=== PATIENT | female | born 1950 | race Caucasian/White ===

== ENCOUNTER 2018-09-18 16:00 | Inpatient (IN) | payer MEDICARE, OTHER ==
[2018-09-18] MEDS ORDERED: SODIUM CHLORIDE 0.9% 1,000 ML IV STA ×2 (16:38→18:48)
--- NOTE | 2018-09-18 16:46 | ED ---
General Adult HPI - General Chief complaint: Weakness Stated complaint: weakness, confusion Time Seen by Provider: 09/18/18 16:17 Source: patient, family Mode of arrival: ambulatory Limitations: no limitations - History of Present Illness Initial comments: Patient is a pleasant 68-year-old female presenting to the emergency Department with generalized weakness. Symptoms have progressed over the past 3 months or so. Patient does frequently trip and fall. Patient did have a trip and fall today and was able to get up on her own. Patient states she laid on the ground for maybe 3 or 4 hours. Family did have to help her up. Patient has been more forgetful lately and problem with simple activities such as using a remote control. Symptoms have been gradually progressive. Patient has been more depressed recently. Patient does have chronic depression. Patient questions if she needs changes with her medications. Patient denies any isolated area of weakness. Patient believes she has chronic daily fevers that is unchanged. No change within the past several days weeks or months regarding her chronic fevers. Patient denies any injury. No headache. - Related Data Home Medications Medication Instructions Recorded Confirmed Atenolol [Tenormin] 50 mg PO DAILY 08/07/17 09/18/18 Enalapril [Vasotec] 10 mg PO DAILY 08/07/17 09/18/18 Insulin NPH Human Isophane See Protocol SQ HS 08/07/17 09/18/18 [NovoLIN N] Levothyroxine Sodium [Synthroid] 112 mcg PO DAILY 08/07/17 09/18/18 QUEtiapine FUMARATE [SEROquel] 300 mg PO HS 08/07/17 09/18/18 Simvastatin [Zocor] 10 mg PO HS 08/07/17 09/18/18 metFORMIN HCL 1,000 mg PO BID 08/07/17 09/18/18 DULoxetine HCL [Cymbalta] 60 mg PO DAILY 09/18/18 09/18/18 Gabapentin [Neurontin] 100 mg PO BID 09/18/18 09/18/18 Insulin Glargine,Hum.rec.anlog 60 unit SQ HS 09/18/18 09/18/18 [Basaglar Kwikpen U-100] Allergies Allergy/AdvReac Type Severity Reaction Status Date / Time No Known Allergies Allergy Verified 09/18/18 17:00 Review of Systems ROS Statement: Those systems with pertinent positive or pertinent negative responses have been documented in the HPI. ROS Other: All systems not noted in ROS Statement are negative. Constitutional: Reports: as per HPI Eyes: Denies: eye pain ENT: Denies: ear pain Respiratory: Denies: cough, dyspnea Cardiovascular: Denies: chest pain Endocrine: Reports: fatigue (Patient states she sleeps up to 16 hours a day) Gastrointestinal: Denies: abdominal pain Genitourinary: Denies: dysuria Musculoskeletal: Denies: back pain Skin: Denies: rash Neurological: Reports: as per HPI Past Medical History Past Medical History: Diabetes Mellitus, Hyperlipidemia, Hypertension History of Any Multi-Drug Resistant Organisms: MRSA Date of last positivie culture/infection: 1999 MDRO Source:: lt foot Past Surgical History: Section, Hysterectomy, Tonsillectomy Past Psychological History: Anxiety, Depression Smoking Status: Former smoker Past Alcohol Use History: None Reported Past Drug Use History: None Reported General Exam Limitations: no limitations General appearance: alert, in no apparent distress Head exam: Present: atraumatic Eye exam: Present: normal appearance, PERRL, EOMI ENT exam: Present: normal oropharynx Neck exam: Present: normal inspection. Absent: tenderness Respiratory exam: Present: normal lung sounds bilaterally Cardiovascular Exam: Present: regular rate, normal rhythm GI/Abdominal exam: Present: soft. Absent: tenderness Extremities exam: Present: normal inspection, full ROM. Absent: tenderness Back exam: Present: normal inspection Neurological exam: Present: alert, oriented X3, CN II-XII intact. Absent: motor sensory deficit Expanded Neurological exam: Present: protecting the airway Patient oriented to: Present: person, place, time Speech: Present: fluid speech Cranial nerves: EOM's Intact: Normal, Facial Sensation: Normal Sensory exam: Upper Extremity Light Touch: Normal, Lower Extremity Light Touch: Normal Motor strength exam: RUE: 5, LUE: 5, RLE: 5, LLE: 5 Eye Response: (4) open spontaneously Motor Response: (6) obeys commands Verbal Response: (5) oriented Psychiatric exam: Present: normal affect, normal mood Skin exam: Present: normal color Course Vital Signs 09/18/18 16:04 Temperature 97.9 F Pulse Rate 71 Respiratory 20 Rate Blood Pressure 140/60 O2 Sat by Pulse 98 Oximetry EKG Findings - EKG Comments: EKG Findings:: Normal sinus rhythm 69. MN 160. QRS 94. QT 436. QTc 467. Normal axis. Normal QRS. No acute ST change. Medical Decision Making - Medical Decision Making patient reevaluated. Patient and family updated on results and plan. Patient given fluids for dehydration and insulin for hyperglycemia. Case was discussed in detail with practitioner Abigail, covering for Dr. Sanchez, who will admit for hospital call. - Lab Data Result diagrams: 09/18/18 16:42 09/18/18 16:25 Lab Results 09/18/18 09/18/18 09/18/18 Range/Units 16:25 16:25 16:25 WBC (3.8-10.6) k/uL RBC (3.80-5.40) m/uL Hgb (11.4-16.0) gm/dL Hct (34.0-46.0) % MCV (80.0-100.0) fL MCH (25.0-35.0) pg MCHC (31.0-37.0) g/dL RDW (11.5-15.5) % Plt Count (150-450) k/uL Neutrophils % % Lymphocytes % % Monocytes % % Eosinophils % % Basophils % % Neutrophils # (1.3-7.7) k/uL Lymphocytes # (1.0-4.8) k/uL Monocytes # (0-1.0) k/uL Eosinophils # (0-0.7) k/uL Basophils # (0-0.2) k/uL PT (9.0-12.0) sec INR (<1.2) APTT (22.0-30.0) sec Sodium 129 L (137-145) mmol/L Potassium 5.4 H (3.5-5.1) mmol/L Chloride 93 L (98-107) mmol/L Carbon Dioxide 22 (22-30) mmol/L Anion Gap 14 mmol/L BUN 41 H (7-17) mg/dL Creatinine 1.41 H (0.52-1.04) mg/dL Est GFR (CKD-EPI)AfAm 45 (>60 ml/min/1.73 sqM) Est GFR (CKD-EPI)NonAf 39 (>60 ml/min/1.73 sqM) Glucose 679 H* (74-99) mg/dL Plasma Lactic Acid Norris 2.1 H* (0.7-2.0) mmol/L Calcium 10.3 H (8.4-10.2) mg/dL Phosphorus 5.3 H (2.5-4.5) mg/dL Magnesium 1.6 (1.6-2.3) mg/dL Total Bilirubin 0.6 (0.2-1.3) mg/dL AST 17 (14-36) U/L ALT 19 (9-52) U/L Alkaline Phosphatase 90 (38-126) U/L Total Creatine Kinase 45 (30-135) U/L CK-MB (CK-2) 1.2 (0.0-2.4) ng/mL CK-MB (CK-2) Rel Index 2.7 Troponin I <0.012 (0.000-0.034) ng/mL NT-Pro-B Natriuret Pep pg/mL Total Protein 6.8 (6.3-8.2) g/dL Albumin 4.1 (3.5-5.0) g/dL TSH 3.550 (0.465-4.680) mIU/L Free T4 1.07 (0.78-2.19) ng/dL Free T3 pg/mL 2.1 L (2.8-5.3) pg/ml Acetone, Qual (Negative) 09/18/18 09/18/18 09/18/18 Range/Units 16:25 16:25 16:42 WBC 10.2 (3.8-10.6) k/uL RBC 4.53 (3.80-5.40) m/uL Hgb 13.3 (11.4-16.0) gm/dL Hct 41.2 (34.0-46.0) % MCV 91.0 (80.0-100.0) fL MCH 29.4 (25.0-35.0) pg MCHC 32.3 (31.0-37.0) g/dL RDW 13.2 (11.5-15.5) % Plt Count 281 (150-450) k/uL Neutrophils % 76 % Lymphocytes % 14 % Monocytes % 4 % Eosinophils % 4 % Basophils % 1 % Neutrophils # 7.8 H (1.3-7.7) k/uL Lymphocytes # 1.5 (1.0-4.8) k/uL Monocytes # 0.4 (0-1.0) k/uL Eosinophils # 0.4 (0-0.7) k/uL Basophils # 0.1 (0-0.2) k/uL PT 10.3 (9.0-12.0) sec INR 1.0 (<1.2) APTT 23.6 (22.0-30.0) sec Sodium (137-145) mmol/L Potassium (3.5-5.1) mmol/L Chloride (98-107) mmol/L Carbon Dioxide (22-30) mmol/L Anion Gap mmol/L BUN (7-17) mg/dL Creatinine (0.52-1.04) mg/dL Est GFR (CKD-EPI)AfAm (>60 ml/min/1.73 sqM) Est GFR (CKD-EPI)NonAf (>60 ml/min/1.73 sqM) Glucose (74-99) mg/dL Plasma Lactic Acid Norris (0.7-2.0) mmol/L Calcium (8.4-10.2) mg/dL Phosphorus (2.5-4.5) mg/dL Magnesium (1.6-2.3) mg/dL Total Bilirubin (0.2-1.3) mg/dL AST (14-36) U/L ALT (9-52) U/L Alkaline Phosphatase (38-126) U/L Total Creatine Kinase (30-135) U/L CK-MB (CK-2) (0.0-2.4) ng/mL CK-MB (CK-2) Rel Index Troponin I (0.000-0.034) ng/mL NT-Pro-B Natriuret Pep 85 pg/mL Total Protein (6.3-8.2) g/dL Albumin (3.5-5.0) g/dL TSH (0.465-4.680) mIU/L Free T4 (0.78-2.19) ng/dL Free T3 pg/mL (2.8-5.3) pg/ml Acetone, Qual (Negative) 09/18/18 Range/Units 17:50 WBC (3.8-10.6) k/uL RBC (3.80-5.40) m/uL Hgb (11.4-16.0) gm/dL Hct (34.0-46.0) % MCV (80.0-100.0) fL MCH (25.0-35.0) pg MCHC (31.0-37.0) g/dL RDW (11.5-15.5) % Plt Count (150-450) k/uL Neutrophils % % Lymphocytes % % Monocytes % % Eosinophils % % Basophils % % Neutrophils # (1.3-7.7) k/uL Lymphocytes # (1.0-4.8) k/uL Monocytes # (0-1.0) k/uL Eosinophils # (0-0.7) k/uL Basophils # (0-0.2) k/uL PT (9.0-12.0) sec INR (<1.2) APTT (22.0-30.0) sec Sodium (137-145) mmol/L Potassium (3.5-5.1) mmol/L Chloride (98-107) mmol/L Carbon Dioxide (22-30) mmol/L Anion Gap mmol/L BUN (7-17) mg/dL Creatinine (0.52-1.04) mg/dL Est GFR (CKD-EPI)AfAm (>60 ml/min/1.73 sqM) Est GFR (CKD-EPI)NonAf (>60 ml/min/1.73 sqM) Glucose (74-99) mg/dL Plasma Lactic Acid Norris (0.7-2.0) mmol/L Calcium (8.4-10.2) mg/dL Phosphorus (2.5-4.5) mg/dL Magnesium (1.6-2.3) mg/dL Total Bilirubin (0.2-1.3) mg/dL AST (14-36) U/L ALT (9-52) U/L Alkaline Phosphatase (38-126) U/L Total Creatine Kinase (30-135) U/L CK-MB (CK-2) (0.0-2.4) ng/mL CK-MB (CK-2) Rel Index Troponin I (0.000-0.034) ng/mL NT-Pro-B Natriuret Pep pg/mL Total Protein (6.3-8.2) g/dL Albumin (3.5-5.0) g/dL TSH (0.465-4.680) mIU/L Free T4 (0.78-2.19) ng/dL Free T3 pg/mL (2.8-5.3) pg/ml Acetone, Qual Negative (Negative) - Radiology Data Radiology results: report reviewed (computed tomography scan of the brain reveals no acute process), image reviewed (Chest x-ray shows no acute process) Disposition Clinical Impression: Hyperglycemia, Dehydration Disposition: ADMITTED IP TO THIS [facility] Condition: Serious Is patient prescribed a controlled substance at d/c from ED?: No Referrals: Nasir Perea DO [Primary Care Provider] - 1-2 days Decision Time: 18:50
[2018-09-18 17:18] LABS: Basophils # (A) 0.1 k/uL (0-0.2); Basophils % (A) 1 %; Eosinophils # (A) 0.4 k/uL (0-0.7); Eosinophils % (A) 4 %; HCT 41.2 % (34.0-46.0); HGB 13.3 gm/dL (11.4-16.0); Lymphocytes # (A) 1.5 k/uL (1.0-4.8); Lymphocytes % (A) 14 %; MCH 29.4 pg (25.0-35.0); MCHC 32.3 g/dL (31.0-37.0); Mean Platelet Volume 7.3; Monocytes # (A) 0.4 k/uL (0-1.0); Monocytes % (A) 4 %; Neutrophils # (A) 7.8 k/uL (1.3-7.7); Neutrophils % (A) 76 %; Platelet Count 281 k/uL (150-450); RBC 4.53 m/uL (3.80-5.40); RDW 13.2 % (11.5-15.5); WBC 10.2 k/uL (3.8-10.6)
[2018-09-18 17:37] LABS: Albumin 4.1 g/dL (3.5-5.0); Calcium 10.3 mg/dL (8.4-10.2); Magnesium 1.6 mg/dL (1.6-2.3); Phosphorus 5.3 mg/dL (2.5-4.5); Potassium 5.4 mmol/L (3.5-5.1); Total Bilirubin 0.6 mg/dL (0.2-1.3); Total Protein 6.8 g/dL (6.3-8.2)
--- NOTE | 2018-09-18 17:38 | CT ---
EXAMINATION: CT brain wo con DATE AND TIME: 09/18/2018 5:23 PM CLINICAL INDICATION: PHH; weakness TECHNIQUE: Standard departmental protocol. COMPARISON: None. FINDINGS: The calvarium is intact. There is no intracranial hemorrhage. There is no intracranial mass or mass effect. No definite new intra-axial or extra-axial attenuation defect. The paranasal sinuses, middle ear cavities, and mastoid sinus air cells are clear. The orbits are unremarkable. IMPRESSION: NO ACUTE PROCESS. Note: The ventricular system is more prominent than the sulcal pattern are cisterns, a pattern which can correlate with a clinical diagnosis of normal pressure hydrocephalus.
[2018-09-18 17:39] LABS: Creatine Kinase 45 U/L (30-135)
[2018-09-18 17:48] LABS: Partial Thromboplastin Time 23.6 sec (22.0-30.0); Prothrombin Time 10.3 sec (9.0-12.0)
[2018-09-18 17:52] LABS: Creatine Kinase MB 1.2 ng/mL (0.0-2.4); Troponin I <0.012 ng/mL (0.000-0.034)
[2018-09-18 17:53] LABS: T4, Free (Free Thyroxine) 1.07 ng/dL (0.78-2.19)
--- NOTE | 2018-09-18 17:58 | XR ---
EXAMINATION: XR chest 2V DATE AND TIME: 09/18/2018 5:26 PM CLINICAL INDICATION: PHH; Weakness TECHNIQUE: Departmental protocol COMPARISON: None FINDINGS: The lungs are clear. The pleural spaces are negative. The cardiac silhouette is not enlarged. The remainder of the mediastinal silhouette is unremarkable. The skeletal structures and soft tissues are negative for acute findings. IMPRESSION: NO ACUTE PROCESS.
[2018-09-18] MEDS ORDERED: INSULIN REGULAR 100 UNIT/ML VIAL IV ONE (18:48)
[2018-09-18] MEDS ORDERED: NALOXONE 0.4 MG/ML 1 ML VIAL IV PRN (18:51)
[2018-09-18 19:34] LABS: Amorphous Sediment,Urine Rare /hpf; Appearance,Urine Clear (Clear); Bacteria,Urine Occasional /hpf; Bilirubin,Urine Negative (Negative); Blood,Urine Small (Negative); Color,Urine Light Yellow; Glucose,Urine (UA) 4+ (Negative); Hyaline Casts,Urine 8 /lpf (0-2); Ketones,Urine 1+ (Negative); Leukocyte Esterase,Urine Trace (Negative); Mucus,Urine Rare /hpf; Nitrite,Urine Negative (Negative); Protein,Urine Negative (Negative); RBC,Urine 1 /hpf (0-5); Specific Gravity,Urine 1.019 (1.001-1.035); Squamous Epithelial Cell,Urine 6 /hpf (0-4); Urobilinogen,Urine <2.0 mg/dL (<2.0)
[2018-09-18 19:45] LABS: Amphetamine Screen,Urine Not Detected (NotDetected); Barbiturate Screen,Urine Not Detected (NotDetected); Benzodiazepines Screen,Urine Not Detected (NotDetected); Cocaine Screen,Urine Not Detected (NotDetected); Methadone Screen, Urine Not Detected (NotDetected); Opiate Screen,Urine Not Detected (NotDetected); Oxycodone Screen, Urine Not Detected (NotDetected); Phencyclidine Screen,Urine Not Detected (NotDetected); Tricyclic Antidepressant,Urine Detected (NotDetected); Urn Cannabinoid Scrn Not Detected (NotDetected)
[2018-09-18 20:23] LABS: Glucose,Whole Blood 450 mg/dL (75-99)
[2018-09-18 21:01] LABS: Glucose,Whole Blood 418 mg/dL (75-99)
[2018-09-18] MEDS: INSULIN ASPART 100 UNIT/ML 1 ML 10 ML VIAL SQ SCH (21:09)
[2018-09-18] MEDS: SODIUM CHLORIDE 0.9% 1,000 ML IV SCH (21:10)
[2018-09-19 02:32] VITALS: BMI 40.2
[2018-09-19 02:35] LABS: Glucose,Whole Blood 357 mg/dL (75-99)
[2018-09-19] MEDS ORDERED: INSULIN ASPART 100 UNIT/ML 1 ML 10 ML VIAL SQ ONE (02:35)
[2018-09-19] MEDS: SODIUM CHLORIDE 0.9% 1,000 ML IV SCH ×3 (05:14→22:00)
[2018-09-19 07:03] LABS: Glucose,Whole Blood 332 mg/dL (75-99)
[2018-09-19] MEDS: INSULIN ASPART 100 UNIT/ML 1 ML 10 ML VIAL SQ SCH ×6 (08:20→20:40)
[2018-09-19 08:28] LABS: Calcium 9.4 mg/dL (8.4-10.2); Potassium 4.5 mmol/L (3.5-5.1)
[2018-09-19 11:48] LABS: Glucose,Whole Blood 423 mg/dL (75-99)
--- NOTE | 2018-09-19 12:24 | P.CN ---
Psychiatric Consult - . Consult date: 09/19/18 Consult:: 09/19/18 09:26 Depression and medication review Assessment and Plan Assessment: Patient is a pleasant 68-year-old female presenting to the emergency Department with generalized weakness. Symptoms have progressed over the past 3 months or so. Patient does frequently trip and fall. Patient did have a trip and fall today and was able to get up on her own. Patient states she laid on the ground for maybe 3 or 4 hours. Family did have to help her up. Patient has been more forgetful lately and problem with simple activities such as using a remote control. Symptoms have been gradually progressive. Patient has been more depressed recently. Patient does have chronic depression. Patient questions if she needs changes with her medications. Patient denies any isolated area of weakness. Patient believes she has chronic daily fevers that is unchanged. No change within the past several days weeks or months regarding her chronic fevers. Patient denies any injury. No headache. - Related Data Home Medications Medication Instructions Recorded Confirmed Atenolol [Tenormin] 50 mg PO DAILY 08/07/17 09/18/18 Enalapril [Vasotec] 10 mg PO DAILY 08/07/17 09/18/18 Insulin NPH Human Isophane See Protocol SQ HS 08/07/17 09/18/18 [NovoLIN N] Levothyroxine Sodium [Synthroid] 112 mcg PO DAILY 08/07/17 09/18/18 QUEtiapine FUMARATE [SEROquel] 300 mg PO HS 08/07/17 09/18/18 Simvastatin [Zocor] 10 mg PO HS 08/07/17 09/18/18 metFORMIN HCL 1,000 mg PO BID 08/07/17 09/18/18 DULoxetine HCL [Cymbalta] 60 mg PO DAILY 09/18/18 09/18/18 Gabapentin [Neurontin] 100 mg PO BID 09/18/18 09/18/18 Insulin Glargine,Hum.rec.anlog 60 unit SQ HS 09/18/18 09/18/18 [Basaglyuan nApen U-100] Allergies Allergy/AdvReac Type Severity Reaction Status Date / Time No Known Allergies Allergy Verified 09/18/18 17:00 Past Medical History Past Medical History: Diabetes Mellitus, Hyperlipidemia, Hypertension History of Any Multi-Drug Resistant Organisms: MRSA Date of last positivie culture/infection: 1999 MDRO Source:: lt foot Past Surgical History: Section, Hysterectomy, Tonsillectomy Past Psychological History: Anxiety, Depression Smoking Status: Former smoker Past Alcohol Use History: None Reported Past Drug Use History: None Reported Mental Status Examination - this is a 68-year-old female who stated she's had depression for a number years and has attempted to go to [facility] partial hospitalization was told she couldn't go there because her insurance didn't cover. She came in through the ED last night with confusion and feeling depressed. General Appearance: [disheveled, appears older than stated age Speech/Language: [ slow, slurred, rambled, hesitant, halting, monotone, soft] Attitude/Behavior: [ withdrawn, indifferent] Mood: [depressed 5 out of 10, , anxious 5 out of 10, fearful, hopelessness Affect: [ flat, incongruent, blunted constricted,] Orientation: [Not time, person, place situation] Thought Content: [wnl, denies delusions, obsessions, phobias, other] Risk Factors: [Has suicidal (ideations, plan), not Homicidal (ideations, plan) Perception: [wnl, admits hallucinations (auditory, Thought Processes: [concrete, circumstantial, tangential, other] Concentration/Attention Span: [ impaired] [Per observation and interview with the patient] Recent Memory: [ impaired] [0 out of 3 in 3 minutes] Remote Memory: [ impaired] [past events, as related history] Intelligence: [below average] [based on history, based on vocabulary, syntax, grammar, and content] Judgement: [ poor] [per patient's behavior/history of present illness] Insight: [ poor] [understanding severity of illness/history of present illness] 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 PhD (1) Depression Current Visit: Yes Status: Acute Code(s): F32.9 - MAJOR DEPRESSIVE DISORDER , SINGLE EPISODE, UNSPECIFIED SNOMED Code(s): 46027346 Time with Patient: Greater than 30
[2018-09-19] MEDS ORDERED: INSULIN ASPART 100 UNIT/ML 1 ML 10 ML VIAL SQ SCH (12:30)
[2018-09-19] MEDS: DULoxetine HCL 60 MG CAPSULE.DR PO SCH (12:57)
--- NOTE | 2018-09-19 13:04 | P.HPIM ---
History of Present Illness 68-year-old pleasant female came to Hospital with complaints of lightheadedness. Patient is found to have dehydration hyperglycemia leading to dehydration from my polyuria. Patient admitted to noncompliance with the insulin. Patient denied any fever chills runny nose cough. Patient to albert creatinine is 1.4 baseline is within normal limits. Patient is doing better now patient will be started back on her regimen will use a long-acting and pre- meal insulin regimen will start her on 40 units of Lantus along with pre-meal insulin 10 units and sliding scale. Patient will be continued on IV fluids possibly can be discharged tomorrow Review of Systems REVIEW OF SYSTEMS: CONSTITUTIONAL: No fever, no malaise, no fatigue. HEENT: No recent visual problems or hearing problems. Denied any sore throat. CARDIOVASCULAR: No chest pain, orthopnea, PND, no palpitations, no syncope. PULMONARY: No shortness of breath, no cough, no hemoptysis. GASTROINTESTINAL: No diarrhea, no nausea, no vomiting, no abdominal pain. NEUROLOGICAL: No headaches, no weakness, no numbness. HEMATOLOGICAL: Denies any bleeding or petechiae. GENITOURINARY: Denies any burning micturition, frequency, or urgency. MUSCULOSKELETAL/RHEUMATOLOGICAL: Denies any joint pain, swelling, or any muscle pain. ENDOCRINE: Denies any polyuria or polydipsia. The rest of the 14-point review of systems is negative. Past Medical History Past Medical History: Diabetes Mellitus, Hyperlipidemia, Hypertension Additional Past Medical History / Comment(s): Neuropathy History of Any Multi-Drug Resistant Organisms: MRSA Date of last positivie culture/infection: 1999 MDRO Source:: lt foot Past Surgical History: Section, Hysterectomy, Tonsillectomy Past Psychological History: Anxiety, Depression Smoking Status: Former smoker Past Alcohol Use History: None Reported Past Drug Use History: None Reported - Past Family History Brother(s) Family Medical History: Dementia Medications and Allergies Home Medications Medication Instructions Recorded Confirmed Type Atenolol [Tenormin] 50 mg PO DAILY 08/07/17 09/18/18 History Enalapril [Vasotec] 10 mg PO DAILY 08/07/17 09/18/18 History Insulin NPH Human Isophane See Protocol SQ HS 08/07/17 09/18/18 History [NovoLIN N] Levothyroxine Sodium [Synthroid] 112 mcg PO DAILY 08/07/17 09/18/18 History QUEtiapine FUMARATE [SEROquel] 300 mg PO HS 08/07/17 09/18/18 History Simvastatin [Zocor] 10 mg PO HS 08/07/17 09/18/18 History metFORMIN HCL 1,000 mg PO BID 08/07/17 09/18/18 History DULoxetine HCL [Cymbalta] 60 mg PO DAILY 09/18/18 09/18/18 History Gabapentin [Neurontin] 100 mg PO BID 09/18/18 09/18/18 History Insulin Glargine,Hum.rec.anlog 60 unit SQ HS 09/18/18 09/18/18 History [Basaglar Kwikpen U-100] Allergies Allergy/AdvReac Type Severity Reaction Status Date / Time No Known Allergies Allergy Verified 09/18/18 17:00 Physical Exam Vitals: Vital Signs Temp Pulse Pulse Resp BP BP Pulse Ox 09/19/18 11:56 98.2 F 70 18 167/70 96 09/19/18 08:59 98 09/19/18 04:53 98.1 F 61 17 172/92 96 09/19/18 00:10 18 09/18/18 21:22 98.5 F 69 18 160/73 96 09/18/18 20:29 97.8 F 71 18 136/78 98 09/18/18 18:00 78 18 138/78 09/18/18 16:04 97.9 F 71 20 140/60 98 Intake and Output 09/18/18 09/19/18 09/19/18 22:59 06:59 14:59 Intake Total 700 1240 Balance 700 1240 Intake: Intake, IV Titration 220 880 Amount Sodium Chloride 0.9% 1, 220 880 000 ml @ 110 mls/hr IV . Q9H6M PENDING SALE TO [facility] Rx#:[id number] Oral 480 360 Other: # Voids 1 4 Weight 99.79 kg PHYSICAL EXAMINATION: GENERAL: The patient is alert and oriented x3, not in any acute distress. Well developed, well nourished. HEENT: Pupils are round and equally reacting to light. EOMI. No scleral icterus. No conjunctival pallor. Normocephalic, atraumatic. No pharyngeal erythema. No thyromegaly. CARDIOVASCULAR: S1 and S2 present. No murmurs, rubs, or gallops. PULMONARY: Chest is clear to auscultation, no wheezing or crackles. ABDOMEN: Soft, nontender, nondistended, normoactive bowel sounds. No palpable organomegaly. MUSCULOSKELETAL: No joint swelling or deformity. EXTREMITIES: No cyanosis, clubbing, or pedal edema. NEUROLOGICAL: Gross neurological examination did not reveal any focal deficits. SKIN: No rashes. Results CBC & Chem 7: 09/18/18 16:42 09/19/18 06:29 Labs: Abnormal Lab Results - Last 24 Hours (Table) 09/18/18 09/18/18 09/18/18 Range/Units 16:25 16:25 16:25 Neutrophils # (1.3-7.7) k/uL Sodium 129 L (137-145) mmol/L Potassium 5.4 H (3.5-5.1) mmol/L Chloride 93 L (98-107) mmol/L Carbon Dioxide (22-30) mmol/L BUN 41 H (7-17) mg/dL Creatinine 1.41 H (0.52-1.04) mg/dL Glucose 679 H* (74-99) mg/dL POC Glucose (mg/dL) (75-99) mg/dL Plasma Lactic Acid Norris 2.1 H* (0.7-2.0) mmol/L Calcium 10.3 H (8.4-10.2) mg/dL Phosphorus 5.3 H (2.5-4.5) mg/dL Free T3 pg/mL 2.1 L (2.8-5.3) pg/ml Urine Glucose (UA) 4+ H (Negative) Urine Ketones 1+ H (Negative) Urine Blood Small H (Negative) Ur Leukocyte Esterase Trace H (Negative) Urine WBC 7 H (0-5) /hpf Ur Squamous Epith Cells 6 H (0-4) /hpf Amorphous Sediment Rare H (None) /hpf Urine Bacteria Occasional H (None) /hpf Hyaline Casts 8 H (0-2) /lpf Urine Mucus Rare H (None) /hpf U Tricyclic Antidepress Detected H (NotDetected) 09/18/18 09/18/18 09/18/18 Range/Units 16:42 20:22 20:57 Neutrophils # 7.8 H (1.3-7.7) k/uL Sodium (137-145) mmol/L Potassium (3.5-5.1) mmol/L Chloride (98-107) mmol/L Carbon Dioxide (22-30) mmol/L BUN (7-17) mg/dL Creatinine (0.52-1.04) mg/dL Glucose (74-99) mg/dL POC Glucose (mg/dL) 450 H 418 H (75-99) mg/dL Plasma Lactic Acid Norris (0.7-2.0) mmol/L Calcium (8.4-10.2) mg/dL Phosphorus (2.5-4.5) mg/dL Free T3 pg/mL (2.8-5.3) pg/ml Urine Glucose (UA) (Negative) Urine Ketones (Negative) Urine Blood (Negative) Ur Leukocyte Esterase (Negative) Urine WBC (0-5) /hpf Ur Squamous Epith Cells (0-4) /hpf Amorphous Sediment (None) /hpf Urine Bacteria (None) /hpf Hyaline Casts (0-2) /lpf Urine Mucus (None) /hpf U Tricyclic Antidepress (NotDetected) 09/19/18 09/19/18 09/19/18 Range/Units 02:32 06:29 07:01 Neutrophils # (1.3-7.7) k/uL Sodium (137-145) mmol/L Potassium (3.5-5.1) mmol/L Chloride (98-107) mmol/L Carbon Dioxide 21 L (22-30) mmol/L BUN 32 H (7-17) mg/dL Creatinine (0.52-1.04) mg/dL Glucose 349 H (74-99) mg/dL POC Glucose (mg/dL) 357 H 332 H (75-99) mg/dL Plasma Lactic Acid Norris (0.7-2.0) mmol/L Calcium (8.4-10.2) mg/dL Phosphorus (2.5-4.5) mg/dL Free T3 pg/mL (2.8-5.3) pg/ml Urine Glucose (UA) (Negative) Urine Ketones (Negative) Urine Blood (Negative) Ur Leukocyte Esterase (Negative) Urine WBC (0-5) /hpf Ur Squamous Epith Cells (0-4) /hpf Amorphous Sediment (None) /hpf Urine Bacteria (None) /hpf Hyaline Casts (0-2) /lpf Urine Mucus (None) /hpf U Tricyclic Antidepress (NotDetected) 09/19/18 Range/Units 11:47 Neutrophils # (1.3-7.7) k/uL Sodium (137-145) mmol/L Potassium (3.5-5.1) mmol/L Chloride (98-107) mmol/L Carbon Dioxide (22-30) mmol/L BUN (7-17) mg/dL Creatinine (0.52-1.04) mg/dL Glucose (74-99) mg/dL POC Glucose (mg/dL) 423 H (75-99) mg/dL Plasma Lactic Acid Norris (0.7-2.0) mmol/L Calcium (8.4-10.2) mg/dL Phosphorus (2.5-4.5) mg/dL Free T3 pg/mL (2.8-5.3) pg/ml Urine Glucose (UA) (Negative) Urine Ketones (Negative) Urine Blood (Negative) Ur Leukocyte Esterase (Negative) Urine WBC (0-5) /hpf Ur Squamous Epith Cells (0-4) /hpf Amorphous Sediment (None) /hpf Urine Bacteria (None) /hpf Hyaline Casts (0-2) /lpf Urine Mucus (None) /hpf U Tricyclic Antidepress (NotDetected) Microbiology - Last 24 Hours (Table) 09/18/18 16:25 Urine Culture - Preliminary Urine,Voided Thrombosis Risk Factor Assmnt - Choose All That Apply Each Factor Represents 1 point: Obesity (BMI >25) Each Risk Factor Represents 2 Points: Age 61-74 years Other congenital or acquired thrombophilia - If yes, enter type in comment: No Thrombosis Risk Factor Assessment Total Risk Factor Score: 3 Thrombosis Risk Factor Assessment Level: Moderate Risk Assessment and Plan Plan: -Acute renal failure will azotemia from intravascular depletion dehydration from hyperglycemia continue with IV fluids -Hyperglycemia due to noncompliance with medications, patient will be started on above-mentioned regimen -Hypercalcemia secondary to intravascular well and the patient -Hypovolemic hyponatremia: Expected improvement to improve with IV fluids -Hyperkalemia secondary to DALJIT inhibitor and acute renal failure improved now commuter hold 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
[2018-09-19 14:01] LABS: Glucose,Whole Blood 446 mg/dL (75-99)
[2018-09-19 17:08] LABS: Glucose,Whole Blood 419 mg/dL (75-99)
[2018-09-19 20:25] LABS: Glucose,Whole Blood 313 mg/dL (75-99)
[2018-09-19] MEDS: GABAPENTIN 100 MG CAP PO SCH (20:39)
[2018-09-19] MEDS: ATORVASTATIN 10 MG TAB PO SCH (20:39)
[2018-09-19] MEDS: QUEtiapine 100 MG TAB PO SCH (20:46)
[2018-09-19] MEDS: INSULIN DETEMIR 100 UNIT/ML 10 ML VIAL SQ SCH ×2 (20:46→21:26)
[2018-09-19] MEDS ORDERED: INSULIN DETEMIR 100 UNIT/ML 10 ML VIAL SQ SCH (21:00)
[2018-09-20 02:30] LABS: Glucose,Whole Blood 279 mg/dL (75-99)
[2018-09-20] MEDS: SODIUM CHLORIDE 0.9% 1,000 ML IV SCH ×2 (02:56→11:19)
[2018-09-20] MEDS: INSULIN ASPART 100 UNIT/ML 1 ML 10 ML VIAL SQ SCH ×4 (02:56→22:33)
[2018-09-20] MEDS: LEVOTHYROXINE 112 MCG TAB PO SCH (05:54)
[2018-09-20 07:06] LABS: Glucose,Whole Blood 238 mg/dL (75-99)
[2018-09-20] MEDS: ATENOLOL 50 MG TAB PO SCH (08:30)
[2018-09-20] MEDS: GABAPENTIN 100 MG CAP PO SCH ×2 (08:30→22:33)
[2018-09-20] MEDS: DULoxetine HCL 60 MG CAPSULE.DR PO SCH (08:30)
[2018-09-20 12:12] LABS: Glucose,Whole Blood 252 mg/dL (75-99)
[2018-09-20 18:47] LABS: Glucose,Whole Blood 275 mg/dL (75-99)
[2018-09-20 21:00] LABS: Glucose,Whole Blood 329 mg/dL (75-99)
[2018-09-20] MEDS: ATORVASTATIN 10 MG TAB PO SCH (22:33)
[2018-09-20] MEDS: QUEtiapine 100 MG TAB PO SCH (22:33)
[2018-09-20] MEDS ORDERED: INSULIN DETEMIR 100 UNIT/ML 10 ML VIAL SQ SCH (22:45)
[2018-09-21 01:57] LABS: Glucose,Whole Blood 238 mg/dL (75-99)
[2018-09-21] MEDS: INSULIN ASPART 100 UNIT/ML 1 ML 10 ML VIAL SQ SCH ×5 (02:40→12:13)
[2018-09-21] MEDS: SODIUM CHLORIDE 0.9% 1,000 ML IV SCH ×2 (04:21→06:19)
[2018-09-21] MEDS: INSULIN DETEMIR 100 UNIT/ML 10 ML VIAL SQ SCH (05:37)
[2018-09-21 05:40] VITALS: BP 117/65; PULSE 54; RESP 20; TEMP 97.9
[2018-09-21] MEDS: LEVOTHYROXINE 112 MCG TAB PO SCH (06:17)
[2018-09-21 06:59] LABS: Glucose,Whole Blood 161 mg/dL (75-99)
[2018-09-21] MEDS ORDERED: INSULIN ASPART 100 UNIT/ML 1 ML 10 ML VIAL SQ SCH (07:30)
[2018-09-21] MEDS: GABAPENTIN 100 MG CAP PO SCH (07:59)
[2018-09-21] MEDS: ATENOLOL 50 MG TAB PO SCH (07:59)
[2018-09-21] MEDS: DULoxetine HCL 60 MG CAPSULE.DR PO SCH (07:59)
--- NOTE | 2018-09-21 10:58 | P.PN ---
Subjective Progress Note Date: 09/20/18 Rations blood sugars improved but still elevated will titrate the insulin today patient can be transferred to psychiatric floor dehydration improved hyponatremia improved. Discussed with her daughter on phone Constitutional: Denied any fatigue denied any fever. Cardio vascular: denied any chest pain, palpitations Gastrointestinal denied any nausea vomiting Pulmonary: Denied any shortness of breath cough Neurologic denied any new focal deficits All inpatient medications were reviewed and appropriate changes in these medications as dictated in the interval history and assessment and plan. Objective - Vital Signs Vital signs: Vital Signs Temp 97.9 F 09/21/18 05:00 Pulse 54 L 09/21/18 05:00 Resp 20 09/21/18 05:00 BP 117/65 09/21/18 05:00 Pulse Ox 96 09/21/18 05:00 Intake & Output 09/20/18 09/21/18 09/21/18 18:59 06:59 18:59 Intake Total 1290 Balance 1290 Intake: Intake, IV Titration 990 Amount Sodium Chloride 0.9% 1, 990 000 ml @ 110 mls/hr IV . Q9H6M PENDING SALE TO [facility] Rx#:[id number] Oral 300 Other: Voiding Method Toilet Toilet Toilet # Voids 1 1 - Exam PHYSICAL EXAMINATION: GENERAL: The patient is alert and oriented x3, not in any acute distress. Well developed, well nourished. HEENT: Pupils are round and equally reacting to light. EOMI. No scleral icterus. No conjunctival pallor. Normocephalic, atraumatic. No pharyngeal erythema. No thyromegaly. CARDIOVASCULAR: S1 and S2 present. No murmurs, rubs, or gallops. PULMONARY: Chest is clear to auscultation, no wheezing or crackles. ABDOMEN: Soft, nontender, nondistended, normoactive bowel sounds. No palpable organomegaly. MUSCULOSKELETAL: No joint swelling or deformity. EXTREMITIES: No cyanosis, clubbing, or pedal edema. NEUROLOGICAL: Gross neurological examination did not reveal any focal deficits. SKIN: No rashes. - Labs CBC & Chem 7: 09/18/18 16:42 09/19/18 06:29 Labs: Abnormal Lab Results - Last 24 Hours (Table) 09/20/18 09/20/18 09/20/18 Range/Units 12:11 17:27 20:58 POC Glucose (mg/dL) 252 H 275 H 329 H (75-99) mg/dL 09/21/18 09/21/18 Range/Units 01:55 06:58 POC Glucose (mg/dL) 238 H 161 H (75-99) mg/dL Assessment and Plan Plan: -Acute renal failure will azotemia from intravascular depletion dehydration from hyperglycemia continue with IV fluids and improved now -Hyperglycemia due to noncompliance with medications, patient will be started on above-mentioned regimen -Hypercalcemia secondary to intravascular well and the patient -Hypovolemic hyponatremia: Expected improvement to improve with IV fluids -Hyperkalemia secondary to DALJIT inhibitor and acute renal failure improved now commuter hold 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
[2018-09-21 11:10] LABS: Glucose,Whole Blood 77 mg/dL (75-99)
--- NOTE | 2018-09-21 13:05 | P.DS ---
Providers Date of admission: 09/18/18 18:51 Attending physician: Rubén Sanchez Consults: 09/18/18 18:51 Consult Physician Urgent Consulting Provider: Nato Cyr Consult Reason/Comments: depression, med review Do you want consulting provider notified?: Yes Primary care physician: Nasir Perea [facility] Course: patient is admitted for intravascularly the patient dehydration from my hyperglycemia hyperglycemia due to noncompliance with medication he did patient does have psychiatric issues is being admitted to psychiatric floor. Because of her psychiatric issues she is not very compliant with the insulin regimen. PHYSICAL EXAMINATION: GENERAL: The patient is alert and oriented x3, not in any acute distress. Well developed, well nourished. HEENT: Pupils are round and equally reacting to light. EOMI. No scleral icterus. No conjunctival pallor. Normocephalic, atraumatic. No pharyngeal erythema. No thyromegaly. CARDIOVASCULAR: S1 and S2 present. No murmurs, rubs, or gallops. PULMONARY: Chest is clear to auscultation, no wheezing or crackles. ABDOMEN: Soft, nontender, nondistended, normoactive bowel sounds. No palpable organomegaly. MUSCULOSKELETAL: No joint swelling or deformity. EXTREMITIES: No cyanosis, clubbing, or pedal edema. NEUROLOGICAL: Gross neurological examination did not reveal any focal deficits. SKIN: No rashes. Assessment and Plan Plan: -Acute renal failure will azotemia from intravascular depletion dehydration from hyperglycemia continue with IV fluids and improved now -Hyperglycemia due to noncompliance with medications -Hypercalcemia secondary to intravascular volume depletion improved now -Hypovolemic hyponatremia: improved with IV fluids -Hyperkalemia patient was started back on DALJIT inhibitor at a lower dose and recheck the potassium in couple days -Major depression: -Hyperlipidemia Patient Condition at Discharge: Serious Plan - Discharge Summary New Discharge Prescriptions: No Action Insulin NPH Human Isophane [NovoLIN N] See Protocol SQ HS metFORMIN HCL 1,000 mg PO BID Simvastatin [Zocor] 10 mg PO HS QUEtiapine FUMARATE [SEROquel] 300 mg PO HS Levothyroxine Sodium [Synthroid] 112 mcg PO DAILY Enalapril [Vasotec] 10 mg PO DAILY Atenolol [Tenormin] 50 mg PO DAILY DULoxetine HCL [Cymbalta] 60 mg PO DAILY Gabapentin [Neurontin] 100 mg PO BID Insulin Glargine,Hum.rec.anlog [Basaglar Kwikpen U-100] 60 unit SQ HS Discharge Medication List Atenolol [Tenormin] 50 mg PO DAILY 08/07/17 [History] Levothyroxine Sodium [Synthroid] 112 mcg PO DAILY 08/07/17 [History] QUEtiapine FUMARATE [SEROquel] 300 mg PO HS 08/07/17 [History] Simvastatin [Zocor] 10 mg PO HS 08/07/17 [History] metFORMIN HCL 1,000 mg PO BID 08/07/17 [History] DULoxetine HCL [Cymbalta] 60 mg PO DAILY 09/18/18 [History] Gabapentin [Neurontin] 100 mg PO BID 09/18/18 [History] Enalapril [Vasotec] 5 mg PO DAILY #0 09/21/18 [Rx] Insulin Aspart [NovoLOG (formulary)] 15 unit SQ AC-TID vial 09/21/18 [Rx] Insulin Detemir [Levemir] 50 unit SQ HS syr 09/21/18 [Rx] Follow up Appointment(s)/Referral(s): Nasir Perea DO [Primary Care Provider] - 1-2 days
--- NOTE | 2018-09-21 17:48 | P.PN ---
Progress Note - Text Progress Note Date: 09/21/18 IDENTIFICATION DATA: 68 year old woman with history of depression and anxiety was transferred to Mental health unit from medicine after being treated there for acute renal failure. INTERVAL HISTORY: Patient currently reports feeling better. Says she is no longer fearful. She reports feeling sad about missing her family. She says all her children are grown and live on their own. She is currently living with her Ex . She reports to have been having problems wither memory and feels very frustrated with the fact that she cannot remember most of the things. She admits to not eating and not taking her medications as prescribed prior to her hospitalization. She currently reports feeling safe being in the hospital. She wants her medications to be adjusted so she will be able to think well. MENTAL STATUS EXAMINATION: Patient appeared in fair grooming and hygiene. She walks with a walker as she has a tendency to fall. Her speech and thought process is linear and goal directed. Her mood is reported as sad and affect appropriate. Denies active suicidal or homicidal ideations. Denies current auditory or visual hallucinations. Denies paranoia. ASSESSMENT AND PLAN: She is currently prescribed Cymbalta and seroquel. She says she takes them through her primary care physician for depression and anxiety. Continue current medications Monitor for safety and symptoms and consider adjusting the medications as needed
[2018-09-21] MEDS ORDERED: INSULIN DETEMIR 100 UNIT/ML 10 ML VIAL SQ SCH (21:00)
== END 2018-09-21 13:55 | DRG 638 ==
LOC: EC 16:00 → 3NMEDONC 18:51
PROVIDERS: ADMIT Internal Medicine; ATTEND Internal Medicine
DX: E11.65 Type 2 diabetes mellitus with hyperglycemia (principal); E87.1 Hypo-osmolality and hyponatremia; N17.9 Acute kidney failure, unspecified; E11.40 Type 2 diabetes mellitus with diabetic neuropathy, unspecified; Z79.4 Long term (current) use of insulin; T38.3X6A Underdosing of insulin and oral hypoglycemic [antidiabetic] drugs, initial encounter; Z91.128 Patient's intentional underdosing of medication regimen for other reason; E78.5 Hyperlipidemia, unspecified; E83.52 Hypercalcemia; E86.0 Dehydration; E87.5 Hyperkalemia; F32.9 Major depressive disorder, single episode, unspecified; F41.9 Anxiety disorder, unspecified; I10 Essential (primary) hypertension; T46.4X5A Adverse effect of angiotensin-converting-enzyme inhibitors, initial encounter; R29.6 Repeated falls; Z91.81 History of falling; Z79.890 Hormone replacement therapy; Z79.899 Other long term (current) drug therapy; Z87.891 Personal history of nicotine dependence; Z90.710 Acquired absence of both cervix and uterus; Z91.19 Patient's noncompliance with other medical treatment and regimen; Z86.14 Personal history of Methicillin resistant Staphylococcus aureus infection
CPT/HCPCS: 36415; 70450; 71046; 80048; 80053; 80306; 81001; 82009; 82550; 82553; 83036; 83605; 83735; 83880; 84100; 84439; 84443; 84481; 84484; 85025; 85610; 85730; 87086; 93005; 96360; 96361; 99285

== ENCOUNTER 2018-09-21 12:15 | Inpatient (IN) | payer MEDICARE, MEDICAID ==
[2018-09-21] MEDS ORDERED: MAGNESIUM HYDROXIDE 2,400 MG/10 ML CUP PO PRN (15:41)
[2018-09-21] MEDS ORDERED: MAG HYDROX/AL HYDROX/SIMETH 30 ML CUP PO PRN (15:41)
[2018-09-21] MEDS ORDERED: INFLUENZA VACCINE (6 MOS+) 60 MCG/0.5 ML SYRINGE IM ONE (15:47)
[2018-09-21] MEDS: INSULIN ASPART (NovoLOG) 100 UNIT/ML VIAL SQ SCH ×3 (18:01→20:12)
[2018-09-21 18:11] LABS: Glucose,Whole Blood 287 mg/dL (75-99)
[2018-09-21 20:06] LABS: Glucose,Whole Blood 308 mg/dL (75-99)
[2018-09-21] MEDS: GABAPENTIN 100 MG CAP PO SCH (20:11)
[2018-09-21] MEDS: ATORVASTATIN 10 MG TAB PO SCH (20:11)
[2018-09-21] MEDS: metFORMIN 500 MG TAB PO SCH (20:11)
[2018-09-21] MEDS: INSULIN DETEMIR (LEVEMIR) 100 UNIT/ML SYR SQ SCH (20:12)
[2018-09-21] MEDS ORDERED: QUEtiapine 100 MG TAB PO SCH (21:00)
[2018-09-21 21:25] LABS: Glucose,Whole Blood 212 mg/dL (75-99)
[2018-09-22] MEDS: LEVOTHYROXINE 112 MCG TAB PO SCH (06:19)
[2018-09-22 06:31] LABS: Glucose,Whole Blood 82 mg/dL (75-99)
[2018-09-22] MEDS: INSULIN ASPART (NovoLOG) 100 UNIT/ML VIAL SQ SCH ×7 (06:46→21:19)
[2018-09-22] MEDS ORDERED: DULoxetine HCL 60 MG CAPSULE.DR PO SCH (09:00)
[2018-09-22 09:20] LABS: Glucose,Whole Blood 224 mg/dL (75-99)
[2018-09-22] MEDS: metFORMIN 500 MG TAB PO SCH ×2 (09:22→21:21)
[2018-09-22] MEDS: GABAPENTIN 100 MG CAP PO SCH (09:22)
[2018-09-22] MEDS: LISINOPRIL 10 MG TAB PO SCH (09:22)
[2018-09-22] MEDS: ATENOLOL 50 MG TAB PO SCH (09:22)
[2018-09-22] MEDS ORDERED: ETODOLAC 400 MG TAB PO SCH (11:15)
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
[2018-09-22 12:37] LABS: Glucose,Whole Blood 204 mg/dL (75-99)
[2018-09-22] MEDS: FAMOTIDINE 20 MG TAB PO SCH ×2 (13:05→21:18)
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
[2018-09-22] MEDS ORDERED: GABAPENTIN 100 MG CAP PO SCH (16:00)
[2018-09-22 17:49] LABS: Glucose,Whole Blood 129 mg/dL (75-99)
[2018-09-22 17:54] LABS: Glucose,Whole Blood 121 mg/dL (75-99)
[2018-09-22 18:24] LABS: Hemoglobin A1C 11.9 % (4.0-6.0)
[2018-09-22 20:10] LABS: Glucose,Whole Blood 177 mg/dL (75-99)
[2018-09-22] MEDS ORDERED: QUEtiapine 100 MG TAB PO SCH (21:00)
[2018-09-22] MEDS: ATORVASTATIN 10 MG TAB PO SCH (21:18)
[2018-09-22] MEDS: lamoTRIgine 25 MG TAB PO SCH (21:19)
[2018-09-22] MEDS: INSULIN DETEMIR (LEVEMIR) 100 UNIT/ML SYR SQ SCH (21:19)
[2018-09-22] MEDS: MELOXICAM 7.5 MG TAB PO SCH (21:20)
[2018-09-22] MEDS: PRAMIPEXOLE 1 MG TAB PO SCH (21:21)
[2018-09-22] MEDS: PALIPERIDONE 3 MG TAB.ER.24 PO SCH (21:21)
[2018-09-23] MEDS: LEVOTHYROXINE 112 MCG TAB PO SCH (06:12)
[2018-09-23 06:13] LABS: Glucose,Whole Blood 139 mg/dL (75-99)
[2018-09-23] MEDS: INSULIN ASPART (NovoLOG) 100 UNIT/ML VIAL SQ SCH ×7 (09:04→21:05)
[2018-09-23] MEDS: ATENOLOL 50 MG TAB PO SCH (09:05)
[2018-09-23] MEDS: LISINOPRIL 10 MG TAB PO SCH (09:05)
[2018-09-23] MEDS: FAMOTIDINE 20 MG TAB PO SCH ×2 (09:05→21:03)
[2018-09-23] MEDS: metFORMIN 500 MG TAB PO SCH ×2 (09:05→21:04)
[2018-09-23] MEDS: MELOXICAM 7.5 MG TAB PO SCH (09:05)
[2018-09-23] MEDS: ONDANSETRON ODT 4 MG TAB PO PRN (11:38)
--- NOTE | 2018-09-23 12:01 | P.PN ---
Subjective Progress Note Date: 09/23/18 Principal diagnosis: Bipolar affective disordersevere depression; chronic pain syndrome] 09/23/2018:mode reviewed:patient teamed and interviewed in office. Patient stated that she reacted to one of the medications and nauseated. Remains depressed, sad, hopeless and poor sleep Objective - Vital Signs Vital signs: Vital Signs Temp 98.6 F 09/23/18 11:35 Pulse 62 09/23/18 11:35 Resp 16 09/23/18 11:35 BP 133/65 09/23/18 11:35 Pulse Ox 96 09/23/18 11:35 Intake & Output 09/22/18 09/23/18 09/23/18 18:59 06:59 18:59 Weight 100.7 kg - Labs Labs: Abnormal Lab Results - Last 24 Hours (Table) 09/22/18 09/22/18 09/22/18 Range/Units 07:44 12:36 17:47 POC Glucose (mg/dL) 204 H 129 H (75-99) mg/dL Hemoglobin A1c 11.9 H (4.0-6.0) % 09/22/18 09/22/18 09/23/18 Range/Units 17:50 20:04 06:11 POC Glucose (mg/dL) 121 H 177 H 139 H (75-99) mg/dL Hemoglobin A1c (4.0-6.0) % Assessment and Plan Assessment: Mental Status Examination - this is a 68-year-old female who stated she's had depression for a number years and has attempted to go to [facility] partial hospitalization was told she couldn't go there because her insurance didn't cover. She came in through the ED last night with confusion and feeling depressed. General Appearance: [disheveled, appears older than stated age Speech/Language: [ slow, slurred, rambled, hesitant, halting, monotone, soft] Attitude/Behavior: [ withdrawn, indifferent] Mood: [depressed 10 out of 10, , anxious 8 out of 10, fearful, hopelessness Affect: [ flat, incongruent, blunted constricted,] Orientation: [Not time, person, place situation] Thought Content: [wnl, denies delusions, obsessions, phobias] Risk Factors: [Has suicidal (ideations, plan), not Homicidal (ideations, plan) Perception: [ admits hallucinations (auditory, Thought Processes: [concrete, circumstantial, tangential] Concentration/Attention Span: [ impaired] [Per observation and interview with the patient] Recent Memory: [ impaired] [0 out of 3 in 3 minutes] Remote Memory: [ impaired] [past events, as related history] Intelligence: [below average] [based on history, based on vocabulary, syntax, grammar, and content] Judgement: [ poor] [per patient's behavior/history of present illness] Insight: [ poor] [understanding severity of illness/history of present illness] Admitting Diagnosis: [Bipolar affective disordersevere depression; chronic pain syndrome] Patient Strengths - Personal Skills: [x] Achievements: [x] Steady employment/financial stability: [x] Housing stability: [x] Able to vocalize needs: [x]Values and traditions: [x] Motivation, determination, readiness for change: [x] Setting and pursuing goals, hopes, dreams, aspirations: [x] Resources - social, interpersonal, monetary: [x] Interpersonal relationships and supports available - family, relatives, friends : [x] Patient Limitations: [medication, non-compliance intellectual impairment, complicated medical illness lack of social supports, Initial Plan of Care: [signed in formal voluntary to [facility] and placed on 15 minute checks.Evaluation by medicine, psychiatry, nursing, social work, and occupational therapy. She'll be evaluated her biopsychosocial including her medical issues pain and diabetes etc. She'll be placed on 15 minute checks and usual [facility] therapeutic environment protocols. She will be expected to go to groups, take her medications and participate with peers and staff and a positive nature. She will be taken off her Cymbalta, gabapentin, Seroquel and placed on Invega for mood stabilization at 3 mg by mouth daily at bedtime and will titrated to resolution of symptoms, she also added Lamictal 25 mg by mouth daily at bedtime for mood stabilization, Mobic 7.5 mg by mouth twice a day instead of Lodine, and for her restless legs syndrome she will get Mirapex 1 mg by mouth daily at bedtime. She'll be teamed on a regular basis to evaluate her overall progress disposition discharge. She should go to [facility] when she is discharged and have a therapist and psychiatrist to follow her medications.] Estimated Length of Stay: [6 days] Prognosis: [good] (1) Major depress dis, severe Current Visit: Yes Status: Acute Priority: High Code(s): F32.2 - MAJOR DEPRESSV DISORD, SINGLE EPSD, SEV W/O PSYCH FEATURES SNOMED Code(s): 800942515 Plan: 09/22/2018 stop meds Seroquel, cymbalta, gabapetin start [id number] , invega 3, mirapex 1mg at bedtime and mobic 7.5 bid maintain medications 09/23/2018 Time with Patient: Less than 30
--- NOTE | 2018-09-23 12:33 | P.PN ---
Subjective This is a pleasant 68 years old female with past medical history of diabetes mellitus, type II, hyperlipidemia, hypertension, diabetic neuropathy, chronic low back pain, she ambulates with a walker. Admitted to the psychiatric unit for major depression signs and symptoms. We've been asked for follow-up for medical management and patient was having some nausea with no vomiting. Patient states that last night she has some nausea which is still going on until now. She was received Zofran about half an hour was partially relieved. No more vomiting. No abdominal pain. No chest pain or dyspnea. She didn't have bowel movement in 2 days. Her metformin was held, her current sugar is 139. Patient also denies urinary signs and symptoms. Objective - Vital Signs Vital signs: Vital Signs Temp 98.6 F 09/23/18 11:35 Pulse 62 09/23/18 11:35 Resp 16 09/23/18 11:35 BP 133/65 09/23/18 11:35 Pulse Ox 96 09/23/18 11:35 Intake & Output 09/22/18 09/23/18 09/23/18 18:59 06:59 18:59 Weight 100.7 kg - Exam GENERAL: The patient is alert and oriented x3, not in any acute distress. Obese HEENT: Pupils are round and equally reacting to light. EOMI. No scleral icterus. No conjunctival pallor. Normocephalic, atraumatic. No pharyngeal erythema. No thyromegaly. CARDIOVASCULAR: S1 and S2 present. No murmurs, rubs, or gallops. PULMONARY: Chest is clear to auscultation, no wheezing or crackles. ABDOMEN: Soft, nontender, nondistended, normoactive bowel sounds. No palpable organomegaly. MUSCULOSKELETAL: No joint swelling or deformity. EXTREMITIES: No cyanosis, clubbing, or pedal edema. NEUROLOGICAL: Gross neurological examination did not reveal any focal deficits. SKIN: No rashes. Gait: She walks using a walker - Labs Labs: Abnormal Lab Results - Last 24 Hours (Table) 09/22/18 09/22/18 09/22/18 Range/Units 07:44 12:36 17:47 POC Glucose (mg/dL) 204 H 129 H (75-99) mg/dL Hemoglobin A1c 11.9 H (4.0-6.0) % 09/22/18 09/22/18 09/23/18 Range/Units 17:50 20:04 06:11 POC Glucose (mg/dL) 121 H 177 H 139 H (75-99) mg/dL Hemoglobin A1c (4.0-6.0) % Assessment and Plan Assessment: Severe nausea, partially controlled Diabetes mellitus on metformin and insulin Essential hypertension Hyperlipidemia Major depressive, management as per primary psych team Plan: This is a pleasant 68 years old female who is seen in the site units for nausea. Symmetric treatment is provided. Advanced diet as tolerated. Keep holding metformin while patient is not eating. Continue with Lantus/Levemir at 50 units at bedtime. However patient if this keep not eating we recommend to lower the dose of Levemir to 25 units at bedtime till she starts eating again. Continue with insulin sliding scale.Labs and medication were reviewed.. Continue same treatment. Continue with symptomatic treatment. Resume home medication. Monitor lytes and vitals. DVT and GI prophylaxis. Further recommendations of the clinical course of the patient
[2018-09-23 12:48] LABS: Glucose,Whole Blood 183 mg/dL (75-99)
[2018-09-23] MEDS ORDERED: ONDANSETRON ODT 4 MG TAB PO STA (13:07)
[2018-09-23 17:41] LABS: Glucose,Whole Blood 321 mg/dL (75-99)
[2018-09-23 20:06] LABS: Glucose,Whole Blood 326 mg/dL (75-99)
[2018-09-23] MEDS: lamoTRIgine 25 MG TAB PO SCH (21:03)
[2018-09-23] MEDS: ATORVASTATIN 10 MG TAB PO SCH (21:03)
[2018-09-23] MEDS: PALIPERIDONE 3 MG TAB.ER.24 PO SCH (21:04)
[2018-09-23] MEDS: PRAMIPEXOLE 1 MG TAB PO SCH (21:04)
[2018-09-23] MEDS: INSULIN DETEMIR (LEVEMIR) 100 UNIT/ML SYR SQ SCH (21:04)
[2018-09-24] MEDS: LEVOTHYROXINE 112 MCG TAB PO SCH (05:36)
[2018-09-24 06:40] LABS: Glucose,Whole Blood 109 mg/dL (75-99)
[2018-09-24] MEDS: INSULIN ASPART (NovoLOG) 100 UNIT/ML VIAL SQ SCH ×7 (08:01→20:40)
[2018-09-24] MEDS: LISINOPRIL 10 MG TAB PO SCH (08:44)
[2018-09-24] MEDS: metFORMIN 500 MG TAB PO SCH ×2 (08:44→21:20)
[2018-09-24] MEDS: FAMOTIDINE 20 MG TAB PO SCH ×2 (08:44→21:20)
[2018-09-24] MEDS: ATENOLOL 50 MG TAB PO SCH (08:44)
--- NOTE | 2018-09-24 12:18 | P.PN ---
Subjective Progress Note Date: 09/24/18 Principal diagnosis: Bipolar affective disordersevere depression; chronic pain syndrome] 09/23/2018:cherrosita reviewed:patient teamed and interviewed in office. Patient stated that she reacted to one of the medications and nauseated. Remains depressed, sad, hopeless and poor sleep 09/24/2018: depressed 7/10, anxiety 6/10, poor sleep; chart reviewed and discussed in team Objective - Vital Signs Vital signs: Vital Signs Temp 98.7 F 09/24/18 06:22 Pulse 68 09/24/18 06:22 Resp 16 09/24/18 06:22 BP 175/77 09/24/18 06:22 Pulse Ox 96 09/23/18 11:35 - Labs Labs: Abnormal Lab Results - Last 24 Hours (Table) 09/23/18 09/23/18 09/23/18 Range/Units 12:23 17:38 20:03 POC Glucose (mg/dL) 183 H 321 H 326 H (75-99) mg/dL 09/24/18 Range/Units 06:28 POC Glucose (mg/dL) 109 H (75-99) mg/dL Assessment and Plan Assessment: Mental Status Examination - this is a 68-year-old female who stated she's had depression for a number years and has attempted to go to [facility] partial hospitalization was told she couldn't go there because her insurance didn't cover. She came in through the ED last night with confusion and feeling depressed. General Appearance: [disheveled, appears older than stated age Speech/Language: [ slow, slurred, rambled, hesitant, halting, monotone, soft] Attitude/Behavior: [ withdrawn, indifferent] Mood: [depressed 7 out of 10, , anxious 7 out of 10, fearful, hopelessness Affect: [ flat, incongruent, blunted constricted,] Orientation: [Not time, person, place situation] Thought Content: [wnl, denies delusions, obsessions, phobias] Risk Factors: [Has suicidal (ideations, plan), not Homicidal (ideations, plan) Perception: [ admits hallucinations (auditory, Thought Processes: [concrete, circumstantial, tangential] Concentration/Attention Span: [ impaired] [Per observation and interview with the patient] Recent Memory: [ impaired] [0 out of 3 in 3 minutes] Remote Memory: [ impaired] [past events, as related history] Intelligence: [below average] [based on history, based on vocabulary, syntax, grammar, and content] Judgement: [ poor] [per patient's behavior/history of present illness] Insight: [ poor] [understanding severity of illness/history of present illness] Admitting Diagnosis: [Bipolar affective disordersevere depression; chronic pain syndrome] Patient Limitations: [medication, non-compliance intellectual impairment, complicated medical illness lack of social supports, Initial Plan of Care: [signed in formal voluntary to [facility] and placed on 15 minute checks.Evaluation by medicine, psychiatry, nursing, social work, and occupational therapy. She'll be evaluated her biopsychosocial including her medical issues pain and diabetes etc. She'll be placed on 15 minute checks and usual [facility] therapeutic environment protocols. She will be expected to go to groups, take her medications and participate with peers and staff and a positive nature. She will be taken off her Cymbalta, gabapentin, Seroquel and placed on Invega for mood stabilization at 3 mg by mouth daily at bedtime and will titrated to resolution of symptoms, she also added Lamictal 50 mg by mouth daily at bedtime for mood stabilization, Mobic 7.5 mg by mouth twice a day instead of Lodine, and for her restless legs syndrome she will get Mirapex 1 mg by mouth daily at bedtime. She'll be teamed on a regular basis to evaluate her overall progress disposition discharge. She should go to [facility] when she is discharged and have a therapist and psychiatrist to follow her medications.Also add Invega 3mg ] Estimated Length of Stay: [5 days] Prognosis: [good] (1) Major depress dis, severe Current Visit: Yes Status: Acute Priority: Medium Code(s): F32.2 - MAJOR DEPRESSV DISORD, SINGLE EPSD, SEV W/O PSYCH FEATURES SNOMED Code(s): 471257332 Plan: 09/22/2018 stop meds Seroquel, cymbalta, gabapetin start [id number] , invega 3, mirapex 1mg at bedtime and mobic 7.5 bid maintain medications 09/23/2018 09/24/2018 increase lamictal 50mg po qhs Time with Patient: Less than 30
[2018-09-24 12:43] LABS: Glucose,Whole Blood 229 mg/dL (75-99)
[2018-09-24 16:33] LABS: Basophils # (A) 0.1 k/uL (0-0.2); Basophils % (A) 1 %; Eosinophils # (A) 0.4 k/uL (0-0.7); Eosinophils % (A) 5 %; HCT 34.3 % (34.0-46.0); HGB 10.9 gm/dL (11.4-16.0); Lymphocytes # (A) 1.6 k/uL (1.0-4.8); Lymphocytes % (A) 23 %; MCH 28.5 pg (25.0-35.0); MCHC 31.7 g/dL (31.0-37.0); MCV 89.7 fL (80.0-100.0); Mean Platelet Volume 6.8; Monocytes # (A) 0.3 k/uL (0-1.0); Monocytes % (A) 4 %; Neutrophils # (A) 4.5 k/uL (1.3-7.7); Neutrophils % (A) 65 %; Platelet Count 232 k/uL (150-450); RBC 3.83 m/uL (3.80-5.40); RDW 13.3 % (11.5-15.5); WBC 6.9 k/uL (3.8-10.6)
[2018-09-24 16:39] LABS: Albumin 3.3 g/dL (3.5-5.0); Calcium 9.4 mg/dL (8.4-10.2); Potassium 4.1 mmol/L (3.5-5.1); Total Bilirubin 0.3 mg/dL (0.2-1.3); Total Protein 5.8 g/dL (6.3-8.2)
--- NOTE | 2018-09-24 17:51 | CT ---
EXAMINATION TYPE: CT brain wo con DATE OF EXAM: 09/24/2018 COMPARISON: 09/18/2018 HISTORY: increased confusion, hx bipolar, depression CT DLP: 1117.4 mGycm Automated exposure control for dose reduction was used. FINDINGS: There is some cerebral cortical atrophy. There is no mass effect nor midline shift. There is no sign of intracranial hemorrhage. The calvarium is intact. There is mild mucosal thickening in the left rosalba e ethmoid sinus. IMPRESSION: MILD SINUSITIS. MILD ATROPHY. NO ACUTE INTRACRANIAL ABNORMALITY. NO CHANGE.
[2018-09-24 18:05] LABS: Glucose,Whole Blood 186 mg/dL (75-99)
[2018-09-24 20:07] LABS: Glucose,Whole Blood 210 mg/dL (75-99)
[2018-09-24] MEDS: INSULIN DETEMIR (LEVEMIR) 100 UNIT/ML SYR SQ SCH (21:16)
[2018-09-24] MEDS: PALIPERIDONE 3 MG TAB.ER.24 PO SCH (21:20)
[2018-09-24] MEDS: PRAMIPEXOLE 1 MG TAB PO SCH (21:20)
[2018-09-24] MEDS: ATORVASTATIN 10 MG TAB PO SCH (21:20)
[2018-09-24] MEDS: lamoTRIgine 25 MG TAB PO SCH (21:20)
[2018-09-25 04:09] LABS: Appearance,Urine Clear (Clear); Bilirubin,Urine Negative (Negative); Blood,Urine Negative (Negative); Color,Urine Light Yellow; Glucose,Urine (UA) Negative (Negative); Ketones,Urine Negative (Negative); Leukocyte Esterase,Urine Negative (Negative); Nitrite,Urine Negative (Negative); Protein,Urine Negative (Negative); Specific Gravity,Urine 1.006 (1.001-1.035); Urobilinogen,Urine <2.0 mg/dL (<2.0)
[2018-09-25] MEDS: LEVOTHYROXINE 112 MCG TAB PO SCH (06:25)
[2018-09-25 06:44] LABS: Glucose,Whole Blood 129 mg/dL (75-99)
[2018-09-25] MEDS: INSULIN ASPART (NovoLOG) 100 UNIT/ML VIAL SQ SCH ×8 (08:46→21:06)
[2018-09-25] MEDS: FAMOTIDINE 20 MG TAB PO SCH (08:48)
[2018-09-25] MEDS: LISINOPRIL 10 MG TAB PO SCH (08:48)
[2018-09-25] MEDS: ATENOLOL 50 MG TAB PO SCH (08:48)
[2018-09-25] MEDS: metFORMIN 500 MG TAB PO SCH ×2 (08:48→21:04)
[2018-09-25 12:38] LABS: Glucose,Whole Blood 197 mg/dL (75-99)
[2018-09-25] MEDS: ONDANSETRON ODT 4 MG TAB PO PRN (12:49)
--- NOTE | 2018-09-25 13:49 | P.PN ---
Subjective Progress Note Date: 09/25/18 Principal diagnosis: Bipolar affective disordersevere depression; chronic pain syndrome] 09/23/2018:chert reviewed:patient teamed and interviewed in office. Patient stated that she reacted to one of the medications and nauseated. Remains depressed, sad, hopeless and poor sleep 09/24/2018: depressed 7/10, anxiety 6/10, poor sleep; chart reviewed and discussed in team 09/25/2018 remains now acutely confused with lab work showing mild renal failure and increase and BUN and creatinine. She is redirectable but depressed anxious fearful Objective - Vital Signs Vital signs: Vital Signs Temp 98.7 F 09/25/18 13:13 Pulse 55 L 09/25/18 13:13 Resp 16 09/25/18 13:13 BP 192/86 09/25/18 13:13 Pulse Ox 96 09/25/18 13:13 - Labs CBC & Chem 7: 09/24/18 16:04 09/24/18 16:04 Labs: Abnormal Lab Results - Last 24 Hours (Table) 09/24/18 09/24/18 09/24/18 Range/Units 16:04 16:04 17:38 Hgb 10.9 L (11.4-16.0) gm/dL BUN 25 H (7-17) mg/dL Creatinine 1.13 H (0.52-1.04) mg/dL Glucose 222 H (74-99) mg/dL POC Glucose (mg/dL) 186 H (75-99) mg/dL AST 13 L (14-36) U/L Total Protein 5.8 L (6.3-8.2) g/dL Albumin 3.3 L (3.5-5.0) g/dL 09/24/18 09/25/18 09/25/18 Range/Units 20:06 06:28 12:29 Hgb (11.4-16.0) gm/dL BUN (7-17) mg/dL Creatinine (0.52-1.04) mg/dL Glucose (74-99) mg/dL POC Glucose (mg/dL) 210 H 129 H 197 H (75-99) mg/dL AST (14-36) U/L Total Protein (6.3-8.2) g/dL Albumin (3.5-5.0) g/dL Microbiology - Last 24 Hours (Table) 09/25/18 01:00 Urine Culture - Preliminary Urine,Clean Catch Assessment and Plan Assessment: Mental Status Examination - this is a 68-year-old female who stated she's had depression for a number years and has attempted to go to [facility] partial hospitalization was told she couldn't go there because her insurance didn't cover. She came in through the ED last night with confusion and feeling depressed. General Appearance: [disheveled, appears older than stated age Speech/Language: [ slow, slurred, rambled, hesitant, halting, monotone, soft] Attitude/Behavior: [ withdrawn, indifferent] Mood: [depressed 7 out of 10, , anxious 7 out of 10, fearful, hopelessness Affect: [ flat, incongruent, blunted constricted,] Orientation: [Not time, person, place situation] Thought Content: [wnl, denies delusions, obsessions, phobias] Risk Factors: [Has suicidal (ideations, plan), not Homicidal (ideations, plan) Perception: [ admits hallucinations (auditory, Thought Processes: [concrete, circumstantial, tangential] Concentration/Attention Span: [ impaired] [Per observation and interview with the patient] Recent Memory: [ impaired] [0 out of 3 in 3 minutes] Remote Memory: [ impaired] [past events, as related history] Intelligence: [below average] [based on history, based on vocabulary, syntax, grammar, and content] Judgement: [ poor] [per patient's behavior/history of present illness] Insight: [ poor] [understanding severity of illness/history of present illness] Admitting Diagnosis: [Bipolar affective disordersevere depression; chronic pain syndrome] Patient Limitations: [medication, non-compliance intellectual impairment, complicated medical illness lack of social supports, Initial Plan of Care: [signed in formal voluntary to [facility] and placed on 15 minute checks.Evaluation by medicine, psychiatry, nursing, social work, and occupational therapy. She'll be evaluated her biopsychosocial including her medical issues pain and diabetes etc. She'll be placed on 15 minute checks and usual [facility] therapeutic environment protocols. She will be expected to go to groups, take her medications and participate with peers and staff and a positive nature. She will be taken off her Cymbalta, gabapentin, Seroquel and placed on Invega for mood stabilization at 3 mg by mouth daily at bedtime and will titrated to resolution of symptoms, she also added Lamictal 50 mg by mouth daily at bedtime for mood stabilization, Mobic 7.5 mg by mouth twice a day instead of Lodine, and for her restless legs syndrome she will get Mirapex 1 mg by mouth daily at bedtime. She'll be teamed on a regular basis to evaluate her overall progress disposition discharge. She should go to [facility] when she is discharged and have a therapist and psychiatrist to follow her medications. Stop Invega 3mg ] Estimated Length of Stay: [5 days] Further evaluate her medical condition to resolve current delirium versus psychosis Prognosis: [good] (1) Major depress dis, severe Current Visit: Yes Status: Acute Priority: Medium Code(s): F32.2 - MAJOR DEPRESSV DISORD, SINGLE EPSD, SEV W/O PSYCH FEATURES SNOMED Code(s): 485661161 Plan: 09/22/2018 stop meds Seroquel, cymbalta, gabapetin start [id number] , invega 3, mirapex 1mg at bedtime and mobic 7.5 bid maintain medications 09/23/2018 09/24/2018 increase lamictal 50mg po qhs 09/25/2018 maintain current medications and evaluate medically by she may be acutely psychotic versus delirium. Time with Patient: Less than 30
[2018-09-25 14:33] LABS: Basophils % (A) 1 %; Eosinophils # (A) 0.4 k/uL (0-0.7); Eosinophils % (A) 5 %; HCT 35.6 % (34.0-46.0); HGB 11.7 gm/dL (11.4-16.0); Lymphocytes # (A) 1.2 k/uL (1.0-4.8); Lymphocytes % (A) 16 %; MCH 29.1 pg (25.0-35.0); MCHC 32.8 g/dL (31.0-37.0); MCV 88.7 fL (80.0-100.0); Monocytes # (A) 0.3 k/uL (0-1.0); Monocytes % (A) 3 %; Neutrophils # (A) 5.8 k/uL (1.3-7.7); Neutrophils % (A) 74 %; Platelet Count 230 k/uL (150-450); RBC 4.01 m/uL (3.80-5.40); RDW 13.1 % (11.5-15.5); WBC 7.8 k/uL (3.8-10.6)
[2018-09-25 15:11] LABS: Albumin 3.5 g/dL (3.5-5.0); Calcium 9.6 mg/dL (8.4-10.2); Potassium 4.2 mmol/L (3.5-5.1); Total Bilirubin 0.5 mg/dL (0.2-1.3)
--- NOTE | 2018-09-25 16:00 | P.PN ---
Subjective 68-year-old female with type 2 diabetes mellitus admitted to second floor for management of bipolar disorder I was asked to reevaluate the patient and patient is known to me as she was discharged psychiatric floor from my service after she was treated for dehydration and elevated blood sugars. Patient is more confused and was nauseous and her did vomit 4 times. Patient medications were changed her Invega was discontinued patient was started on risperidol, patient is definitely more confused than when I discharged her with the patient is able to provide history to me patient does have baseline dementia is bit tremulous patient had a CAT scan of the head which did not show any significant abnormality, CBC CMP no abnormality except for mildly elevated blood glucose patient is comparing of minimal right lower quadrant abdominal pain for but her abdomen is soft patient also received Zofran which may be contributing to her tremor apart from Risperdal. Constitutional: Denied any fatigue denied any fever. Cardio vascular: denied any chest pain, palpitations Gastrointestinal denied any nausea vomiting Pulmonary: Denied any shortness of breath cough Neurologic denied any new focal deficits All inpatient medications were reviewed and appropriate changes in these medications as dictated in the interval history and assessment and plan. Objective - Vital Signs Vital signs: Vital Signs Temp 98.7 F 09/25/18 13:13 Pulse 55 L 09/25/18 13:13 Resp 16 09/25/18 13:13 BP 192/86 09/25/18 13:13 Pulse Ox 96 09/25/18 13:13 - Exam PHYSICAL EXAMINATION: GENERAL: The patient is alert and oriented x2-3, not in any acute distress. Well developed, well nourished. Bit tremulous HEENT: Pupils are round and equally reacting to light. EOMI. No scleral icterus. No conjunctival pallor. Normocephalic, atraumatic. No pharyngeal erythema. No thyromegaly. CARDIOVASCULAR: S1 and S2 present. No murmurs, rubs, or gallops. PULMONARY: Chest is clear to auscultation, no wheezing or crackles. ABDOMEN: Soft, nontender, nondistended, normoactive bowel sounds. No palpable organomegaly. MUSCULOSKELETAL: No joint swelling or deformity. EXTREMITIES: No cyanosis, clubbing, or pedal edema. NEUROLOGICAL: Gross neurological examination did not reveal any focal deficits. SKIN: No rashes. - Labs CBC & Chem 7: 09/25/18 14:20 09/25/18 14:20 Labs: Abnormal Lab Results - Last 24 Hours (Table) 09/24/18 09/24/18 09/24/18 Range/Units 16:04 16:04 17:38 Hgb 10.9 L (11.4-16.0) gm/dL Sodium (137-145) mmol/L BUN 25 H (7-17) mg/dL Creatinine 1.13 H (0.52-1.04) mg/dL Glucose 222 H (74-99) mg/dL POC Glucose (mg/dL) 186 H (75-99) mg/dL AST 13 L (14-36) U/L Total Protein 5.8 L (6.3-8.2) g/dL Albumin 3.3 L (3.5-5.0) g/dL 09/24/18 09/25/18 09/25/18 Range/Units 20:06 06:28 12:29 Hgb (11.4-16.0) gm/dL Sodium (137-145) mmol/L BUN (7-17) mg/dL Creatinine (0.52-1.04) mg/dL Glucose (74-99) mg/dL POC Glucose (mg/dL) 210 H 129 H 197 H (75-99) mg/dL AST (14-36) U/L Total Protein (6.3-8.2) g/dL Albumin (3.5-5.0) g/dL 09/25/18 Range/Units 14:20 Hgb (11.4-16.0) gm/dL Sodium 136 L (137-145) mmol/L BUN 22 H (7-17) mg/dL Creatinine (0.52-1.04) mg/dL Glucose 216 H (74-99) mg/dL POC Glucose (mg/dL) (75-99) mg/dL AST (14-36) U/L Total Protein 6.0 L (6.3-8.2) g/dL Albumin (3.5-5.0) g/dL Microbiology - Last 24 Hours (Table) 09/25/18 01:00 Urine Culture - Preliminary Urine,Clean Catch Assessment and Plan Plan: -Worsening confusion, toxic encephalopathy from medications: I believe this is secondary to changes in her medications, I do not see any organic cause for her confusion at this time patient does have baseline dementia. Type 2 diabetes mellitus: Continue with present regimen. -Nausea and vomiting probably peptic ulcer disease patient the will be continued on Pepcid and as needed Zofran but if she continues to have the symptoms will obtain abdominal imaging and will be started on Protonix -Back pain chronic -Major depression -Hypertension -Hyperlipidemia For above-mentioned medical problems patient was resumed on appropriate medications
[2018-09-25 17:25] LABS: Glucose,Whole Blood 259 mg/dL (75-99)
[2018-09-25 20:26] LABS: Glucose,Whole Blood 353 mg/dL (75-99)
[2018-09-25] MEDS: INSULIN DETEMIR (LEVEMIR) 100 UNIT/ML SYR SQ SCH (21:04)
[2018-09-25] MEDS: MEMANTINE 5 MG TAB PO SCH (21:04)
[2018-09-25] MEDS: PRAMIPEXOLE 1 MG TAB PO SCH (21:04)
[2018-09-25] MEDS: DONEPEZIL 5 MG TAB PO SCH (21:04)
[2018-09-25] MEDS: risperiDONE 0.25 MG TAB PO SCH (21:04)
[2018-09-25] MEDS: lamoTRIgine 25 MG TAB PO SCH (21:04)
[2018-09-25] MEDS: ATORVASTATIN 10 MG TAB PO SCH (21:11)
[2018-09-26 01:04] LABS: Glucose,Whole Blood 142 mg/dL (75-99)
--- NOTE | 2018-09-26 01:46 | CT ---
EXAMINATION TYPE: CT brain wo con DATE OF EXAM: 09/26/2018 COMPARISON: 09/24/2018 HISTORY: AMS CT DLP: 1159 mGycm Automated exposure control for dose reduction was used. FINDINGS: There is cerebral cortical atrophy. There is no mass effect nor midline shift. There is no sign of in tracranial hemorrhage. Calvarium is intact. IMPRESSION: CEREBRAL ATROPHY. NO ACUTE INTRACRANIAL ABNORMALITY. MILD ETHMOID SINUSITIS. NO CHANGE COMPARED TO .
[2018-09-26 02:12] LABS: Basophils # (A) 0.1 k/uL (0-0.2); Basophils % (A) 1 %; Eosinophils # (A) 0.4 k/uL (0-0.7); Eosinophils % (A) 4 %; HCT 37.5 % (34.0-46.0); HGB 11.9 gm/dL (11.4-16.0); Lymphocytes # (A) 1.6 k/uL (1.0-4.8); Lymphocytes % (A) 18 %; MCH 28.6 pg (25.0-35.0); MCHC 31.8 g/dL (31.0-37.0); MCV 89.9 fL (80.0-100.0); Monocytes # (A) 0.4 k/uL (0-1.0); Monocytes % (A) 4 %; Neutrophils # (A) 6.3 k/uL (1.3-7.7); Neutrophils % (A) 71 %; Platelet Count 275 k/uL (150-450); RBC 4.17 m/uL (3.80-5.40); RDW 13.3 % (11.5-15.5); WBC 8.9 k/uL (3.8-10.6)
[2018-09-26 02:25] LABS: Calcium 9.7 mg/dL (8.4-10.2); Potassium 4.1 mmol/L (3.5-5.1)
[2018-09-26 02:53] LABS: Glucose,Whole Blood 119 mg/dL (75-99)
[2018-09-26] MEDS: hydrALAZINE HCL 10 MG TAB PO PRN ×2 (05:09→18:14)
[2018-09-26 06:02] LABS: Glucose,Whole Blood 138 mg/dL (75-99)
[2018-09-26] MEDS: LEVOTHYROXINE 112 MCG TAB PO SCH (06:32)
[2018-09-26] MEDS: INSULIN ASPART (NovoLOG) 100 UNIT/ML VIAL SQ SCH ×7 (08:57→20:52)
[2018-09-26] MEDS: LISINOPRIL 10 MG TAB PO SCH (08:57)
[2018-09-26] MEDS: MEMANTINE 5 MG TAB PO SCH ×2 (08:58→21:05)
[2018-09-26] MEDS: risperiDONE 0.25 MG TAB PO SCH ×2 (08:58→21:05)
[2018-09-26] MEDS: ATENOLOL 50 MG TAB PO SCH (08:58)
[2018-09-26] MEDS: metFORMIN 500 MG TAB PO SCH ×2 (08:58→21:06)
[2018-09-26] MEDS: FAMOTIDINE 20 MG TAB PO SCH (08:58)
--- NOTE | 2018-09-26 11:29 | P.PN ---
Subjective Progress Note Date: 09/26/18 Principal diagnosis: Bipolar affective disordersevere depression; chronic pain syndrome] 09/23/2018:chert reviewed:patient teamed and interviewed in office. Patient stated that she reacted to one of the medications and nauseated. Remains depressed, sad, hopeless and poor sleep 09/24/2018: depressed 7/10, anxiety 6/10, poor sleep; chart reviewed and discussed in team 09/25/2018 remains now acutely confused with lab work showing mild renal failure and increase and BUN and creatinine. She is redirectable but depressed anxious fearful 09/26/2018: Due to her confusion last night the medicine team was called to evaluate. The recommendation is that the encephalopathy is due to change in medications and she is stabilizing today. She is oriented to person place and time. Maintain one-to-one on her for safety. Objective - Vital Signs Vital signs: Vital Signs Temp 98.7 F 09/25/18 13:13 Pulse 65 09/26/18 09:53 Resp 17 09/26/18 09:53 BP 142/78 09/26/18 09:53 Pulse Ox 98 09/26/18 09:53 - Labs CBC & Chem 7: 09/26/18 02:00 09/26/18 02:00 Labs: Abnormal Lab Results - Last 24 Hours (Table) 09/25/18 09/25/18 09/25/18 Range/Units 12:29 14:20 14:20 Sodium 136 L (137-145) mmol/L BUN 22 H (7-17) mg/dL Creatinine (0.52-1.04) mg/dL Glucose 216 H (74-99) mg/dL POC Glucose (mg/dL) 197 H (75-99) mg/dL Total Protein 6.0 L (6.3-8.2) g/dL Lamotrigine 0.6 L (2.0-15.0) ug/mL 09/25/18 09/25/18 09/26/18 Range/Units 17:23 20:22 00:50 Sodium (137-145) mmol/L BUN (7-17) mg/dL Creatinine (0.52-1.04) mg/dL Glucose (74-99) mg/dL POC Glucose (mg/dL) 259 H 353 H 142 H (75-99) mg/dL Total Protein (6.3-8.2) g/dL Lamotrigine (2.0-15.0) ug/mL 09/26/18 09/26/18 09/26/18 Range/Units 02:00 02:41 06:01 Sodium (137-145) mmol/L BUN 26 H (7-17) mg/dL Creatinine 1.11 H (0.52-1.04) mg/dL Glucose 133 H (74-99) mg/dL POC Glucose (mg/dL) 119 H 138 H (75-99) mg/dL Total Protein (6.3-8.2) g/dL Lamotrigine (2.0-15.0) ug/mL Microbiology - Last 24 Hours (Table) 09/25/18 01:00 Urine Culture - Preliminary Urine,Clean Catch Assessment and Plan Assessment: Mental Status Examination - this is a 68-year-old female who stated she's had depression for a number years and has attempted to go to [facility] partial hospitalization was told she couldn't go there because her insurance didn't cover. She came in through the ED last night with confusion and feeling depressed. General Appearance: [disheveled, appears older than stated age Speech/Language: [ slow, slurred, rambled, hesitant, halting, monotone, soft] Attitude/Behavior: [ withdrawn, indifferent] Mood: [depressed 7 out of 10, , anxious 7 out of 10, fearful, hopelessness Affect: [ flat, incongruent, blunted constricted,] Orientation: [Not time, person, place situation] Thought Content: [wnl, denies delusions, obsessions, phobias] Risk Factors: [Has suicidal (ideations, plan), not Homicidal (ideations, plan) Perception: [ admits hallucinations (auditory, Thought Processes: [concrete, circumstantial, tangential] Concentration/Attention Span: [ impaired] [Per observation and interview with the patient] Recent Memory: [ impaired] [0 out of 3 in 3 minutes] Remote Memory: [ impaired] [past events, as related history] Intelligence: [below average] [based on history, based on vocabulary, syntax, grammar, and content] Judgement: [ poor] [per patient's behavior/history of present illness] Insight: [ poor] [understanding severity of illness/history of present illness] Admitting Diagnosis: [Bipolar affective disordersevere depression; chronic pain syndrome] Patient Limitations: [medication, non-compliance intellectual impairment, complicated medical illness lack of social supports, Initial Plan of Care: [signed in formal voluntary to [facility] and placed on 15 minute checks.Evaluation by medicine, psychiatry, nursing, social work, and occupational therapy. She'll be evaluated her biopsychosocial including her medical issues pain and diabetes etc. She'll be placed on 15 minute checks and usual [facility] therapeutic environment protocols. She will be expected to go to groups, take her medications and participate with peers and staff and a positive nature. She will be taken off her Cymbalta, gabapentin, Seroquel and placed on Invega for mood stabilization at 3 mg by mouth daily at bedtime and will titrated to resolution of symptoms, she also added Lamictal 50 mg by mouth daily at bedtime for mood stabilization, Mobic 7.5 mg by mouth twice a day instead of Lodine, and for her restless legs syndrome she will get Mirapex 1 mg by mouth daily at bedtime. She'll be teamed on a regular basis to evaluate her overall progress disposition discharge. She should go to [facility] when she is discharged and have a therapist and psychiatrist to follow her medications. Stop Invega 3mg ] Estimated Length of Stay: [4 days] Further evaluate her medical condition to resolve current delirium versus psychosis Prognosis: [good] (1) Major depress dis, severe Current Visit: Yes Status: Acute Priority: Medium Code(s): F32.2 - MAJOR DEPRESSV DISORD, SINGLE EPSD, SEV W/O PSYCH FEATURES SNOMED Code(s): 583316687 Plan: 09/22/2018 stop meds Seroquel, cymbalta, gabapetin start [id number] , invega 3, mirapex 1mg at bedtime and mobic 7.5 bid maintain medications 09/23/2018 09/24/2018 increase lamictal 50mg po qhs 09/25/2018 maintain current medications and evaluate medically by she may be acutely psychotic versus delirium. 09/26/2018: Will maintain her current medications and should not make any changes over the weekend and allow her to metabolically stabilized which will help with her delirium. Time with Patient: Less than 30
[2018-09-26 12:39] LABS: Glucose,Whole Blood 177 mg/dL (75-99)
[2018-09-26 17:36] LABS: Glucose,Whole Blood 296 mg/dL (75-99)
[2018-09-26 20:16] LABS: Glucose,Whole Blood 280 mg/dL (75-99)
[2018-09-26] MEDS: INSULIN DETEMIR (LEVEMIR) 100 UNIT/ML SYR SQ SCH (20:51)
[2018-09-26] MEDS: lamoTRIgine 25 MG TAB PO SCH (21:05)
[2018-09-26] MEDS: DONEPEZIL 5 MG TAB PO SCH (21:05)
[2018-09-26] MEDS: ATORVASTATIN 10 MG TAB PO SCH (21:05)
[2018-09-26] MEDS: PRAMIPEXOLE 1 MG TAB PO SCH (21:06)
[2018-09-27 01:59] LABS: Glucose,Whole Blood 217 mg/dL (75-99)
[2018-09-27] MEDS: hydrALAZINE HCL 10 MG TAB PO PRN (01:59)
[2018-09-27] MEDS: LEVOTHYROXINE 112 MCG TAB PO SCH (06:25)
[2018-09-27 06:40] LABS: Glucose,Whole Blood 118 mg/dL (75-99)
[2018-09-27] MEDS: INSULIN ASPART (NovoLOG) 100 UNIT/ML VIAL SQ SCH ×7 (06:54→21:02)
[2018-09-27] MEDS: MEMANTINE 5 MG TAB PO SCH ×3 (10:14→20:40)
[2018-09-27] MEDS: metFORMIN 500 MG TAB PO SCH ×3 (10:14→20:43)
[2018-09-27] MEDS: risperiDONE 0.25 MG TAB PO SCH ×3 (10:14→20:44)
[2018-09-27] MEDS: ATENOLOL 50 MG TAB PO SCH ×2 (10:14→10:47)
[2018-09-27] MEDS: LISINOPRIL 10 MG TAB PO SCH ×2 (10:14→10:47)
[2018-09-27] MEDS: FAMOTIDINE 20 MG TAB PO SCH ×2 (10:14→10:48)
--- NOTE | 2018-09-27 10:36 | P.PN ---
Progress Note - Text Interval history: The patient is found in her room lying in bed. She is under one-to-one observation. The patient is lying comfortably in bed she appears to be in no physical distress. For the duration of our interaction she keeps her eyes closed despite my request for her to open them. She verbalizes several brief responses. She indicates her mood is tired, otherwise okay. She reports no complaint of pain or dizziness. She does not respond to questions pertaining to orientation or her activity during the morning. Vital signs reviewed. Labs reviewed including blood sugars. Case was discussed with nursing and one-to-one supervision staff. Mental status exam: The patient is a morbidly obese female appearing her stated age. She has a disheveled appearance she is dressed in hospital gowns and is covered with a blanket. She has no spontaneous speech she provide some brief answers. Her eyes remained closed throughout the session. The interaction was limited as she would provide no response to several questions asked. There is no observed evidence of any involuntary repetitive movements. She appears to be comfortable in no acute physical distress. Plan: We will continue to monitor the patient for safety. She will be seen again by internal medicine for any further recommendations. It appears her has been changes to her medication as there was some thought that they may be causing delirium. She did not eat breakfast this morning we will continue to monitor her food and water intake. We will encourage participation in the milieu.
[2018-09-27 12:50] LABS: Glucose,Whole Blood 157 mg/dL (75-99)
[2018-09-27 17:29] LABS: Glucose,Whole Blood 166 mg/dL (75-99)
[2018-09-27 20:12] LABS: Glucose,Whole Blood 177 mg/dL (75-99)
[2018-09-27] MEDS: lamoTRIgine 25 MG TAB PO SCH (20:40)
[2018-09-27] MEDS: DONEPEZIL 5 MG TAB PO SCH (20:40)
[2018-09-27] MEDS: ATORVASTATIN 10 MG TAB PO SCH (20:41)
[2018-09-27] MEDS: PRAMIPEXOLE 1 MG TAB PO SCH (20:44)
[2018-09-27] MEDS: INSULIN DETEMIR (LEVEMIR) 100 UNIT/ML SYR SQ SCH (21:00)
[2018-09-28] MEDS: LEVOTHYROXINE 112 MCG TAB PO SCH (06:17)
[2018-09-28 06:23] LABS: Glucose,Whole Blood 79 mg/dL (75-99)
[2018-09-28 08:36] LABS: Glucose,Whole Blood 149 mg/dL (75-99)
[2018-09-28] MEDS: LISINOPRIL 10 MG TAB PO SCH (09:11)
[2018-09-28] MEDS: ATENOLOL 50 MG TAB PO SCH (09:11)
[2018-09-28] MEDS: risperiDONE 0.25 MG TAB PO SCH ×2 (09:12→21:38)
[2018-09-28] MEDS: FAMOTIDINE 20 MG TAB PO SCH (09:12)
[2018-09-28] MEDS: metFORMIN 500 MG TAB PO SCH ×2 (09:12→21:38)
[2018-09-28] MEDS: MEMANTINE 5 MG TAB PO SCH ×2 (09:12→21:38)
[2018-09-28] MEDS: INSULIN ASPART (NovoLOG) 100 UNIT/ML VIAL SQ SCH ×7 (09:12→21:40)
--- NOTE | 2018-09-28 12:58 | P.PN ---
Progress Note - Text Interval history: The patient is found in her room she is seated upright in a wheelchair she has one-to-one staff present. The patient's eyes are open upon presentation. She does not recall speaking with me yesterday. She indicates her mood is good. She provides brief yes or no type answers to select questions other questions she provides no response. She remains an impaired historian. Mental status exam: The patient is an obese female she seated upright in a wheelchair she makes eye contact for brief periods of our interaction otherwise she looks forward at the wall. She will provide some brief answers to only a few questions in the form of yes or no she provides no full statement answers. She is not able to explain why she is here she provides no answers to questions pertaining to orientation other than knowing that she is on a psychiatric unit. It is unclear if she is responding to hallucinations or just experiencing thought blocking in general. She is seated calmly there is no agitated behavior she will have a smiling affect at times. She does seem to lose focus and briefly reconnects when her name is called. She appears to be in no physical distress. Insight and judgment are impaired. She endorses no thoughts of harming herself or others. Plan: The patient will continue on her current psychotropic medications. We will monitor her for safety. She continues to of one-to-one supervision for safety. Vital signs reviewed.
[2018-09-28 13:47] LABS: Glucose,Whole Blood 79 mg/dL (75-99)
[2018-09-28] MEDS: ACETAMINOPHEN TAB 325 MG TAB PO PRN ×2 (15:35→22:30)
[2018-09-28 18:03] LABS: Glucose,Whole Blood 104 mg/dL (75-99)
[2018-09-28 20:15] LABS: Glucose,Whole Blood 232 mg/dL (75-99)
[2018-09-28] MEDS: PRAMIPEXOLE 1 MG TAB PO SCH (21:38)
[2018-09-28] MEDS: DONEPEZIL 5 MG TAB PO SCH (21:38)
[2018-09-28] MEDS: lamoTRIgine 25 MG TAB PO SCH (21:38)
[2018-09-28] MEDS: ATORVASTATIN 10 MG TAB PO SCH (21:38)
[2018-09-28] MEDS: INSULIN DETEMIR (LEVEMIR) 100 UNIT/ML SYR SQ SCH (21:39)
[2018-09-29 00:36] LABS: Glucose,Whole Blood 222 mg/dL (75-99)
[2018-09-29 06:35] LABS: Glucose,Whole Blood 100 mg/dL (75-99)
[2018-09-29] MEDS: LEVOTHYROXINE 112 MCG TAB PO SCH (07:03)
[2018-09-29] MEDS: metFORMIN 500 MG TAB PO SCH ×2 (08:19→21:22)
[2018-09-29] MEDS: ATENOLOL 50 MG TAB PO SCH (08:19)
[2018-09-29] MEDS: risperiDONE 0.25 MG TAB PO SCH (08:20)
[2018-09-29] MEDS: FAMOTIDINE 20 MG TAB PO SCH (08:20)
[2018-09-29] MEDS: INSULIN ASPART (NovoLOG) 100 UNIT/ML VIAL SQ SCH ×7 (08:20→21:22)
[2018-09-29] MEDS: LISINOPRIL 10 MG TAB PO SCH (08:20)
[2018-09-29] MEDS: MEMANTINE 5 MG TAB PO SCH (08:20)
[2018-09-29 12:25] LABS: Glucose,Whole Blood 211 mg/dL (75-99)
--- NOTE | 2018-09-29 13:26 | P.PN ---
Subjective Progress Note Date: 09/29/18 Principal diagnosis: Bipolar affective disordersevere depression; chronic pain syndrome] 09/23/2018:cherrosita reviewed:patient teamed and interviewed in office. Patient stated that she reacted to one of the medications and nauseated. Remains depressed, sad, hopeless and poor sleep 09/24/2018: depressed 7/10, anxiety 6/10, poor sleep; chart reviewed and discussed in team 09/25/2018 remains now acutely confused with lab work showing mild renal failure and increase and BUN and creatinine. She is redirectable but depressed anxious fearful 09/26/2018: Due to her confusion last night the medicine team was called to evaluate. The recommendation is that the encephalopathy is due to change in medications and she is stabilizing today. She is oriented to person place and time. Maintain one-to-one on her for safety. 09/29/2018: Due to her continued confusion and review of the chart along with team this morning we decided to stop all her psychiatric meds. Objective - Vital Signs Vital signs: Vital Signs Temp 98.3 F 09/29/18 00:57 Pulse 59 L 09/29/18 08:32 Resp 18 09/29/18 08:32 BP 161/72 09/29/18 08:32 Pulse Ox 95 09/28/18 06:55 Intake & Output 09/28/18 09/29/18 09/29/18 18:59 06:59 18:59 Weight 100.7 kg - Labs CBC & Chem 7: 09/26/18 02:00 09/26/18 02:00 Labs: Abnormal Lab Results - Last 24 Hours (Table) 09/28/18 09/28/18 09/29/18 Range/Units 17:59 20:14 00:34 POC Glucose (mg/dL) 104 H 232 H 222 H (75-99) mg/dL 09/29/18 09/29/18 Range/Units 06:31 12:23 POC Glucose (mg/dL) 100 H 211 H (75-99) mg/dL Assessment and Plan Assessment: Mental Status Examination - this is a 68-year-old female who stated she's had depression for a number years and has attempted to go to [facility] partial hospitalization was told she couldn't go there because her insurance didn't cover. She came in through the ED last night with confusion and feeling depressed. General Appearance: [disheveled, appears older than stated age Speech/Language: [ slow, slurred, rambled, hesitant, halting, monotone, soft] Attitude/Behavior: [ withdrawn, indifferent] Mood: [depressed 7 out of 10, , anxious 7 out of 10, fearful, hopelessness Affect: [ flat, incongruent, blunted constricted,] Orientation: [Not time, person, place situation] Thought Content: [wnl, denies delusions, obsessions, phobias] Risk Factors: [Has suicidal (ideations, plan), not Homicidal (ideations, plan) Perception: [ admits hallucinations (auditory, Thought Processes: [concrete, circumstantial, tangential] Concentration/Attention Span: [ impaired] [Per observation and interview with the patient] Recent Memory: [ impaired] [0 out of 3 in 3 minutes] Remote Memory: [ impaired] [past events, as related history] Intelligence: [below average] [based on history, based on vocabulary, syntax, grammar, and content] Judgement: [ poor] [per patient's behavior/history of present illness] Insight: [ poor] [understanding severity of illness/history of present illness] Admitting Diagnosis: [Bipolar affective disordersevere depression; chronic pain syndrome] Patient Limitations: [medication, non-compliance intellectual impairment, complicated medical illness lack of social supports, Initial Plan of Care: [signed in formal voluntary to [facility] and placed on 15 minute checks.Evaluation by medicine, psychiatry, nursing, social work, and occupational therapy. She'll be evaluated her biopsychosocial including her medical issues pain and diabetes etc. She'll be placed on 15 minute checks and usual [facility] therapeutic environment protocols. She will be expected to go to groups, take her medications and participate with peers and staff and a positive nature. She will be taken off her Cymbalta, gabapentin, Seroquel and placed on Invega for mood stabilization at 3 mg by mouth daily at bedtime and will titrated to resolution of symptoms, she also added Lamictal 50 mg by mouth daily at bedtime for mood stabilization, Mobic 7.5 mg by mouth twice a day instead of Lodine, and for her restless legs syndrome she will get Mirapex 1 mg by mouth daily at bedtime. She'll be teamed on a regular basis to evaluate her overall progress disposition discharge. She should go to [facility] when she is discharged and have a therapist and psychiatrist to follow her medications. Stop Invega 3mg ] 09/29/2018: Psychiatric meds will be held Estimated Length of Stay: [4 days] Further evaluate her medical condition to resolve current delirium versus psychosis Prognosis: [Guarded] (1) Major depress dis, severe Current Visit: Yes Status: Acute Priority: Medium Code(s): F32.2 - MAJOR DEPRESSV DISORD, SINGLE EPSD, SEV W/O PSYCH FEATURES SNOMED Code(s): 509777890 Plan: 09/22/2018 stop meds Seroquel, cymbalta, gabapetin start [id number] , invega 3, mirapex 1mg at bedtime and mobic 7.5 bid maintain medications 09/23/2018 09/24/2018 increase lamictal 50mg po qhs 09/25/2018 maintain current medications and evaluate medically by she may be acutely psychotic versus delirium. 09/26/2018: Will maintain her current medications and should not make any changes over the weekend and allow her to metabolically stabilized which will help with her delirium. 09/29/2018. All her psychiatric medications can including Lamictal and Risperdal Mirapex Aricept and Namenda Time with Patient: Less than 30
[2018-09-29 17:53] LABS: Glucose,Whole Blood 270 mg/dL (75-99)
[2018-09-29 19:53] LABS: Glucose,Whole Blood 374 mg/dL (75-99)
[2018-09-29] MEDS: ATORVASTATIN 10 MG TAB PO SCH (21:21)
[2018-09-29] MEDS: INSULIN DETEMIR (LEVEMIR) 100 UNIT/ML SYR SQ SCH (21:22)
[2018-09-30 04:12] LABS: Glucose,Whole Blood 140 mg/dL (75-99)
[2018-09-30] MEDS: LEVOTHYROXINE 112 MCG TAB PO SCH (06:43)
[2018-09-30 06:51] LABS: Glucose,Whole Blood 138 mg/dL (75-99)
[2018-09-30] MEDS: INSULIN ASPART (NovoLOG) 100 UNIT/ML VIAL SQ SCH ×7 (09:12→21:40)
[2018-09-30] MEDS: metFORMIN 500 MG TAB PO SCH ×3 (09:13→21:42)
[2018-09-30] MEDS: LISINOPRIL 10 MG TAB PO SCH ×2 (09:13→09:50)
[2018-09-30] MEDS: FAMOTIDINE 20 MG TAB PO SCH ×2 (09:13→09:49)
--- NOTE | 2018-09-30 10:04 | XR ---
EXAMINATION TYPE: XR chest 1V portable DATE OF EXAM: 09/30/2018 COMPARISON: Prior chest x-ray 09/18/2018 HISTORY: Hypoxemia TECHNIQUE: Single frontal view of the chest is obtained. FINDINGS: Patient is rotated. There is no focal air space opacity, pleural effusion, or pneumothorax seen. The cardiac silhouette size is accentuated, may be in part due to technique. The osseous st ructures are intact. IMPRESSION: Possible cardiomegaly. Rotated exam. Follow-up as dictated.
--- NOTE | 2018-09-30 10:07 | XR ---
Abdomen HISTORY: Distention with hypoactive bowel sounds, abnormal physical exam Frontal view of the abdomen on 2 images Comparison to prior exam 01/14/2013 Postop changes are noted in the lumbar sacral spine status post fusion and laminectomy change as on p rior. Patient is rotated. Calcified gallstones are again noted right upper quadrant. Lung bases are c lear. No evident pneumoperitoneum or bowel obstruction. Unusual cube-like appearance noted at the lev el of the luminal rectum could possibly be pharmaceutical service representative of stool, consider follow-up to exclude for eign body. IMPRESSION: Postop changes, cholelithiasis. Difficult to exclude foreign body as described.
--- NOTE | 2018-09-30 11:38 | P.PN ---
Subjective Progress Note Date: 09/30/18 Principal diagnosis: Bipolar affective disordersevere depression; chronic pain syndrome] 09/23/2018:cherrosita reviewed:patient teamed and interviewed in office. Patient stated that she reacted to one of the medications and nauseated. Remains depressed, sad, hopeless and poor sleep 09/24/2018: depressed 7/10, anxiety 6/10, poor sleep; chart reviewed and discussed in team 09/25/2018 remains now acutely confused with lab work showing mild renal failure and increase and BUN and creatinine. She is redirectable but depressed anxious fearful 09/26/2018: Due to her confusion last night the medicine team was called to evaluate. The recommendation is that the encephalopathy is due to change in medications and she is stabilizing today. She is oriented to person place and time. Maintain one-to-one on her for safety. 09/29/2018: Due to her continued confusion and review of the chart along with team this morning we decided to stop all her psychiatric meds. 09/30/2018: Her meds of now been held for 24 hours little bit more alert however short-term memory is still vacant will ask internal medicine to see if we need neurology to further evaluate what can be causing her confusion sensor electrodes electrolytes and CBCs are all within normal she is pleasant to talk to and usually is sleeping and wakes and a startle Objective - Vital Signs Vital signs: Vital Signs Temp 98.1 F 09/30/18 10:39 Pulse 79 09/30/18 10:39 Resp 16 09/30/18 07:36 BP 158/68 09/30/18 10:39 Pulse Ox 97 09/30/18 10:39 Intake & Output 09/29/18 09/30/18 09/30/18 18:59 06:59 18:59 Intake Total 25 Balance 25 Weight 100.7 kg Intake: Oral 25 - Labs CBC & Chem 7: 09/26/18 02:00 09/26/18 02:00 Labs: Abnormal Lab Results - Last 24 Hours (Table) 09/29/18 09/29/18 09/29/18 Range/Units 12:23 17:52 19:52 POC Glucose (mg/dL) 211 H 270 H 374 H (75-99) mg/dL 09/30/18 09/30/18 Range/Units 04:08 06:47 POC Glucose (mg/dL) 140 H 138 H (75-99) mg/dL Assessment and Plan Assessment: Mental Status Examination - this is a 68-year-old female who stated she's had depression for a number years and has attempted to go to [facility] partial hospitalization was told she couldn't go there because her insurance didn't cover. She came in through the ED last night with confusion and feeling depressed. General Appearance: [disheveled, appears older than stated age Speech/Language: [ slow, slurred, rambled, hesitant, halting, monotone, soft] Attitude/Behavior: [ withdrawn, indifferent] Mood: [depressed 7 out of 10, , anxious 7 out of 10, fearful, hopelessness Affect: [ flat, incongruent, blunted constricted,] Orientation: [Not time, person, place situation] Thought Content: [wnl, denies delusions, obsessions, phobias] Risk Factors: [Has suicidal (ideations, plan), not Homicidal (ideations, plan) Perception: [ admits hallucinations (auditory, Thought Processes: [concrete, circumstantial, tangential] Concentration/Attention Span: [ impaired] [Per observation and interview with the patient] Recent Memory: [ impaired] [0 out of 3 in 3 minutes] Remote Memory: [ impaired] [past events, as related history] Intelligence: [below average] [based on history, based on vocabulary, syntax, grammar, and content] Judgement: [ poor] [per patient's behavior/history of present illness] Insight: [ poor] [understanding severity of illness/history of present illness] Admitting Diagnosis: [Bipolar affective disordersevere depression; chronic pain syndrome] Patient Limitations: [medication, non-compliance intellectual impairment, complicated medical illness lack of social supports, Initial Plan of Care: [signed in formal voluntary to [facility] and placed on 15 minute checks.Evaluation by medicine, psychiatry, nursing, social work, and occupational therapy. She'll be evaluated her biopsychosocial including her medical issues pain and diabetes etc. She'll be placed on 15 minute checks and usual [facility] therapeutic environment protocols. She will be expected to go to groups, take her medications and participate with peers and staff and a positive nature. She will be taken off her Cymbalta, gabapentin, Seroquel and placed on Invega for mood stabilization at 3 mg by mouth daily at bedtime and will titrated to resolution of symptoms, she also added Lamictal 50 mg by mouth daily at bedtime for mood stabilization, Mobic 7.5 mg by mouth twice a day instead of Lodine, and for her restless legs syndrome she will get Mirapex 1 mg by mouth daily at bedtime. She'll be teamed on a regular basis to evaluate her overall progress disposition discharge. She should go to [facility] when she is discharged and have a therapist and psychiatrist to follow her medications. Stop Invega 3mg ] 09/29/2018: Psychiatric meds will be held Estimated Length of Stay: [4 days] Further evaluate her medical condition to resolve current delirium dementia versus psychosis. She is today unable to participate in any mental status examination she answers her name does not know the hospital date time or how she got the hospital. Prognosis: [Guarded] (1) Major depress dis, severe Current Visit: Yes Status: Acute Priority: Medium Code(s): F32.2 - MAJOR DEPRESSV DISORD, SINGLE EPSD, SEV W/O PSYCH FEATURES SNOMED Code(s): 386674436 Plan: 09/22/2018 stop meds Seroquel, cymbalta, gabapetin start [id number] , invega 3, mirapex 1mg at bedtime and mobic 7.5 bid maintain medications 09/23/2018 09/24/2018 increase lamictal 50mg po qhs 09/25/2018 maintain current medications and evaluate medically by she may be acutely psychotic versus delirium. 09/26/2018: Will maintain her current medications and should not make any changes over the weekend and allow her to metabolically stabilized which will help with her delirium. 09/29/2018. All her psychiatric medications can including Lamictal and Risperdal Mirapex Aricept and Namenda 09/30/2018: Still holding all her psychiatric meds Time with Patient: Less than 30
[2018-09-30 12:39] LABS: Glucose,Whole Blood 209 mg/dL (75-99)
[2018-09-30] MEDS ORDERED: LACTULOSE 20 GM/30 ML CUP PO SCH (15:00)
[2018-09-30 15:21] LABS: Basophils # (A) 0.1 k/uL (0-0.2); Basophils % (A) 1 %; Eosinophils # (A) 0.4 k/uL (0-0.7); Eosinophils % (A) 4 %; HCT 41.3 % (34.0-46.0); HGB 13.2 gm/dL (11.4-16.0); Lymphocytes # (A) 2.4 k/uL (1.0-4.8); Lymphocytes % (A) 23 %; MCH 28.8 pg (25.0-35.0); MCHC 31.9 g/dL (31.0-37.0); MCV 90.3 fL (80.0-100.0); Mean Platelet Volume 7.3; Monocytes # (A) 0.6 k/uL (0-1.0); Monocytes % (A) 6 %; Neutrophils % (A) 66 %; Platelet Count 334 k/uL (150-450); RBC 4.57 m/uL (3.80-5.40); RDW 13.1 % (11.5-15.5); WBC 10.7 k/uL (3.8-10.6)
[2018-09-30 15:31] LABS: Albumin 3.9 g/dL (3.5-5.0); Calcium 9.4 mg/dL (8.4-10.2); Potassium 4.2 mmol/L (3.5-5.1); Total Bilirubin 0.6 mg/dL (0.2-1.3); Total Protein 6.7 g/dL (6.3-8.2)
--- NOTE | 2018-09-30 15:33 | P.PN ---
Subjective 68-year-old female with type 2 diabetes mellitus admitted to second floor for management of bipolar disorder I was asked to reevaluate the patient and patient is known to me as she was discharged psychiatric floor from my service after she was treated for dehydration and elevated blood sugars. Patient is more confused and was nauseous and her did vomit 4 times. Patient medications were changed her Invega was discontinued patient was started on risperidol, patient is definitely more confused than when I discharged her with the patient is able to provide history to me patient does have baseline dementia is bit tremulous patient had a CAT scan of the head which did not show any significant abnormality, CBC CMP no abnormality except for mildly elevated blood glucose patient is comparing of minimal right lower quadrant abdominal pain for but her abdomen is soft patient also received Zofran which may be contributing to her tremor apart from Risperdal. 09/30/2018 I was asked to reevaluate the patient as patient is more. Patient is definitely more confused when I valid the patient although patient clinically looks well except for confusion. Family confusion is secondary to the medications mostly psychiatric medications, there is a concern about had abdominal distention her abdomen is soft sluggish bowel sounds because of which he obtain abdominal x-ray which is suspicious for cholelithiasis although patient does not have any right upper quadrant pain or tenderness will obtain ultrasound of the gallbladder. We'll obtain basic labs CBC CMP and urinalysis. Patient at this point of time will not require inpatient hospitalization to medicine. Constitutional: Denied any fatigue denied any fever. Cardio vascular: denied any chest pain, palpitations Gastrointestinal denied any nausea vomiting Pulmonary: Denied any shortness of breath cough Neurologic denied any new focal deficits All inpatient medications were reviewed and appropriate changes in these medications as dictated in the interval history and assessment and plan. Objective - Vital Signs Vital signs: Vital Signs Temp 98.1 F 09/30/18 10:39 Pulse 79 09/30/18 10:39 Resp 16 09/30/18 07:36 BP 158/68 09/30/18 10:39 Pulse Ox 97 09/30/18 10:39 Intake & Output 09/29/18 09/30/18 09/30/18 18:59 06:59 18:59 Intake Total 25 Balance 25 Weight 100.7 kg 100.7 kg Intake: Oral 25 Other: # Bowel Movements 1 - Exam PHYSICAL EXAMINATION: GENERAL: The patient is alert and oriented x1, not in any acute distress. Well developed, well nourished. Bit tremulous HEENT: Pupils are round and equally reacting to light. EOMI. No scleral icterus. No conjunctival pallor. Normocephalic, atraumatic. No pharyngeal erythema. No thyromegaly. CARDIOVASCULAR: S1 and S2 present. No murmurs, rubs, or gallops. PULMONARY: Chest is clear to auscultation, no wheezing or crackles. ABDOMEN: Soft, nontender, nondistended, sluggish bowel sounds. No palpable organomegaly. MUSCULOSKELETAL: No joint swelling or deformity. EXTREMITIES: No cyanosis, clubbing, or pedal edema. NEUROLOGICAL: Gross neurological examination did not reveal any focal deficits. SKIN: No rashes. - Labs CBC & Chem 7: 09/30/18 15:07 09/26/18 02:00 Labs: Abnormal Lab Results - Last 24 Hours (Table) 09/29/18 09/29/18 09/30/18 Range/Units 17:52 19:52 04:08 WBC (3.8-10.6) k/uL POC Glucose (mg/dL) 270 H 374 H 140 H (75-99) mg/dL 09/30/18 09/30/18 09/30/18 Range/Units 06:47 12:34 15:07 WBC 10.7 H (3.8-10.6) k/uL POC Glucose (mg/dL) 138 H 209 H (75-99) mg/dL Assessment and Plan Plan: -Worsening confusion, toxic encephalopathy from medications: I believe this is secondary to changes in her psychiatric medications, these medications are presently discontinued patient does have dementia at baseline which is moderate -Constipation will use lactulose for constipation Type 2 diabetes mellitus: Continue with present regimen. -Nausea and vomiting probably peptic ulcer disease patient the will be continued on Pepcid and as needed Zofran but if she continues to have the symptoms will obtain abdominal imaging and will be started on Protonix -Back pain chronic -Major depression -Hypertension -Hyperlipidemia For above-mentioned medical problems patient was resumed on appropriate medications
[2018-09-30 17:39] LABS: Glucose,Whole Blood 254 mg/dL (75-99)
[2018-09-30 20:25] LABS: Glucose,Whole Blood 255 mg/dL (75-99)
[2018-09-30] MEDS: INSULIN DETEMIR (LEVEMIR) 100 UNIT/ML SYR SQ SCH (21:41)
[2018-09-30] MEDS: ATORVASTATIN 10 MG TAB PO SCH (21:41)
[2018-10-01 06:09] LABS: Glucose,Whole Blood 94 mg/dL (75-99)
[2018-10-01] MEDS: LEVOTHYROXINE 112 MCG TAB PO SCH (06:21)
[2018-10-01] MEDS: hydrALAZINE HCL 10 MG TAB PO PRN (06:21)
[2018-10-01] MEDS: INSULIN ASPART (NovoLOG) 100 UNIT/ML VIAL SQ SCH ×7 (06:48→21:16)
[2018-10-01] MEDS: metFORMIN 500 MG TAB PO SCH ×2 (08:57→21:12)
[2018-10-01] MEDS: LISINOPRIL 10 MG TAB PO SCH (08:57)
[2018-10-01] MEDS: ATENOLOL 50 MG TAB PO SCH (08:57)
[2018-10-01] MEDS: FAMOTIDINE 20 MG TAB PO SCH (08:57)
[2018-10-01] MEDS ORDERED: LACTULOSE 20 GM/30 ML CUP PO PRN (09:00)
--- NOTE | 2018-10-01 09:15 | US ---
EXAMINATION TYPE: US gallbladder DATE OF EXAM: 10/01/2018 COMPARISON: CLINICAL HISTORY: Abd. X-ray positive for calcified gallstones. Xray showed gallstones, NPO EXAM MEASUREMENTS: Liver Length: 16.4 cm Gallbladder Wall: 0.2 cm CBD: 0.4 cm CHD: 0.4 cm Right Kidney: 8.7 x 4.5 x 4.5 cm Pancreas: Echogenic in appearance. Tail obscured by overlying bowel gas Liver: Heterogenous and echogenic. Gallbladder: Multiple mobile echogenic foci Evidence for sonographic Grover's sign: neg CBD: wnl CHD: wnl Right Kidney: Cortical tissue appears lobular. Medial anechoic lesion seen at hilum - 0.9 x 0.7 cm IMPRESSION: 1. Multiple gallstones without wall thickening or pericholecystic fluid. 2. Probable fatty hepatic infiltration versus diffuse hepatocellular disease.
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
[2018-10-01 12:43] LABS: Glucose,Whole Blood 255 mg/dL (75-99)
--- NOTE | 2018-10-01 13:28 | P.PN ---
Subjective 68-year-old female with type 2 diabetes mellitus admitted to second floor for management of bipolar disorder I was asked to reevaluate the patient and patient is known to me as she was discharged psychiatric floor from my service after she was treated for dehydration and elevated blood sugars. Patient is more confused and was nauseous and her did vomit 4 times. Patient medications were changed her Invega was discontinued patient was started on risperidol, patient is definitely more confused than when I discharged her with the patient is able to provide history to me patient does have baseline dementia is bit tremulous patient had a CAT scan of the head which did not show any significant abnormality, CBC CMP no abnormality except for mildly elevated blood glucose patient is comparing of minimal right lower quadrant abdominal pain for but her abdomen is soft patient also received Zofran which may be contributing to her tremor apart from Risperdal. 09/30/2018 I was asked to reevaluate the patient as patient is more. Patient is definitely more confused when I valid the patient although patient clinically looks well except for confusion. Family confusion is secondary to the medications mostly psychiatric medications, there is a concern about had abdominal distention her abdomen is soft sluggish bowel sounds because of which he obtain abdominal x-ray which is suspicious for cholelithiasis although patient does not have any right upper quadrant pain or tenderness will obtain ultrasound of the gallbladder. We'll obtain basic labs CBC CMP and urinalysis. Patient at this point of time will not require inpatient hospitalization to medicine. 10/01/2018 Patient is feeling much better today, no overnight events, had a bowel movement couple less today. Patient is more alert and awake mental status close to her baseline. Constitutional: Denied any fatigue denied any fever. Cardio vascular: denied any chest pain, palpitations Gastrointestinal denied any nausea vomiting Pulmonary: Denied any shortness of breath cough Neurologic denied any new focal deficits All inpatient medications were reviewed and appropriate changes in these medications as dictated in the interval history and assessment and plan. Objective - Vital Signs Vital signs: Vital Signs Temp 98.0 F 10/01/18 06:04 Pulse 91 10/01/18 06:13 Resp 15 10/01/18 06:04 BP 160/90 10/01/18 06:56 Pulse Ox 94 L 10/01/18 06:04 Intake & Output 09/30/18 10/01/18 10/01/18 18:59 06:59 18:59 Intake Total 25 Balance 25 Weight 100.7 kg Intake: Oral 25 Other: # Bowel Movements 1 - Exam PHYSICAL EXAMINATION: GENERAL: The patient is alert and oriented x2-3, not in any acute distress. Well developed, well nourished. Bit tremulous HEENT: Pupils are round and equally reacting to light. EOMI. No scleral icterus. No conjunctival pallor. Normocephalic, atraumatic. No pharyngeal erythema. No thyromegaly. CARDIOVASCULAR: S1 and S2 present. No murmurs, rubs, or gallops. PULMONARY: Chest is clear to auscultation, no wheezing or crackles. ABDOMEN: Soft, nontender, nondistended, sluggish bowel sounds. No palpable organomegaly. MUSCULOSKELETAL: No joint swelling or deformity. EXTREMITIES: No cyanosis, clubbing, or pedal edema. NEUROLOGICAL: Gross neurological examination did not reveal any focal deficits. SKIN: No rashes. - Labs CBC & Chem 7: 09/30/18 15:07 09/30/18 15:07 Labs: Abnormal Lab Results - Last 24 Hours (Table) 09/30/18 09/30/18 09/30/18 Range/Units 15:07 15:07 17:25 WBC 10.7 H (3.8-10.6) k/uL Sodium 135 L (137-145) mmol/L Chloride 96 L (98-107) mmol/L BUN 33 H (7-17) mg/dL Glucose 327 H (74-99) mg/dL POC Glucose (mg/dL) 254 H (75-99) mg/dL 09/30/18 10/01/18 Range/Units 20:10 12:38 WBC (3.8-10.6) k/uL Sodium (137-145) mmol/L Chloride (98-107) mmol/L BUN (7-17) mg/dL Glucose (74-99) mg/dL POC Glucose (mg/dL) 255 H 255 H (75-99) mg/dL Assessment and Plan Plan: -Worsening confusion, toxic encephalopathy from medications: Improved significantly after discontinuation. -Cholelithiasis: Follow with general surgery as an outpatient no symptoms at this time -Constipation will use lactulose for constipation. Resolved now Type 2 diabetes mellitus: Continue with present regimen. -Nausea and vomiting probably peptic ulcer disease or cholelithiasis symptoms improved now -Back pain chronic -Major depression -Hypertension -Hyperlipidemia F
[2018-10-01 17:39] LABS: Appearance,Urine Cloudy (Clear); Bacteria,Urine Rare /hpf; Bilirubin,Urine Negative (Negative); Blood,Urine Negative (Negative); Color,Urine Yellow; Glucose,Urine (UA) 2+ (Negative); Ketones,Urine Negative (Negative); Leukocyte Esterase,Urine Moderate (Negative); Mucus,Urine Rare /hpf; Nitrite,Urine Negative (Negative); PH, Urine 5.5 (5.0-8.0); Protein,Urine 1+ (Negative); RBC,Urine 2 /hpf (0-5); Specific Gravity,Urine 1.024 (1.001-1.035); Squamous Epithelial Cell,Urine 17 /hpf (0-4); Urobilinogen,Urine <2.0 mg/dL (<2.0); WBC,Urine 5 /hpf (0-5)
[2018-10-01 17:40] LABS: Glucose,Whole Blood 201 mg/dL (75-99)
[2018-10-01 20:52] LABS: Glucose,Whole Blood 302 mg/dL (75-99)
[2018-10-01] MEDS: ATORVASTATIN 10 MG TAB PO SCH (21:12)
[2018-10-01] MEDS: INSULIN DETEMIR (LEVEMIR) 100 UNIT/ML SYR SQ SCH (21:13)
[2018-10-02 06:24] LABS: Glucose,Whole Blood 86 mg/dL (75-99)
[2018-10-02] MEDS: LEVOTHYROXINE 112 MCG TAB PO SCH (06:33)
[2018-10-02] MEDS: ATENOLOL 50 MG TAB PO SCH (08:01)
[2018-10-02] MEDS: metFORMIN 500 MG TAB PO SCH ×2 (08:02→21:46)
[2018-10-02] MEDS: FAMOTIDINE 20 MG TAB PO SCH (08:02)
[2018-10-02] MEDS: LISINOPRIL 10 MG TAB PO SCH (08:02)
[2018-10-02] MEDS: INSULIN ASPART (NovoLOG) 100 UNIT/ML VIAL SQ SCH ×7 (09:46→21:44)
--- NOTE | 2018-10-02 10:18 | P.PN ---
Subjective Progress Note Date: 10/01/18 Principal diagnosis: Bipolar affective disordersevere depression; chronic pain syndrome] 09/23/2018:cherrosita reviewed:patient teamed and interviewed in office. Patient stated that she reacted to one of the medications and nauseated. Remains depressed, sad, hopeless and poor sleep 09/24/2018: depressed 7/10, anxiety 6/10, poor sleep; chart reviewed and discussed in team 09/25/2018 remains now acutely confused with lab work showing mild renal failure and increase and BUN and creatinine. She is redirectable but depressed anxious fearful 09/26/2018: Due to her confusion last night the medicine team was called to evaluate. The recommendation is that the encephalopathy is due to change in medications and she is stabilizing today. She is oriented to person place and time. Maintain one-to-one on her for safety. 09/29/2018: Due to her continued confusion and review of the chart along with team this morning we decided to stop all her psychiatric meds. 09/30/2018: Her meds of now been held for 24 hours little bit more alert however short-term memory is still vacant will ask internal medicine to see if we need neurology to further evaluate what can be causing her confusion sensor electrodes electrolytes and CBCs are all within normal she is pleasant to talk to and usually is sleeping and wakes and a startle Objective - Vital Signs Vital signs: Vital Signs Temp 98.4 F 10/02/18 07:00 Pulse 77 10/02/18 07:00 Resp 12 10/02/18 07:00 BP 138/77 10/02/18 07:00 Pulse Ox 94 L 10/01/18 06:04 - Labs CBC & Chem 7: 09/30/18 15:07 09/30/18 15:07 Labs: Abnormal Lab Results - Last 24 Hours (Table) 10/01/18 10/01/18 10/01/18 Range/Units 12:38 17:38 20:50 POC Glucose (mg/dL) 255 H 201 H 302 H (75-99) mg/dL Urine Appearance (Clear) Urine Protein (Negative) Urine Glucose (UA) (Negative) Ur Leukocyte Esterase (Negative) Ur Squamous Epith Cells (0-4) /hpf Urine Bacteria (None) /hpf Urine Mucus (None) /hpf 10/01/18 Range/Units Unknown POC Glucose (mg/dL) (75-99) mg/dL Urine Appearance Cloudy H (Clear) Urine Protein 1+ H (Negative) Urine Glucose (UA) 2+ H (Negative) Ur Leukocyte Esterase Moderate H (Negative) Ur Squamous Epith Cells 17 H (0-4) /hpf Urine Bacteria Rare H (None) /hpf Urine Mucus Rare H (None) /hpf Assessment and Plan Assessment: Mental Status Examination - this is a 68-year-old female who stated she's had depression for a number years and has attempted to go to [facility] partial hospitalization was told she couldn't go there because her insurance didn't cover. She came in through the ED last night with confusion and feeling depressed. General Appearance: [disheveled, appears older than stated age Speech/Language: [ slow, slurred, rambled, hesitant, halting, monotone, soft] Attitude/Behavior: [ withdrawn, indifferent] Mood: [depressed 7 out of 10, , anxious 7 out of 10, fearful, hopelessness Affect: [ flat, incongruent, blunted constricted,] Orientation: [Not time, person, place situation] Thought Content: [wnl, denies delusions, obsessions, phobias] Risk Factors: [Has suicidal (ideations, plan), not Homicidal (ideations, plan) Perception: [ admits hallucinations (auditory, Thought Processes: [concrete, circumstantial, tangential] Concentration/Attention Span: [ impaired] [Per observation and interview with the patient] Recent Memory: [ impaired] [0 out of 3 in 3 minutes] Remote Memory: [ impaired] [past events, as related history] Intelligence: [below average] [based on history, based on vocabulary, syntax, grammar, and content] Judgement: [ poor] [per patient's behavior/history of present illness] Insight: [ poor] [understanding severity of illness/history of present illness] Admitting Diagnosis: [Bipolar affective disordersevere depression; chronic pain syndrome] Patient Limitations: [medication, non-compliance intellectual impairment, complicated medical illness lack of social supports, Initial Plan of Care: [signed in formal voluntary to [facility] and placed on 15 minute checks.Evaluation by medicine, psychiatry, nursing, social work, and occupational therapy. She'll be evaluated her biopsychosocial including her medical issues pain and diabetes etc. She'll be placed on 15 minute checks and usual [facility] therapeutic environment protocols. She will be expected to go to groups, take her medications and participate with peers and staff and a positive nature. She will be taken off her Cymbalta, gabapentin, Seroquel and placed on Invega for mood stabilization at 3 mg by mouth daily at bedtime and will titrated to resolution of symptoms, she also added Lamictal 50 mg by mouth daily at bedtime for mood stabilization, Mobic 7.5 mg by mouth twice a day instead of Lodine, and for her restless legs syndrome she will get Mirapex 1 mg by mouth daily at bedtime. She'll be teamed on a regular basis to evaluate her overall progress disposition discharge. She should go to [facility] when she is discharged and have a therapist and psychiatrist to follow her medications. Stop Invega 3mg ] 09/29/2018: Psychiatric meds will be held Estimated Length of Stay: [4 days] Further evaluate her medical condition to resolve current delirium dementia versus psychosis. She is today unable to participate in any mental status examination she answers her name does not know the hospital date time or how she got the hospital. Prognosis: [Guarded] (1) Major depress dis, severe Current Visit: Yes Status: Acute Priority: Medium Code(s): F32.2 - MAJOR DEPRESSV DISORD, SINGLE EPSD, SEV W/O PSYCH FEATURES SNOMED Code(s): 677975592 Plan: 09/22/2018 stop meds Seroquel, cymbalta, gabapetin start , invega 3, mirapex 1mg at bedtime and mobic 7.5 bid maintain medications 09/23/2018 09/24/2018 increase lamictal 50mg po qhs 09/25/2018 maintain current medications and evaluate medically by she may be acutely psychotic versus delirium. 09/26/2018: Will maintain her current medications and should not make any changes over the weekend and allow her to metabolically stabilized which will help with her delirium. 09/29/2018. All her psychiatric medications can including Lamictal and Risperdal Mirapex Aricept and Namenda 09/30/2018: Still holding all her psychiatric meds Time with Patient: Less than 30
[2018-10-02 12:36] LABS: Glucose,Whole Blood 128 mg/dL (75-99)
--- NOTE | 2018-10-02 13:49 | P.PN ---
Subjective Progress Note Date: 10/02/18 Principal diagnosis: Bipolar affective disordersevere depression; chronic pain syndrome] 09/23/2018:cherrosita reviewed:patient teamed and interviewed in office. Patient stated that she reacted to one of the medications and nauseated. Remains depressed, sad, hopeless and poor sleep 09/24/2018: depressed 7/10, anxiety 6/10, poor sleep; chart reviewed and discussed in team 09/25/2018 remains now acutely confused with lab work showing mild renal failure and increase and BUN and creatinine. She is redirectable but depressed anxious fearful 09/26/2018: Due to her confusion last night the medicine team was called to evaluate. The recommendation is that the encephalopathy is due to change in medications and she is stabilizing today. She is oriented to person place and time. Maintain one-to-one on her for safety. 09/29/2018: Due to her continued confusion and review of the chart along with team this morning we decided to stop all her psychiatric meds. 09/30/2018: Her meds of now been held for 24 hours little bit more alert however short-term memory is still vacant will ask internal medicine to see if we need neurology to further evaluate what can be causing her confusion sensor electrodes electrolytes and CBCs are all within normal she is pleasant to talk to and usually is sleeping and wakes and a startle 10/01/2018 more alert and awake peers that she may have urinary tract infection and will await UA 10/02/2018 more alert and awake today participating in groups needing one-to- one and safety denies any suicidal ideation she does have a large amount of leukoesterase and her urine analysis. Chart reviewed and will team today for deciding whether she needs to continue one on one Objective - Vital Signs Vital signs: Vital Signs Temp 98.4 F 10/02/18 07:00 Pulse 77 10/02/18 07:00 Resp 12 10/02/18 07:00 BP 138/77 10/02/18 07:00 Pulse Ox 94 L 10/01/18 06:04 - Labs CBC & Chem 7: 09/30/18 15:07 09/30/18 15:07 Labs: Abnormal Lab Results - Last 24 Hours (Table) 10/01/18 10/01/18 10/01/18 Range/Units 12:38 17:38 20:50 POC Glucose (mg/dL) 255 H 201 H 302 H (75-99) mg/dL Urine Appearance (Clear) Urine Protein (Negative) Urine Glucose (UA) (Negative) Ur Leukocyte Esterase (Negative) Ur Squamous Epith Cells (0-4) /hpf Urine Bacteria (None) /hpf Urine Mucus (None) /hpf 10/01/18 Range/Units Unknown POC Glucose (mg/dL) (75-99) mg/dL Urine Appearance Cloudy H (Clear) Urine Protein 1+ H (Negative) Urine Glucose (UA) 2+ H (Negative) Ur Leukocyte Esterase Moderate H (Negative) Ur Squamous Epith Cells 17 H (0-4) /hpf Urine Bacteria Rare H (None) /hpf Urine Mucus Rare H (None) /hpf Assessment and Plan Assessment: Mental Status Examination - this is a 68-year-old female who stated she's had depression for a number years and has attempted to go to [facility] partial hospitalization was told she couldn't go there because her insurance didn't cover. She came in through the ED last night with confusion and feeling depressed. General Appearance: [disheveled, appears older than stated age Speech/Language: [ slow, slurred, rambled, hesitant, halting, monotone, soft] Attitude/Behavior: [ withdrawn, indifferent] Mood: [depressed 7 out of 10, , anxious 7 out of 10, fearful, hopelessness Affect: [ flat, incongruent, blunted constricted,] Orientation: [Not time, person, place situation] Thought Content: [wnl, denies delusions, obsessions, phobias] Risk Factors: [Has suicidal (ideations, plan), not Homicidal (ideations, plan) Perception: [ admits hallucinations (auditory, Thought Processes: [concrete, circumstantial, tangential] Concentration/Attention Span: [ impaired] [Per observation and interview with the patient] Recent Memory: [ impaired] [0 out of 3 in 3 minutes] Remote Memory: [ impaired] [past events, as related history] Intelligence: [below average] [based on history, based on vocabulary, syntax, grammar, and content] Judgement: [ poor] [per patient's behavior/history of present illness] Insight: [ poor] [understanding severity of illness/history of present illness] Admitting Diagnosis: [Bipolar affective disordersevere depression; chronic pain syndrome] Patient Limitations: [medication, non-compliance intellectual impairment, complicated medical illness lack of social supports, Initial Plan of Care: [signed in formal voluntary to [facility] and placed on 15 minute checks.Evaluation by medicine, psychiatry, nursing, social work, and occupational therapy. She'll be evaluated her biopsychosocial including her medical issues pain and diabetes etc. She'll be placed on 15 minute checks and usual [facility] therapeutic environment protocols. She will be expected to go to groups, take her medications and participate with peers and staff and a positive nature. She will be taken off her Cymbalta, gabapentin, Seroquel and placed on Invega for mood stabilization at 3 mg by mouth daily at bedtime and will titrated to resolution of symptoms, she also added Lamictal 50 mg by mouth daily at bedtime for mood stabilization, Mobic 7.5 mg by mouth twice a day instead of Lodine, and for her restless legs syndrome she will get Mirapex 1 mg by mouth daily at bedtime. She'll be teamed on a regular basis to evaluate her overall progress disposition discharge. She should go to [facility] when she is discharged and have a therapist and psychiatrist to follow her medications. Stop Invega 3mg ] 09/29/2018: Psychiatric meds will be held. 10/02/2018 more alert and awake but complains urinary tract problems with a positive leukocyte esterase and cloudy urine. Estimated Length of Stay: [4 days] Further evaluate her medical condition to resolve current delirium dementia versus psychosis. She is today unable to participate in any mental status examination she answers her name does not know the hospital date time or how she got the hospital. Prognosis: [Guarded] (1) Major depress dis, severe Current Visit: Yes Status: Acute Priority: Medium Code(s): F32.2 - MAJOR DEPRESSV DISORD, SINGLE EPSD, SEV W/O PSYCH FEATURES SNOMED Code(s): 207414202 Plan: 09/22/2018 stop meds Seroquel, cymbalta, gabapetin start , invega 3, mirapex 1mg at bedtime and mobic 7.5 bid maintain medications 09/23/2018 09/24/2018 increase lamictal 50mg po qhs 09/25/2018 maintain current medications and evaluate medically by she may be acutely psychotic versus delirium. 09/26/2018: Will maintain her current medications and should not make any changes over the weekend and allow her to metabolically stabilized which will help with her delirium. 09/29/2018. All her psychiatric medications can including Lamictal and Risperdal Mirapex Aricept and Namenda 09/30/2018: Still holding all her psychiatric meds 10/01/2018: Still holding psychiatric meds and one-to-one for safety 10/02/2018: More alert and awake, asked him whether she needs to continue on one -to-one however she does have a urinary tract infection and will use Bactrim double strength twice a day for 10 days Time with Patient: Less than 30
[2018-10-02 17:48] LABS: Glucose,Whole Blood 320 mg/dL (75-99)
[2018-10-02 20:12] LABS: Glucose,Whole Blood 224 mg/dL (75-99)
[2018-10-02] MEDS: INSULIN DETEMIR (LEVEMIR) 100 UNIT/ML SYR SQ SCH (21:45)
[2018-10-02] MEDS: ATORVASTATIN 10 MG TAB PO SCH (21:46)
[2018-10-02] MEDS: SULFAMETHOX-TMP 800-160MG 1 EACH TAB PO SCH (21:46)
[2018-10-03 06:33] LABS: Glucose,Whole Blood 61 mg/dL (75-99)
[2018-10-03] MEDS: LEVOTHYROXINE 112 MCG TAB PO SCH (06:56)
[2018-10-03 07:03] LABS: Glucose,Whole Blood 67 mg/dL (75-99)
[2018-10-03 07:24] LABS: Glucose,Whole Blood 63 mg/dL (75-99)
[2018-10-03 07:38] LABS: Glucose,Whole Blood 88 mg/dL (75-99)
[2018-10-03] MEDS: metFORMIN 500 MG TAB PO SCH ×2 (08:15→20:21)
[2018-10-03] MEDS: LISINOPRIL 10 MG TAB PO SCH (08:15)
[2018-10-03] MEDS: FAMOTIDINE 20 MG TAB PO SCH (08:15)
[2018-10-03] MEDS: INSULIN ASPART (NovoLOG) 100 UNIT/ML VIAL SQ SCH ×7 (08:15→20:22)
[2018-10-03] MEDS: ATENOLOL 50 MG TAB PO SCH (08:15)
[2018-10-03] MEDS: SULFAMETHOX-TMP 800-160MG 1 EACH TAB PO SCH ×2 (08:16→20:21)
--- NOTE | 2018-10-03 10:06 | P.PN ---
Subjective Progress Note Date: 10/03/18 Principal diagnosis: Bipolar affective disordersevere depression; chronic pain syndrome] 09/23/2018:chert reviewed:patient teamed and interviewed in office. Patient stated that she reacted to one of the medications and nauseated. Remains depressed, sad, hopeless and poor sleep 09/24/2018: depressed 7/10, anxiety 6/10, poor sleep; chart reviewed and discussed in team 09/25/2018 remains now acutely confused with lab work showing mild renal failure and increase and BUN and creatinine. She is redirectable but depressed anxious fearful 09/26/2018: Due to her confusion last night the medicine team was called to evaluate. The recommendation is that the encephalopathy is due to change in medications and she is stabilizing today. She is oriented to person place and time. Maintain one-to-one on her for safety. 09/29/2018: Due to her continued confusion and review of the chart along with team this morning we decided to stop all her psychiatric meds. 09/30/2018: Her meds of now been held for 24 hours little bit more alert however short-term memory is still vacant will ask internal medicine to see if we need neurology to further evaluate what can be causing her confusion sensor electrodes electrolytes and CBCs are all within normal she is pleasant to talk to and usually is sleeping and wakes and a startle 10/01/2018 more alert and awake peers that she may have urinary tract infection and will await UA 10/02/2018 more alert and awake today participating in groups needing one-to- one and safety denies any suicidal ideation she does have a large amount of leukoesterase and her urine analysis. Chart reviewed and will team today for deciding whether she needs to continue one on one 10/03/2018: She is more alert awake and describes no depression and no anxiety. She states she feels well but unable to stand and do her ADLs without assistance. 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 She is able to understand that she is in [place] and she is on the hospital and can't remember the name of the hospital. Objective - Vital Signs Vital signs: Vital Signs Temp 97.8 F 10/03/18 06:42 Pulse 61 10/03/18 08:22 Resp 20 10/03/18 08:22 BP 154/67 02/08/19 08:22 Pulse Ox 94 L 10/01/18 06:04 Intake & Output 10/02/18 10/03/18 10/03/18 18:59 06:59 18:59 Weight 100.7 kg - Labs CBC & Chem 7: 09/30/18 15:07 09/30/18 15:07 Labs: Abnormal Lab Results - Last 24 Hours (Table) 10/02/18 10/02/18 10/02/18 Range/Units 12:34 17:36 20:11 POC Glucose (mg/dL) 128 H 320 H 224 H (75-99) mg/dL 10/03/18 10/03/18 10/03/18 Range/Units 06:27 06:54 07:12 POC Glucose (mg/dL) 61 L 67 L 63 L (75-99) mg/dL Assessment and Plan Assessment: Mental Status Examination - this is a 68-year-old female who stated she's had depression for a number years and has attempted to go to [facility] partial hospitalization was told she couldn't go there because her insurance didn't cover. She came in through the ED last night with confusion and feeling depressed. General Appearance: [disheveled, appears older than stated age Speech/Language: [ slow, slurred, rambled, hesitant, halting, monotone, soft] Attitude/Behavior: [ withdrawn, indifferent] Mood: [depressed 7 out of 10, , anxious 7 out of 10, fearful, hopelessness Affect: [ flat, incongruent, blunted constricted,] Orientation: [Not time, person, place situation] Thought Content: [wnl, denies delusions, obsessions, phobias] Risk Factors: [Has suicidal (ideations, plan), not Homicidal (ideations, plan) Perception: [ admits hallucinations (auditory, Thought Processes: [concrete, circumstantial, tangential] Concentration/Attention Span: [ impaired] [Per observation and interview with the patient] Recent Memory: [ impaired] [0 out of 3 in 3 minutes] Remote Memory: [ impaired] [past events, as related history] Intelligence: [below average] [based on history, based on vocabulary, syntax, grammar, and content] Judgement: [ poor] [per patient's behavior/history of present illness] Insight: [ poor] [understanding severity of illness/history of present illness] Admitting Diagnosis: [Bipolar affective disordersevere depression; chronic pain syndrome] Patient Limitations: [medication, non-compliance intellectual impairment, complicated medical illness lack of social supports, Initial Plan of Care: [signed in formal voluntary to [facility] and placed on 15 minute checks.Evaluation by medicine, psychiatry, nursing, social work, and occupational therapy. She'll be evaluated her biopsychosocial including her medical issues pain and diabetes etc. She'll be placed on 15 minute checks and usual [facility] therapeutic environment protocols. She will be expected to go to groups, take her medications and participate with peers and staff and a positive nature. She will be taken off her Cymbalta, gabapentin, Seroquel and placed on Invega for mood stabilization at 3 mg by mouth daily at bedtime and will titrated to resolution of symptoms, she also added Lamictal 50 mg by mouth daily at bedtime for mood stabilization, Mobic 7.5 mg by mouth twice a day instead of Lodine, and for her restless legs syndrome she will get Mirapex 1 mg by mouth daily at bedtime. She'll be teamed on a regular basis to evaluate her overall progress disposition discharge. She should go to community [facility] when she is discharged and have a therapist and psychiatrist to follow her medications. Stop Invega 3mg ] 09/29/2018: Psychiatric meds will be held. 10/02/2018 more alert and awake but complains urinary tract problems with a positive leukocyte esterase and cloudy urine. 10/03/2018 she is more alert and complains of minimal psychiatric problems such as depression or anxiety certainly does have mild neurocognitive behavioral problems. We'll continue supportive care and further evaluate the need for medications on a day by day basis. It certainly has helped being on the Bactrim double strength. Her pain levels are minimal as compared to when she first came into the hospital. Estimated Length of Stay: [4 days] Further evaluate her medical condition to resolve current delirium dementia versus psychosis. She is today unable to participate in any mental status examination she answers her name does not know the hospital date time or how she got the hospital. Prognosis: [Guarded] (1) Major depress dis, severe Current Visit: Yes Status: Acute Priority: Medium Code(s): F32.2 - MAJOR DEPRESSV DISORD, SINGLE EPSD, SEV W/O PSYCH FEATURES SNOMED Code(s): 254555298 Plan: 09/22/2018 stop meds Seroquel, cymbalta, gabapetin start [id number] , invega 3, mirapex 1mg at bedtime and mobic 7.5 bid maintain medications 09/23/2018 09/24/2018 increase lamictal 50mg po qhs 09/25/2018 maintain current medications and evaluate medically by she may be acutely psychotic versus delirium. 09/26/2018: Will maintain her current medications and should not make any changes over the weekend and allow her to metabolically stabilized which will help with her delirium. 09/29/2018. All her psychiatric medications can including Lamictal and Risperdal Mirapex Aricept and Namenda 09/30/2018: Still holding all her psychiatric meds 10/01/2018: Still holding psychiatric meds and one-to-one for safety 10/02/2018: More alert and awake, asked him whether she needs to continue on one -to-one however she does have a urinary tract infection and will use Bactrim double strength twice a day for 10 days 10/03/2018: We'll continue Bactrim double strength and evaluate for safety, psychiatric symptoms, neurocognitive disorder and her ability to recover her ADLs. Anticipate adding Aricept and Namenda when she further clears to the evaluate other psychiatric medications. Time with Patient: Less than 30
[2018-10-03 13:06] LABS: Glucose,Whole Blood 132 mg/dL (75-99)
[2018-10-03 17:49] LABS: Glucose,Whole Blood 185 mg/dL (75-99)
[2018-10-03 20:07] LABS: Glucose,Whole Blood 237 mg/dL (75-99)
[2018-10-03] MEDS: ATORVASTATIN 10 MG TAB PO SCH (20:21)
[2018-10-03] MEDS: INSULIN DETEMIR (LEVEMIR) 100 UNIT/ML SYR SQ SCH (20:22)
[2018-10-03 23:56] LABS: Glucose,Whole Blood 65 mg/dL (75-99)
[2018-10-04 00:38] LABS: Glucose,Whole Blood 65 mg/dL (75-99)
[2018-10-04 01:07] LABS: Glucose,Whole Blood 82 mg/dL (75-99)
[2018-10-04 02:17] LABS: Glucose,Whole Blood 137 mg/dL (75-99)
[2018-10-04] MEDS: LEVOTHYROXINE 112 MCG TAB PO SCH (06:08)
[2018-10-04 06:37] LABS: Glucose,Whole Blood 122 mg/dL (75-99)
[2018-10-04] MEDS: INSULIN ASPART (NovoLOG) 100 UNIT/ML VIAL SQ SCH ×7 (08:12→21:56)
[2018-10-04] MEDS: metFORMIN 500 MG TAB PO SCH ×2 (08:13→21:57)
[2018-10-04] MEDS: LISINOPRIL 10 MG TAB PO SCH (08:13)
[2018-10-04] MEDS: ATENOLOL 50 MG TAB PO SCH (08:13)
[2018-10-04] MEDS: FAMOTIDINE 20 MG TAB PO SCH (08:13)
[2018-10-04] MEDS: SULFAMETHOX-TMP 800-160MG 1 EACH TAB PO SCH ×2 (08:13→21:57)
[2018-10-04 12:23] LABS: Glucose,Whole Blood 216 mg/dL (75-99)
--- NOTE | 2018-10-04 14:13 | P.PN ---
Progress Note - Text Progress Note Date: 10/04/18 Interval history: Patient seen in cross coverage today. She reports that she is eating well. She is attending groups. She seems to relay that she's getting along well with others. She does not voice any medication side effects or problems. Mental status exam: She is alert and cooperative with the interview. Her speech is fluent, not rapid or pressured. Thought processes organized. She does not verbalize any thoughts of harm to self or others. No evidence of active psychosis or agitation. Plan: Patient will be maintained on current medication regimen. We'll continue to monitor for any medication side effects monitor her ongoing response to treatment.
[2018-10-04 17:35] LABS: Glucose,Whole Blood 117 mg/dL (75-99)
[2018-10-04 20:10] LABS: Glucose,Whole Blood 149 mg/dL (75-99)
[2018-10-04] MEDS: INSULIN DETEMIR (LEVEMIR) 100 UNIT/ML SYR SQ SCH (21:43)
[2018-10-04] MEDS: ATORVASTATIN 10 MG TAB PO SCH (21:57)
[2018-10-05 06:32] LABS: Glucose,Whole Blood 131 mg/dL (75-99)
[2018-10-05] MEDS: LEVOTHYROXINE 112 MCG TAB PO SCH (07:25)
[2018-10-05] MEDS: INSULIN ASPART (NovoLOG) 100 UNIT/ML VIAL SQ SCH ×7 (07:48→20:23)
[2018-10-05] MEDS: LISINOPRIL 10 MG TAB PO SCH (07:49)
[2018-10-05] MEDS: FAMOTIDINE 20 MG TAB PO SCH (07:50)
[2018-10-05] MEDS: ATENOLOL 50 MG TAB PO SCH (07:50)
[2018-10-05] MEDS: metFORMIN 500 MG TAB PO SCH ×2 (07:50→20:40)
[2018-10-05] MEDS: SULFAMETHOX-TMP 800-160MG 1 EACH TAB PO SCH ×2 (07:50→20:40)
[2018-10-05 11:06] LABS: Glucose,Whole Blood 226 mg/dL (75-99)
[2018-10-05 12:40] LABS: Glucose,Whole Blood 171 mg/dL (75-99)
--- NOTE | 2018-10-05 14:13 | P.PN ---
Progress Note - Text Progress Note Date: 10/05/18 Interval history: Patient is seen in cross coverage again today. She was found in the group room. She is cooperative. She does state that she slept at least 7 hours last night. She is eating 3 meals a day. She does not voice any problems taking her medications. Mental status exam: She is alert and cooperative with the interview. Her speech is fluent, not rapid or pressured. Her thought processes are organized. Her mood she describes as "upbeat." She does not verbalize any thoughts of harm to self or others. No evidence of psychosis or agitation. Plan: Patient will be maintained on current medication regimen. Continue to monitor her ongoing response to treatment.
[2018-10-05 17:23] LABS: Glucose,Whole Blood 128 mg/dL (75-99)
[2018-10-05 20:21] LABS: Glucose,Whole Blood 128 mg/dL (75-99)
[2018-10-05] MEDS: ATORVASTATIN 10 MG TAB PO SCH (20:40)
[2018-10-05] MEDS ORDERED: INSULIN DETEMIR (LEVEMIR) 100 UNIT/ML SYR SQ SCH (21:00)
[2018-10-06 03:09] LABS: Glucose,Whole Blood 97 mg/dL (75-99)
[2018-10-06] MEDS: LEVOTHYROXINE 112 MCG TAB PO SCH (06:21)
[2018-10-06 06:26] LABS: Glucose,Whole Blood 85 mg/dL (75-99)
[2018-10-06] MEDS: INSULIN ASPART (NovoLOG) 100 UNIT/ML VIAL SQ SCH ×7 (08:33→21:33)
[2018-10-06] MEDS: FAMOTIDINE 20 MG TAB PO SCH (08:42)
[2018-10-06] MEDS: SULFAMETHOX-TMP 800-160MG 1 EACH TAB PO SCH ×2 (08:42→21:34)
[2018-10-06] MEDS: metFORMIN 500 MG TAB PO SCH ×2 (08:42→21:34)
[2018-10-06] MEDS: LISINOPRIL 10 MG TAB PO SCH (08:42)
[2018-10-06] MEDS: ATENOLOL 50 MG TAB PO SCH (08:42)
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
[2018-10-06 12:26] LABS: Glucose,Whole Blood 205 mg/dL (75-99)
[2018-10-06 17:35] LABS: Glucose,Whole Blood 142 mg/dL (75-99)
[2018-10-06 20:30] LABS: Glucose,Whole Blood 198 mg/dL (75-99)
[2018-10-06] MEDS ORDERED: INSULIN DETEMIR (LEVEMIR) 100 UNIT/ML SYR SQ SCH ×3 (21:00)
[2018-10-06] MEDS: ATORVASTATIN 10 MG TAB PO SCH (21:33)
[2018-10-07 03:17] LABS: Glucose,Whole Blood 48 mg/dL (75-99)
[2018-10-07 03:40] LABS: Glucose,Whole Blood 63 mg/dL (75-99)
[2018-10-07 04:14] LABS: Glucose,Whole Blood 73 mg/dL (75-99)
[2018-10-07 06:33] LABS: Glucose,Whole Blood 195 mg/dL (75-99)
[2018-10-07] MEDS: LEVOTHYROXINE 112 MCG TAB PO SCH (06:36)
[2018-10-07] MEDS: INSULIN ASPART (NovoLOG) 100 UNIT/ML VIAL SQ SCH ×7 (07:56→21:26)
[2018-10-07] MEDS: ATENOLOL 25 MG TAB PO SCH (08:56)
[2018-10-07] MEDS: LISINOPRIL 10 MG TAB PO SCH (08:57)
[2018-10-07] MEDS: SULFAMETHOX-TMP 800-160MG 1 EACH TAB PO SCH ×2 (08:57→21:19)
[2018-10-07] MEDS: FAMOTIDINE 20 MG TAB PO SCH (08:57)
[2018-10-07] MEDS: metFORMIN 500 MG TAB PO SCH ×2 (09:00→17:52)
[2018-10-07 12:38] LABS: Glucose,Whole Blood 176 mg/dL (75-99)
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
[2018-10-07] MEDS: ACETAMINOPHEN TAB 325 MG TAB PO PRN (13:15)
[2018-10-07 17:53] LABS: Glucose,Whole Blood 93 mg/dL (75-99)
[2018-10-07 20:23] LABS: Glucose,Whole Blood 136 mg/dL (75-99)
[2018-10-07] MEDS: lamoTRIgine 25 MG TAB PO SCH (21:19)
[2018-10-07] MEDS: ATORVASTATIN 10 MG TAB PO SCH (21:19)
[2018-10-07] MEDS: DONEPEZIL 5 MG TAB PO SCH (21:20)
[2018-10-07] MEDS: risperiDONE 0.25 MG TAB PO SCH (21:20)
[2018-10-07] MEDS: INSULIN DETEMIR (LEVEMIR) 100 UNIT/ML SYR SQ SCH (21:22)
[2018-10-08] MEDS: LEVOTHYROXINE 112 MCG TAB PO SCH (05:51)
[2018-10-08 05:58] LABS: Glucose,Whole Blood 78 mg/dL (75-99)
[2018-10-08] MEDS: INSULIN ASPART (NovoLOG) 100 UNIT/ML VIAL SQ SCH ×7 (06:35→21:41)
[2018-10-08] MEDS: LISINOPRIL 10 MG TAB PO SCH (08:07)
[2018-10-08] MEDS: FAMOTIDINE 20 MG TAB PO SCH (08:07)
[2018-10-08] MEDS: metFORMIN 500 MG TAB PO SCH ×2 (08:07→17:43)
[2018-10-08] MEDS: ATENOLOL 25 MG TAB PO SCH (08:07)
[2018-10-08] MEDS: SULFAMETHOX-TMP 800-160MG 1 EACH TAB PO SCH ×2 (08:07→23:08)
[2018-10-08 11:22] VITALS: BMI 39.0
[2018-10-08 12:39] LABS: Glucose,Whole Blood 235 mg/dL (75-99)
[2018-10-08 17:39] LABS: Glucose,Whole Blood 186 mg/dL (75-99)
[2018-10-08 20:24] LABS: Glucose,Whole Blood 121 mg/dL (75-99)
[2018-10-08] MEDS: INSULIN DETEMIR (LEVEMIR) 100 UNIT/ML SYR SQ SCH (21:36)
[2018-10-08] MEDS: DONEPEZIL 5 MG TAB PO SCH (21:37)
[2018-10-08] MEDS: ATORVASTATIN 10 MG TAB PO SCH (21:37)
[2018-10-08] MEDS: lamoTRIgine 25 MG TAB PO SCH (21:37)
[2018-10-08] MEDS: risperiDONE 0.25 MG TAB PO SCH (21:38)
[2018-10-08 23:21] LABS: Glucose,Whole Blood 82 mg/dL (75-99)
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
[2018-10-09] MEDS: LEVOTHYROXINE 112 MCG TAB PO SCH (07:00)
[2018-10-09 07:11] LABS: Glucose,Whole Blood 165 mg/dL (75-99)
[2018-10-09] MEDS: metFORMIN 500 MG TAB PO SCH ×2 (08:12→17:28)
[2018-10-09] MEDS: SULFAMETHOX-TMP 800-160MG 1 EACH TAB PO SCH ×2 (08:13→20:48)
[2018-10-09] MEDS: FAMOTIDINE 20 MG TAB PO SCH (08:13)
[2018-10-09] MEDS: ATENOLOL 25 MG TAB PO SCH (08:16)
[2018-10-09] MEDS: LISINOPRIL 10 MG TAB PO SCH (08:18)
[2018-10-09] MEDS: INSULIN ASPART (NovoLOG) 100 UNIT/ML VIAL SQ SCH ×9 (09:51→20:48)
--- NOTE | 2018-10-09 11:49 | XR ---
EXAMINATION TYPE: XR thoracic spine 2V DATE OF EXAM: 10/09/2018 COMPARISON: None HISTORY: Trauma, pain TECHNIQUE: Three-view thoracic spine FINDINGS: There are 12 thoracic type vertebral bodies. Pedicles are intact. Disc heights are preserve d. Mild spondylosis is present. Vertebral body heights are preserved IMPRESSION: 1. No acute osseous abnormality thoracic spine.
--- NOTE | 2018-10-09 11:50 | XR ---
EXAMINATION TYPE: XR lumbar spine 2 or 3V DATE OF EXAM: 10/09/2018 COMPARISON: None HISTORY: Trauma, pain TECHNIQUE: Three-view lumbar spine FINDINGS: Pedicle screws are present L4 L5 S1. There is narrowing of disc height L3-4 L4-5 L5-S1. Spo ndylolisthesis of L5 anterior on S1 is present. Vacuum disc phenomenon is present L3-4 L1-2 no 3 disc heights appear preserved. Vertebral body heights are preserved. Note is made of cholelithiasis. IMPRESSION: 1. No acute posttraumatic changes. 2. Degenerative disc changes lower lumbar spine. 3. Cholelithiasis
[2018-10-09 12:49] LABS: Glucose,Whole Blood 239 mg/dL (75-99)
--- NOTE | 2018-10-09 14:20 | P.PN ---
Subjective Progress Note Date: 10/08/18 Principal diagnosis: Bipolar affective disordersevere depression; chronic pain syndrome] 09/23/2018:chert reviewed:patient teamed and interviewed in office. Patient stated that she reacted to one of the medications and nauseated. Remains depressed, sad, hopeless and poor sleep 09/24/2018: depressed 7/10, anxiety 6/10, poor sleep; chart reviewed and discussed in team 09/25/2018 remains now acutely confused with lab work showing mild renal failure and increase and BUN and creatinine. She is redirectable but depressed anxious fearful 09/26/2018: Due to her confusion last night the medicine team was called to evaluate. The recommendation is that the encephalopathy is due to change in medications and she is stabilizing today. She is oriented to person place and time. Maintain one-to-one on her for safety. 09/29/2018: Due to her continued confusion and review of the chart along with team this morning we decided to stop all her psychiatric meds. 09/30/2018: Her meds of now been held for 24 hours little bit more alert however short-term memory is still vacant will ask internal medicine to see if we need neurology to further evaluate what can be causing her confusion sensor electrodes electrolytes and CBCs are all within normal she is pleasant to talk to and usually is sleeping and wakes and a startle 10/01/2018 more alert and awake peers that she may have urinary tract infection and will await UA 10/02/2018 more alert and awake today participating in groups needing one-to- one and safety denies any suicidal ideation she does have a large amount of leukoesterase and her urine analysis. Chart reviewed and will team today for deciding whether she needs to continue one on one 10/03/2018: She is more alert awake and describes no depression and no anxiety. She states she feels well but unable to stand and do her ADLs without assistance. 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 She is able to understand that she is in [place] and she is on the hospital and can't remember the name of the hospital. 10/06/2018: She is alert and awake and denies any depression or suicidal thoughts. She states she sleep feels well and could do her ADLs walking and going to group on her own. She is alert to self, place, time and situation that brought her to the hospital 10/07/2018: hypervigilant, pressured speech, racing thoughts. Pleasant and cooperative. 10/08/2018: Chart reviewed and patient interviewed and more level headed cooperative and able to interact in a positive manner Objective - Vital Signs Vital signs: Vital Signs Temp 97.7 F 10/09/18 08:09 Pulse 54 L 10/09/18 08:09 Resp 16 10/09/18 08:09 BP 120/56 10/09/18 08:09 Pulse Ox 96 10/09/18 08:09 Intake & Output 10/08/18 10/09/18 10/09/18 18:59 06:59 18:59 Weight 96.8 kg - Labs CBC & Chem 7: 09/30/18 15:07 10/07/18 03:23 Labs: Abnormal Lab Results - Last 24 Hours (Table) 10/08/18 10/08/18 10/09/18 Range/Units 17:36 20:22 07:05 POC Glucose (mg/dL) 186 H 121 H 165 H (75-99) mg/dL 10/09/18 Range/Units 12:34 POC Glucose (mg/dL) 239 H (75-99) mg/dL Assessment and Plan Assessment: Mental Status Examination - this is a 68-year-old female who stated she's had depression for a number years and has attempted to go to [facility] partial hospitalization was told she couldn't go there because her insurance didn't cover. She came in through the ED last night with confusion and feeling depressed. General Appearance: [disheveled, appears older than stated age Speech/Language: [ slow, slurred, rambled, hesitant, halting, monotone, soft] Attitude/Behavior: [ withdrawn, indifferent] Mood: [depressed 7 out of 10, , anxious 7 out of 10, fearful, hopelessness Affect: [ flat, incongruent, blunted constricted,] Orientation: [Not time, person, place situation] Thought Content: [wnl, denies delusions, obsessions, phobias] Risk Factors: [deniessuicidal (ideations, plan), not Homicidal (ideations, plan) Perception: [ admits to less hallucinations (auditory, Thought Processes: [concrete, circumstantial, tangential] Concentration/Attention Span: [ impaired] [Per observation and interview with the patient] Recent Memory: [ impaired] [0 out of 3 in 3 minutes] Remote Memory: [ impaired] [past events, as related history] Intelligence: [ average] [based on history, based on vocabulary, syntax, grammar , and content] Judgement: [ fair] [per patient's behavior/history of present illness] Insight: [ fair] [understanding severity of illness/history of present illness] Admitting Diagnosis: [Bipolar affective disordersevere depression; chronic pain syndrome] Patient Limitations: [medication, non-compliance intellectual impairment, complicated medical illness lack of social supports, Initial Plan of Care: [signed in formal voluntary to [facility] and placed on 15 minute checks.Evaluation by medicine, psychiatry, nursing, social work, and occupational therapy. She'll be evaluated her biopsychosocial including her medical issues pain and diabetes etc. She'll be placed on 15 minute checks and usual [facility] therapeutic environment protocols. She will be expected to go to groups, take her medications and participate with peers and staff and a positive nature. She will be taken off her Cymbalta, gabapentin, Seroquel and placed on Invega for mood stabilization at 3 mg by mouth daily at bedtime and will titrated to resolution of symptoms, she also added Lamictal 50 mg by mouth daily at bedtime for mood stabilization, Mobic 7.5 mg by mouth twice a day instead of Lodine, and for her restless legs syndrome she will get Mirapex 1 mg by mouth daily at bedtime. She'll be teamed on a regular basis to evaluate her overall progress disposition discharge. She should go to [facility] when she is discharged and have a therapist and psychiatrist to follow her medications. Stop Invega 3mg ] 09/29/2018: Psychiatric meds will be held. 10/02/2018 more alert and awake but complains urinary tract problems with a positive leukocyte esterase and cloudy urine. 10/03/2018 she is more alert and complains of minimal psychiatric problems such as depression or anxiety certainly does have mild neurocognitive behavioral problems. We'll continue supportive care and further evaluate the need for medications on a day by day basis. It certainly has helped being on the Bactrim double strength. Her pain levels are minimal as compared to when she first came into the hospital. Now adding lamictal 25 mg po qhs, risperdal 0.25 mg po qhs.10/07/2018; aricept 5 mg po qhs Estimated Length of Stay: [4 days] (1) Major depress dis, severe Current Visit: Yes Status: Acute Priority: Medium Code(s): F32.2 - MAJOR DEPRESSV DISORD, SINGLE EPSD, SEV W/O PSYCH FEATURES SNOMED Code(s): 102765237 Plan: 09/22/2018 stop meds Seroquel, cymbalta, gabapetin start [id number] , invega 3, mirapex 1mg at bedtime and mobic 7.5 bid maintain medications 09/23/2018 09/24/2018 increase lamictal 50mg po qhs 09/25/2018 maintain current medications and evaluate medically by she may be acutely psychotic versus delirium. 09/26/2018: Will maintain her current medications and should not make any changes over the weekend and allow her to metabolically stabilized which will help with her delirium. 09/29/2018. All her psychiatric medications can including Lamictal and Risperdal Mirapex Aricept and Namenda 09/30/2018: Still holding all her psychiatric meds 10/01/2018: Still holding psychiatric meds and one-to-one for safety 10/02/2018: More alert and awake, asked him whether she needs to continue on one -to-one however she does have a urinary tract infection and will use Bactrim double strength twice a day for 10 days 10/03/2018: We'll continue Bactrim double strength and evaluate for safety, psychiatric symptoms, neurocognitive disorder and her ability to recover her ADLs. Anticipate adding Aricept and Namenda when she further clears to the evaluate other psychiatric medications. 10/06/2018: Anticipate adding Aricept and Namenda today for the mild neurocognitive disorder that she has. I do not see any affect disorder no really see a thought disorder other than short-term intermediate memory deficits. 10/07/2018: In last 24 hours she's been able to exhibit hypervigilance and pressured speech with sexual connotations with staff. She still remains a little bit confused at times and therefore want add Lamictal for mood stability , Risperdal 0.25 mg by mouth daily at bedtime and Aricept 5 mg by mouth daily at bedtime. 10/08/2018: Has exhibited more calm nature less confused. Was teamed today and chart reviewed and patient interviewed. She is tolerating the new medication and her mood seems more stable. Time with Patient: Less than 30
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
[2018-10-09 17:35] LABS: Glucose,Whole Blood 83 mg/dL (75-99)
[2018-10-09 20:04] LABS: Glucose,Whole Blood 159 mg/dL (75-99)
[2018-10-09] MEDS: risperiDONE 0.25 MG TAB PO SCH (20:47)
[2018-10-09] MEDS: ATORVASTATIN 10 MG TAB PO SCH (20:48)
[2018-10-09] MEDS: lamoTRIgine 25 MG TAB PO SCH (20:48)
[2018-10-09] MEDS: INSULIN DETEMIR (LEVEMIR) 100 UNIT/ML SYR SQ SCH (20:48)
[2018-10-09] MEDS: DONEPEZIL 10 MG TAB PO SCH (20:48)
[2018-10-09] MEDS: ONDANSETRON ODT 4 MG TAB PO PRN (23:38)
[2018-10-10] MEDS: LEVOTHYROXINE 112 MCG TAB PO SCH (06:04)
[2018-10-10 06:06] LABS: Glucose,Whole Blood 126 mg/dL (75-99)
[2018-10-10] MEDS: INSULIN ASPART (NovoLOG) 100 UNIT/ML VIAL SQ SCH ×7 (07:57→20:45)
[2018-10-10] MEDS: FAMOTIDINE 20 MG TAB PO SCH (08:13)
[2018-10-10] MEDS: metFORMIN 500 MG TAB PO SCH ×2 (08:13→18:08)
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
[2018-10-10] MEDS: ATENOLOL 25 MG TAB PO SCH (09:19)
[2018-10-10] MEDS: LISINOPRIL 10 MG TAB PO SCH (09:59)
[2018-10-10 11:04] LABS: Glucose,Whole Blood 182 mg/dL (75-99)
[2018-10-10 12:43] LABS: Glucose,Whole Blood 171 mg/dL (75-99)
[2018-10-10 17:40] LABS: Glucose,Whole Blood 134 mg/dL (75-99)
[2018-10-10 20:18] LABS: Glucose,Whole Blood 150 mg/dL (75-99)
[2018-10-10] MEDS: INSULIN DETEMIR (LEVEMIR) 100 UNIT/ML SYR SQ SCH (20:46)
[2018-10-10] MEDS: DONEPEZIL 10 MG TAB PO SCH (21:08)
[2018-10-10] MEDS: risperiDONE 0.25 MG TAB PO SCH (21:08)
[2018-10-10] MEDS: lamoTRIgine 25 MG TAB PO SCH (21:08)
[2018-10-10] MEDS: ATORVASTATIN 10 MG TAB PO SCH (21:08)
[2018-10-10 23:42] LABS: Glucose,Whole Blood 97 mg/dL (75-99)
[2018-10-11 03:06] LABS: Glucose,Whole Blood 79 mg/dL (75-99)
[2018-10-11] MEDS: LEVOTHYROXINE 112 MCG TAB PO SCH (06:08)
[2018-10-11 06:33] LABS: Glucose,Whole Blood 83 mg/dL (75-99)
[2018-10-11] MEDS: LISINOPRIL 10 MG TAB PO SCH (09:03)
[2018-10-11] MEDS: metFORMIN 500 MG TAB PO SCH ×2 (09:03→17:43)
[2018-10-11] MEDS: FAMOTIDINE 20 MG TAB PO SCH (09:03)
[2018-10-11] MEDS: INSULIN ASPART (NovoLOG) 100 UNIT/ML VIAL SQ SCH ×7 (09:03→22:02)
[2018-10-11] MEDS: ATENOLOL 25 MG TAB PO SCH (09:03)
[2018-10-11 12:24] LABS: Glucose,Whole Blood 280 mg/dL (75-99)
--- NOTE | 2018-10-11 16:51 | P.PN ---
Subjective Progress Note Date: 10/11/18 Principal diagnosis: Bipolar Disorder, recent episode depressed Found her in fair mood. Reports gradual improvement in her mood. She has been sleeping better. Denies having any side effects from medications MSE : Alert, awake, interactive. Poor eye contact. Speech few words. Mood dysphoric and anxious. Denies having any suicidal ideation. Denies any auditory and visual hallucinations. Insight and judgment improving. Plan : Will continue to adjust medications accordingly Objective - Vital Signs Vital signs: Vital Signs Temp 97.7 F 10/11/18 06:22 Pulse 57 L 10/11/18 06:22 Resp 14 10/11/18 06:22 BP 163/69 10/11/18 06:22 Pulse Ox 99 10/09/18 22:52 - Labs CBC & Chem 7: 09/30/18 15:07 10/07/18 03:23 Labs: Abnormal Lab Results - Last 24 Hours (Table) 10/10/18 10/10/18 10/11/18 Range/Units 17:29 20:12 12:22 POC Glucose (mg/dL) 134 H 150 H 280 H (75-99) mg/dL
[2018-10-11 17:39] LABS: Glucose,Whole Blood 99 mg/dL (75-99)
[2018-10-11 20:11] LABS: Glucose,Whole Blood 192 mg/dL (75-99)
[2018-10-11] MEDS: ATORVASTATIN 10 MG TAB PO SCH (22:00)
[2018-10-11] MEDS: DONEPEZIL 10 MG TAB PO SCH (22:00)
[2018-10-11] MEDS: INSULIN DETEMIR (LEVEMIR) 100 UNIT/ML SYR SQ SCH (22:02)
[2018-10-11] MEDS: lamoTRIgine 25 MG TAB PO SCH (22:09)
[2018-10-11] MEDS: risperiDONE 0.25 MG TAB PO SCH (22:10)
[2018-10-12] MEDS: LEVOTHYROXINE 112 MCG TAB PO SCH (06:37)
[2018-10-12 06:41] LABS: Glucose,Whole Blood 123 mg/dL (75-99)
[2018-10-12] MEDS: INSULIN ASPART (NovoLOG) 100 UNIT/ML VIAL SQ SCH ×8 (06:43→21:05)
[2018-10-12] MEDS: LISINOPRIL 10 MG TAB PO SCH (09:12)
[2018-10-12] MEDS: ATENOLOL 25 MG TAB PO SCH (09:12)
[2018-10-12] MEDS: metFORMIN 500 MG TAB PO SCH ×2 (09:12→17:55)
[2018-10-12] MEDS: FAMOTIDINE 20 MG TAB PO SCH (09:12)
[2018-10-12 12:37] LABS: Glucose,Whole Blood 208 mg/dL (75-99)
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
[2018-10-12] MEDS: ACETAMINOPHEN TAB 325 MG TAB PO PRN (12:51)
[2018-10-12 17:22] LABS: Glucose,Whole Blood 129 mg/dL (75-99)
[2018-10-12 20:21] LABS: Glucose,Whole Blood 136 mg/dL (75-99)
[2018-10-12] MEDS: ATORVASTATIN 10 MG TAB PO SCH (21:03)
[2018-10-12] MEDS: risperiDONE 0.25 MG TAB PO SCH (21:03)
[2018-10-12] MEDS: DONEPEZIL 10 MG TAB PO SCH (21:03)
[2018-10-12] MEDS: lamoTRIgine 25 MG TAB PO SCH (21:03)
[2018-10-12] MEDS: INSULIN DETEMIR (LEVEMIR) 100 UNIT/ML SYR SQ SCH (21:04)
[2018-10-12] MEDS: ONDANSETRON ODT 4 MG TAB PO PRN (23:27)
[2018-10-12 23:43] VITALS: RESP 16
[2018-10-12 23:57] LABS: Glucose,Whole Blood 162 mg/dL (75-99)
[2018-10-13] MEDS ORDERED: PROMETHAZINE 25 MG TAB PO PRN (05:46)
[2018-10-13] MEDS: LEVOTHYROXINE 112 MCG TAB PO SCH (06:14)
[2018-10-13 06:26] LABS: Glucose,Whole Blood 94 mg/dL (75-99)
[2018-10-13 07:02] VITALS: BP 169/79; PULSE 54; TEMP 97.6
[2018-10-13] MEDS: metFORMIN 500 MG TAB PO SCH (07:53)
[2018-10-13] MEDS: INSULIN ASPART (NovoLOG) 100 UNIT/ML VIAL SQ SCH ×2 (07:53)
[2018-10-13] MEDS: FAMOTIDINE 20 MG TAB PO SCH (07:54)
[2018-10-13] MEDS: LISINOPRIL 10 MG TAB PO SCH (07:54)
[2018-10-13] MEDS: ATENOLOL 25 MG TAB PO SCH (07:54)
[2018-10-13 10:35] LABS: Basophils # (A) 0.1 k/uL (0-0.2); Basophils % (A) 1 %; Eosinophils # (A) 0.3 k/uL (0-0.7); Eosinophils % (A) 4 %; HCT 36.1 % (34.0-46.0); HGB 12.1 gm/dL (11.4-16.0); Lymphocytes # (A) 2.2 k/uL (1.0-4.8); Lymphocytes % (A) 27 %; MCH 30.1 pg (25.0-35.0); MCHC 33.7 g/dL (31.0-37.0); MCV 89.3 fL (80.0-100.0); Mean Platelet Volume 6.3; Monocytes # (A) 0.4 k/uL (0-1.0); Monocytes % (A) 5 %; Neutrophils % (A) 61 %; Platelet Count 323 k/uL (150-450); RBC 4.04 m/uL (3.80-5.40); RDW 12.9 % (11.5-15.5); WBC 8.1 k/uL (3.8-10.6)
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
== END 2018-10-13 13:10 | disposition home or self-care (01) | DRG 885 ==
LOC: 3MHU 13:55
PROVIDERS: ADMIT Psychiatry & Neurology Psychiatry; ATTEND Psychiatry & Neurology Psychiatry
DX: F31.5 Bipolar disorder, current episode depressed, severe, with psychotic features (principal); G92 Toxic encephalopathy; K80.10 Calculus of gallbladder with chronic cholecystitis without obstruction; R45.851 Suicidal ideations; E11.40 Type 2 diabetes mellitus with diabetic neuropathy, unspecified; E11.65 Type 2 diabetes mellitus with hyperglycemia; E78.5 Hyperlipidemia, unspecified; F03.90 Unspecified dementia, unspecified severity, without behavioral disturbance, psychotic disturbance, mood disturbance, and anxiety; F41.9 Anxiety disorder, unspecified; G25.81 Restless legs syndrome; G89.4 Chronic pain syndrome; I10 Essential (primary) hypertension; K27.9 Peptic ulcer, site unspecified, unspecified as acute or chronic, without hemorrhage or perforation; N19 Unspecified kidney failure; T50.905A Adverse effect of unspecified drugs, medicaments and biological substances, initial encounter; Z79.4 Long term (current) use of insulin; Z79.890 Hormone replacement therapy; Z79.899 Other long term (current) drug therapy; Z87.891 Personal history of nicotine dependence; Z90.710 Acquired absence of both cervix and uterus; Z91.19 Patient's noncompliance with other medical treatment and regimen; Z88.5 Allergy status to narcotic agent; Z86.14 Personal history of Methicillin resistant Staphylococcus aureus infection; E66.01 Morbid (severe) obesity due to excess calories; Z68.38 Body mass index [BMI] 38.0-38.9, adult; K59.00 Constipation, unspecified
CPT/HCPCS: 70450; 71045; 72070; 72100; 74018; 76705; 80048; 80053; 80175; 81001; 81003; 82947; 83036; 85025; 87086; 90686

== ENCOUNTER → 2019-01-07 | Outpatient (CLI) | payer MEDICARE, OTHER ==
--- NOTE | 2019-01-08 10:03 | MM ---
Reason for exam: screening (asymptomatic). History: Patient is postmenopausal. Benign excisional biopsy of the right breast. Physical Findings: A clinical breast exam by your physician is recommended on an annual basis and results should be correlated with mammographic findings. MG 3D Screening Mammo W/Cad Bilateral CC and MLO view(s) were taken. No prior studies available for comparison. There are multiple left sided nodules one with enlarged calcifications. There are indeterminate calcifications bilaterally. ASSESSMENT: Incomplete: need additional imaging evaluation, BI-RAD 0 RECOMMENDATION: Special view mammogram of both breasts. Ultrasound of the left breast. [facility] will attempt to contact patient to return for supplemental views and ultrasound.
== END | disposition home or self-care (01) ==
LOC: RADMAMWWP 09:46
PROVIDERS: ATTEND Internal Medicine
DX: Z12.31 Encounter for screening mammogram for malignant neoplasm of breast (principal)
CPT/HCPCS: 77063; 77067

== ENCOUNTER → 2019-01-23 | Outpatient (CLI) | payer MEDICARE, OTHER ==
--- NOTE | 2019-01-27 10:30 | MM ---
Reason for exam: additional evaluation requested from abnormal screening. Last mammogram was performed 1 month ago. History: Patient is postmenopausal. Benign excisional biopsy of the left breast. Physical Findings: Nurse Summary: 1 x 1cm nodule in the left breast at 4 o'clock (nurse ts). MG 3D Work Up W/Cad YANETH Bilateral CC with magnification, LM with magnification, and LM view(s) were taken. Spot compression CC and MLO view(s) were taken of the left breast. Prior study comparison: January 07, 2019, bilateral MG 3d screening mammo w/cad. The breast tissue is heterogeneously dense. This may lower the sensitivity of mammography. Suspicious group of heterogeneous calcifications left middle posterior depth. Right grouped benign dystrophic calcifications upper outer quadrant middle depth. These results were verbally communicated with the patient and result sheet given to the patient on 01/23/19. ASSESSMENT: Incomplete: need additional imaging evaluation, BI-RAD 0 RECOMMENDATION: Stereotactic core biopsy of the left breast. Called Dr. Perea with mammographic findings and has scheduled an appointment for the patient for 03/05/19 at 11:[address] Lacey. Biopsy scheduled for 03/06/19 at 8:00. PRELIMINARY REPORT CALLED AND FAXED TO DR. LACEY ON 01/27/19.
--- NOTE | 2019-01-27 10:33 | USB ---
Reason for exam: additional evaluation requested from abnormal screening. History: Patient is postmenopausal. Benign excisional biopsy of the left breast. US Breast Workup LT Left complete breast ultrasound includes all four quadrants, the retroareolar region and axilla. Finding demonstrates a 0.5 x 0.4 x 0.5cm oval, hypoechoic lesion at 3 o'clock, a 0.6 x 0.5 x 0.5cm oval, hypoechoic lesion at 3 o'clock, a 0.7 x 0.5 x 0.9cm oval, cystic complex lesion at 4 o'clock BB and a 1.5 x 0.4 x 0.9cm oval, cystic cluster at 4 o'clock BB. These results were verbally communicated with the patient and result sheet given to the patient on 01/23/19. ASSESSMENT: Probably benign, BI-RAD 3 RECOMMENDATION: Ultrasound of the left breast in 6 months. (stereotactic core biopsy left breast)
== END | disposition home or self-care (01) ==
LOC: RADMAMWWP 14:04
PROVIDERS: ATTEND Internal Medicine
DX: R92.8 Other abnormal and inconclusive findings on diagnostic imaging of breast (principal)
CPT/HCPCS: 77066; 76641; G0279; 77062

== ENCOUNTER → 2019-03-05 | Outpatient (CLI) | payer MEDICARE, OTHER ==
[2019-03-05 11:54] VITALS: BP 189/73; PULSE 52; RESP 18; TEMP 98.3; BMI 38.4
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
== END ==
LOC: WWCWWP 11:21
PROVIDERS: ATTEND Surgery
DX: Z53.9 Procedure and treatment not carried out, unspecified reason (principal)

== ENCOUNTER → 2019-03-06 | Day surgery (SDC) | payer MEDICARE, OTHER ==
[2019-03-06 07:27] VITALS: RESP 16; BMI 38.4
--- NOTE | 2019-03-06 09:08 | P.OP ---
Date of Procedure: 03/06/19 Preoperative Diagnosis: mammographic abnormality left breast Postoperative Diagnosis: same/microcalcifications Procedure(s) Performed: sterotactic core biopsy left breast Anesthesia: local Surgeon: Christa Lacey Estimated Blood Loss (ml): 2 Pathology: other (breast tissue) Condition: stable Disposition: same day Indications for Procedure: microcalcifications of the left breast of concern Operative Findings: breast tissue with microcalcifications Description of Procedure: The patient was taken to the stero room and positioned on the Lo-Rad table. A third helper film identified the area of concern. A stero pair view was obtained. The area of concern was targeted. The skin was prepped with betadine. 20 cc of 1% lidocaine was used to anesthetize the area. The needle was driven the correct location. Prefire films were obtained. The needle was fired and post fore films were obtained. The needle was noted to be in the correct location. This was a 9-gauge vacuum-assisted rotating core biopsy needle. Multiple core biopsies were obtained. Radiograph of the specimen revealed the area of concern was removed. A secure marked top hat clip was placed. The patient tolerated the procedure in stable condition. The specimen was sent to pathology. The patient will follow-up Dr. Mederos in 1 week. CC: Nasir Perea
[2019-03-06 09:13] VITALS: BP 176/82; PULSE 51; TEMP 98.1
--- NOTE | 2019-03-06 16:26 | MM ---
EXAMINATION TYPE: MG stereo VAD BX LT DATE OF EXAM: 03/06/2019 COMPARISON: 01/23/2019 CLINICAL HISTORY: Abnormal mammogram TECHNIQUE: Stereotactic guided core biopsy of left breast. FINDINGS: Procedure was performed by surgery. Targeting was provided by radiology. Specimen: Specimen radiograph presented has multiple calcifications. Postprocedure mammogram was obtained. Surgical clip is in the region of the biopsied calcifications. IMPRESSION: 1. Successful stereotactic core biopsy left breast calcifications. Recommendations: 1. Recommendations are pending pathology results. Pathology Results: Benign LEFT BREAST, STEREOTACTIC CORE BIOPSY: Fibrocystic changes including apocrine cyst wall with calcified cyst contents, fibrosis, and columnar cell change Recommendation Follow up mammogram of the left breast in 6 months. ROXANA
== END ==
LOC: RADMAMWWP 06:54
PROVIDERS: ATTEND Surgery
DX: N60.12 Diffuse cystic mastopathy of left breast (principal); R92.0 Mammographic microcalcification found on diagnostic imaging of breast; Z88.5 Allergy status to narcotic agent
CPT/HCPCS: 88305; 19081; A4648; J2001

== ENCOUNTER → 2019-03-12 | Outpatient (CLI) | payer MEDICARE, OTHER ==
[2019-03-12 16:08] VITALS: BP 168/85; PULSE 47; RESP 18; TEMP 98.5; BMI 38.2
--- NOTE | 2019-03-12 16:12 | P.PN ---
Subjective Progress Note Date: 03/12/19 Stacia is status post [place] [id number]. Pathology revealed fibrocystic changes including apocrine cyst wall with calcified cyst contents, fibrosis, and columnar cell change. She has no complaints related to the procedure. Objective - Vital Signs Vital signs: Intake & Output 03/11/19 03/12/19 03/12/19 18:59 06:59 18:59 Weight 94.801 kg - Exam BMI 38.2 - Constitutional General appearance: Present: obese - EENT Eyes: Present: EOMI ENT: Present: hearing grossly normal - Neck Neck: Present: normal ROM - Respiratory Respiratory: bilateral: CTA - Cardiovascular Rhythm: regular Heart sounds: normal: S1, S2 - Gastrointestinal General gastrointestinal: Present: soft - Integumentary Integumentary Comment(s): Left breast mild ecchymosis related to procedure no hematoma or infection - Psychiatric Psychiatric: Present: A&O x's 3, appropriate affect Assessment and Plan Assessment: Impression: 1. Left breast benign changes on stereo biopsy 2. History of arthritis 3. History of diabetes 4. Hypothyroid 5. Depression Plan: 1. Repeat left breast mammogram and physician exam in 6 months Cc: Dr. Nasir Perea
== END | disposition home or self-care (01) ==
LOC: WWCWWP 15:35
PROVIDERS: ATTEND Surgery
DX: Z53.9 Procedure and treatment not carried out, unspecified reason (principal)

== ENCOUNTER 2021-01-31 17:26 | Observation (INO) | payer MEDICARE ==
[2021-01-31 17:43] LABS: Glucose,Whole Blood 112 mg/dL (75-99)
[2021-01-31 18:00] LABS: Basophils % (A) 0 %; Eosinophils # (A) 0.3 k/uL (0-0.7); Eosinophils % (A) 4 %; HCT 36.6 % (34.0-46.0); Lymphocytes # (A) 1.6 k/uL (1.0-4.8); Lymphocytes % (A) 26 %; MCH 28.9 pg (25.0-35.0); MCHC 32.7 g/dL (31.0-37.0); MCV 88.3 fL (80.0-100.0); Mean Platelet Volume 6.9; Monocytes # (A) 0.4 k/uL (0-1.0); Monocytes % (A) 6 %; Neutrophils # (A) 3.8 k/uL (1.3-7.7); Neutrophils % (A) 61 %; Platelet Count 257 k/uL (150-450); RBC 4.15 m/uL (3.80-5.40); RDW 13.5 % (11.5-15.5); WBC 6.2 k/uL (3.8-10.6)
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
[2021-01-31 18:20] LABS: Albumin 4.1 g/dL (3.5-5.0); Calcium 9.8 mg/dL (8.4-10.2); Magnesium 1.7 mg/dL (1.6-2.3); Potassium 3.6 mmol/L (3.5-5.1); Total Bilirubin 0.3 mg/dL (0.2-1.3); Total Protein 6.4 g/dL (6.3-8.2)
[2021-01-31 18:43] LABS: Glucose,Whole Blood 118 mg/dL (75-99)
[2021-01-31] MEDS ORDERED: SODIUM CHLORIDE 0.9% 500 ML 500 ML IV ONE (18:49)
[2021-01-31 19:49] LABS: Glucose,Whole Blood 174 mg/dL (75-99)
[2021-01-31 20:07] LABS: Appearance,Urine Cloudy (Clear); Bacteria,Urine Few /hpf; Bilirubin,Urine Negative (Negative); Blood,Urine Negative (Negative); Color,Urine Yellow; Glucose,Urine (UA) Trace (Negative); Ketones,Urine Negative (Negative); Leukocyte Esterase,Urine Negative (Negative); Mucus,Urine Rare /hpf; Nitrite,Urine Negative (Negative); PH, Urine 5.5 (5.0-8.0); Protein,Urine Trace (Negative); Specific Gravity,Urine 1.009 (1.001-1.035); Squamous Epithelial Cell,Urine 3 /hpf (0-4); Urobilinogen,Urine <2.0 mg/dL (<2.0); WBC,Urine 5 /hpf (0-5)
[2021-01-31] MEDS ORDERED: SODIUM CHLORIDE 0.9% 1,000 ML IV SCH (20:30)
[2021-01-31] MEDS ORDERED: NALOXONE 0.4 MG/ML 1 ML VIAL IV PRN (20:40)
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
[2021-02-01 00:02] LABS: Glucose,Whole Blood 194 mg/dL (75-99)
[2021-02-01] MEDS: HEPARIN SODIUM,PORCINE/PF 5,000 UNIT/0.5 ML SYRINGE SQ SCH ×2 (00:28→08:26)
[2021-02-01 02:24] VITALS: RESP 18
[2021-02-01 03:26] LABS: Glucose,Whole Blood 149 mg/dL (75-99)
[2021-02-01] MEDS ORDERED: LEVOTHYROXINE 112 MCG TAB PO SCH (06:30)
[2021-02-01 06:35] LABS: Calcium 8.9 mg/dL (8.4-10.2); Potassium 3.8 mmol/L (3.5-5.1)
[2021-02-01] MEDS: PENTOXIFYLLINE 400 MG TABLET.ER PO SCH ×2 (08:28→13:50)
[2021-02-01] MEDS: INSULIN ASPART (NovoLOG) 100 UNIT/ML VIAL SQ SCH ×2 (08:34→13:29)
[2021-02-01 08:38] VITALS: BP 155/81; PULSE 56; TEMP 98
[2021-02-01] MEDS ORDERED: atenoloL 50 MG TAB PO SCH (09:00)
[2021-02-01 10:32] LABS: Glucose,Whole Blood 335 mg/dL (75-99)
[2021-02-01 11:47] LABS: Glucose,Whole Blood 295 mg/dL (75-99)
--- NOTE | 2021-02-01 12:21 | P.DS ---
Providers Date of admission: 01/31/21 21:10 Expected date of discharge: 02/01/21 Attending physician: Román Nuñez MD Primary care physician: Physician Nonstaff Hospital Course: HPI: Patient is a 70-year-old female with a PMH of type II DM, hypothyroidism, hyperlipidemia, and hypertension who was brought into the emergency room for altered mentation and hyperglycemia. The patient reports that she was in her usual state of health and was at her friend's house watching television sitting on the couch when she suddenly lost consciousness. The next thing she remembers is waking up with the EMS at her side. She denied falling off the couch, hitting her head, or sustaining any other injuries. As per the documentation, EMS had measured a blood glucose of 15 upon arrival at the scene. The patient was given dextrose IV push and subsequently became more arousable. The patient is unable to provide her friend's phone number and does not know how long she had lost consciousness for. She denied any prior history of loss of consciou sness. She denied experiencing urinary incontinence or tongue biting. Reports feeling confused when she regained consciousness. She reports having taken her normal dose of insulin but having a light lunch. Reports that her blood glucose is usually within her target range. At time of evaluation, she reported feeling fatigued but denied additional complaints. Denied weakness, numbness, tingling. Denied chest discomfort, shortness of breath, palpitations, nausea, vomiting, dizziness. Denied abdominal pain, fever, chills, cough, diarrhea. In the emergency room, the patient's blood glucose was 112 upon arrival. UA was unremarkable, with BUN 21 and creatinine 1.08. Hospital course and treatment: Patient was admitted to the hospital with hypoglycemia and syncopal episode likely associated with hypoglycemia. Lab work is unremarkable. Symptoms resolved. She remained hemodynamically stable. Blood glucose mostly acceptable. She denies chest pain or shortness of breath. Since her symptoms resolved with no recurrence and no further symptoms she'll be discharged home. Patient Condition at Discharge: Stable Plan - Discharge Summary New Discharge Prescriptions: New INSULIN ASPART (NovoLOG) [NovoLOG (formulary)] 0 unit SQ ACHS vial Continue Levothyroxine Sodium [Synthroid] 112 mcg PO DAILY 30 Days #60 tab metFORMIN HCL 1,000 mg PO BID 30 Days #60 tablet Simvastatin [Zocor] 10 mg PO HS 30 Days #30 tablet Insulin Aspart [NovoLOG] 12 units SQ ACHS Insulin Detemir (Levemir) [Levemir] 35 units SQ HS risperiDONE 0.5 mg PO HS atenoloL [Tenormin] 100 mg PO BID lamoTRIgine [LaMICtal] 150 mg PO HS Pentoxifylline 400 mg PO TID-W/MEALS Discharge Medication List Insulin Aspart [NovoLOG] 12 units SQ ACHS 10/13/18 [History] Insulin Detemir (Levemir) [Levemir] 35 units SQ HS 10/13/18 [History] Levothyroxine Sodium [Synthroid] 112 mcg PO DAILY 30 Days #60 tab 10/13/18 [Rx] Simvastatin [Zocor] 10 mg PO HS 30 Days #30 tablet 10/13/18 [Rx] metFORMIN HCL 1,000 mg PO BID 30 Days #60 tablet 10/13/18 [Rx] Pentoxifylline 400 mg PO TID-W/MEALS 01/31/21 [History] atenoloL [Tenormin] 100 mg PO BID 01/31/21 [History] lamoTRIgine [LaMICtal] 150 mg PO HS 01/31/21 [History] risperiDONE 0.5 mg PO HS 01/31/21 [History] INSULIN ASPART (NovoLOG) [NovoLOG (formulary)] 0 unit SQ ACHS vial 02/01/21 [Rx] Follow up Appointment(s)/Referral(s): Nonstaff,Physician [Primary Care Provider] - 1-2 days Discharge Disposition: HOME SELF-CARE
[2021-02-01] MEDS ORDERED: risperiDONE 0.5 MG TAB PO SCH (21:00)
[2021-02-01] MEDS ORDERED: lamoTRIgine 100 MG TAB PO SCH (21:00)
== END 2021-02-01 13:38 | disposition home or self-care (01) ==
LOC: EC 17:26 → 6PED 21:10 → 6NMEDSUR 22:10
PROVIDERS: ADMIT Internal Medicine; ATTEND Internal Medicine
DX: E11.649 Type 2 diabetes mellitus with hypoglycemia without coma (principal); E86.0 Dehydration; E11.40 Type 2 diabetes mellitus with diabetic neuropathy, unspecified; I10 Essential (primary) hypertension; E03.9 Hypothyroidism, unspecified; E78.5 Hyperlipidemia, unspecified; R55 Syncope and collapse; F32.9 Major depressive disorder, single episode, unspecified; F41.9 Anxiety disorder, unspecified; Z20.822 Contact with and (suspected) exposure to COVID-19; Z79.4 Long term (current) use of insulin; Z79.890 Hormone replacement therapy; Z79.899 Other long term (current) drug therapy; Z88.5 Allergy status to narcotic agent; Z90.710 Acquired absence of both cervix and uterus; Z98.891 History of uterine scar from previous surgery; Z98.890 Other specified postprocedural states; Z86.14 Personal history of Methicillin resistant Staphylococcus aureus infection; Z82.0 Family history of epilepsy and other diseases of the nervous system
CPT/HCPCS: 96360; 96361; 96372; 99285; 36415; 93005; 97162; 80053; 80048; 83735; 85025; 81001; 83036; 87635; G0378 ×3; J1644

== ENCOUNTER 2021-02-11 01:22 | Emergency (ER) | payer MEDICARE ==
[2021-02-11 01:30] LABS: Glucose,Whole Blood 65 mg/dL (75-99)
[2021-02-11] MEDS ORDERED: ACETAMINOPHEN TAB 325 MG TAB PO STA (02:01)
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
[2021-02-11 02:18] LABS: Basophils # (A) 0.1 k/uL (0-0.2); Basophils % (A) 1 %; Eosinophils # (A) 0.2 k/uL (0-0.7); Eosinophils % (A) 2 %; HCT 38.3 % (34.0-46.0); HGB 12.2 gm/dL (11.4-16.0); Lymphocytes # (A) 0.9 k/uL (1.0-4.8); Lymphocytes % (A) 8 %; MCH 28.8 pg (25.0-35.0); MCHC 31.9 g/dL (31.0-37.0); MCV 90.3 fL (80.0-100.0); Mean Platelet Volume 7.1; Monocytes # (A) 0.5 k/uL (0-1.0); Monocytes % (A) 4 %; Neutrophils % (A) 85 %; Platelet Count 263 k/uL (150-450); RBC 4.24 m/uL (3.80-5.40); RDW 13.8 % (11.5-15.5); WBC 10.6 k/uL (3.8-10.6)
[2021-02-11 02:23] LABS: Glucose,Whole Blood 106 mg/dL (75-99)
[2021-02-11 02:50] LABS: Albumin 4.3 g/dL (3.5-5.0); Calcium 10.4 mg/dL (8.4-10.2); Potassium 3.8 mmol/L (3.5-5.1); Total Bilirubin 0.2 mg/dL (0.2-1.3); Total Protein 6.6 g/dL (6.3-8.2)
[2021-02-11 03:01] LABS: Glucose,Whole Blood 176 mg/dL (75-99)
[2021-02-11 03:44] VITALS: BP 181/78; PULSE 62; RESP 20; TEMP 98
== END 2021-02-11 03:33 | disposition home or self-care (01) ==
LOC: EC 01:22
DX: E11.649 Type 2 diabetes mellitus with hypoglycemia without coma (principal); E78.5 Hyperlipidemia, unspecified; I10 Essential (primary) hypertension; E07.9 Disorder of thyroid, unspecified; F32.9 Major depressive disorder, single episode, unspecified; F41.9 Anxiety disorder, unspecified; E11.40 Type 2 diabetes mellitus with diabetic neuropathy, unspecified; Z90.09 Acquired absence of other part of head and neck; Z87.891 Personal history of nicotine dependence; Z79.4 Long term (current) use of insulin
CPT/HCPCS: 36415; 80053; 85025; 99285

== ENCOUNTER → 2021-05-30 | Outpatient (CLI) | payer MEDICARE, OTHER ==
--- NOTE | 2021-05-31 13:35 | BD ---
EXAMINATION TYPE: Axial Bone Density DATE OF EXAM: 05/30/2021 COMPARISON: NONE CLINICAL HISTORY: Postmenopausal female. Height: 61.2 IN Weight: 194 LBS FRAX RISK QUESTIONS: Secondary Osteoporosis: 3. Menopause before 45: AGE 44 RISK FACTORS HISTORY OF: Surgery to Spine): 1994 L SPINE Active: YES Diet low in dairy products/other sources of calcium: YES Postmenopausal woman: AGE 44 Take estrogen and/or progesterone medications: NOT NOW How long: TOOK CONTROL FOR 1 YEAR Lost more than 2 inches in height since high school: YES MEDICATIONS: Thyroid Medications: YES Which medication: Levothyroxine How Lon+ YEARS Additional Medications: VIT D, LEVOTHYROXINE, METFORMIN, SIMVASTATIN,ATENOLOL, ANTI DEPRESSANT, CIRCU LATION MED, EXAM MEASUREMENTS: Bone mineral densitometry was performed using the [employer] System. Bone mineral density about the R hip (g/cm2): 1.044 Bone mineral density about the L hip (g/cm2): 1.105 T Score values are as follows: -----R Neck: 0.0 -----L Neck: 0.5 -----R Total: 1.4 -----L Total: 1.6 Bone mineral density BASELINE Bone mineral density about the L Wrist (g/cm2): 0.772 T Score values are as follows: -----Dist. R+U: 2.0 -----Prox. R+U: 1.4 -----Radius total: 1.6 Bone mineral density BASELINE IMPRESSION: Normal (Values between +1 and -1 indicate normal bone mass). Consider repeating this study in 5 year s or sooner if there is some new clinical indication. NOTE: T-SCORE=SD OF THE YOUNG ADULT MEAN.
--- NOTE | 2021-05-31 14:05 | MM ---
Reason for exam: screening (asymptomatic). Last mammogram was performed 2 years and 4 months ago. History: Patient is postmenopausal. Benign MG stereo VAD BX LT of the left breast, March 06, 2019. Benign excisional biopsy of the left breast. Physical Findings: A clinical breast exam by your physician is recommended on an annual basis and results should be correlated with mammographic findings. MG 3D Screening Mammo W/Cad Bilateral CC, MLO, and XCCL view(s) were taken. Prior study comparison: January 23, 2019, bilateral MG 3d work up w/cad YANETH. January 07, 2019, bilateral MG 3d screening mammo w/cad. Finding: There are typically benign, coarse calcifications in the left breast. No significant changes in finding since January 23, 2019 and January 07, 2019. ASSESSMENT: Benign, BI-RAD 2 RECOMMENDATION: Routine screening mammogram of both breasts in 1 year.
== END | disposition home or self-care (01) ==
LOC: RADMAMWWP 14:50
PROVIDERS: ATTEND Family Medicine
DX: Z12.31 Encounter for screening mammogram for malignant neoplasm of breast (principal); Z78.0 Asymptomatic menopausal state; Z79.899 Other long term (current) drug therapy
CPT/HCPCS: 77063; 77067; 77080

== ENCOUNTER → 2021-11-03 | Outpatient (CLI) | payer MEDICARE, OTHER ==
--- NOTE | 2021-11-03 14:31 | XR ---
EXAMINATION TYPE: XR lumbosacral spine min 4V DATE OF EXAM: 11/03/2021 CLINICAL HISTORY: pain COMPARISON: 10/09/2018 TECHNIQUE: Frontal, lateral, and oblique images of the lumbar spine are obtained. FINDINGS: Status post lumbar laminectomy and fusion at L4-S1 with interconnecting pedicular screws in place. Right 1 anterolisthesis L5 on S1 measuring 7.3 mm is unchanged from prior study. Vacuum disc at L3-4. Ventral and dorsal spondylosis. IMPRESSION: Stable evaluation of the lumbar spine with postoperative changes noted.
== END | disposition home or self-care (01) ==
LOC: RADXRMAIN 13:47
PROVIDERS: ATTEND Family Medicine
DX: M54.50 Low back pain, unspecified (principal); Z98.1 Arthrodesis status
CPT/HCPCS: 72110

== ENCOUNTER 2023-07-06 09:03 | Emergency (ER) | payer MEDICARE, OTHER ==
[2023-07-06] MEDS ORDERED: ACETAMINOPHEN TAB 500 MG TAB PO STA (09:36)
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
--- NOTE | 2023-07-06 10:21 | CT ---
EXAMINATION TYPE: CT brain cspine wo con CT DLP: 1463.7 mGycm, Automated exposure control for dose reduction was used. DATE OF EXAM: 07/06/2023 10:05 AM COMPARISON: 09/26/2018 CLINICAL INDICATION:Female, 72 years old with history of Head injury; Fall, dizziness TECHNIQUE: Brain: Multiple axial CT images of the brain were obtained without IV contrast. Cspine: Axial CT images from the skull base to the inferior aspect of T2 we obtained without intraven ous contrast. Coronal and sagittal reformatted images were also reviewed. FINDINGS: Brain: Extra-axial spaces: No abnormal extra-axial fluid collections. Ventricular system: Dilatation in proportion to cerebral atrophy. Cerebral parenchyma: Cerebral atrophy. No acute intraparenchymal hemorrhage or mass effect. The gar -white junction is well differentiated. Scattered hypoattenuating areas are seen within the white mat ter. Cerebellum: Unremarkable. Mass effect: No evidence of midline shift. Intracranial vasculature: Atherosclerotic calcifications of the intracranial vessels. Soft tissues: Normal. Calvarium/osseous structures: No depressed skull fracture. Paranasal sinuses and mastoid air cells: Clear. Visualized orbits: Bilateral aphakia Cervical spine: Fracture: None. Osseous structures: Multilevel degenerative disc disease changes with endplate spurring and disc oste ophyte complex's. Vertebral alignment: Within normal limits. Spinal canal/Neural Foramina: Disc osteophyte complexes at C3-C7 with at least mild spinal canal sten osis. Facet joint uncovertebral joint arthropathy scattered throughout the cervical spine with varyin g degrees of neural foraminal stenosis. Neck soft tissues: Prevertebral soft tissues are within normal limits. IMPRESSION: 1. No acute intracranial process. 2. No evidence of cervical spine fracture. 3. Mild to moderate multilevel degenerative disc disease.
[2023-07-06 10:26] VITALS: BP 154/74; PULSE 51; RESP 18; TEMP 98.4
== END 2023-07-06 10:44 | disposition home or self-care (01) ==
LOC: EC 09:03
DX: S09.90XA Unspecified injury of head, initial encounter (principal); E11.40 Type 2 diabetes mellitus with diabetic neuropathy, unspecified; I10 Essential (primary) hypertension; F31.9 Bipolar disorder, unspecified; F41.9 Anxiety disorder, unspecified; Z79.4 Long term (current) use of insulin; Z79.899 Other long term (current) drug therapy; Z87.891 Personal history of nicotine dependence; Z88.5 Allergy status to narcotic agent; W01.0XXA Fall on same level from slipping, tripping and stumbling without subsequent striking against object, initial encounter; Y93.01 Activity, walking, marching and hiking; Y92.000 Kitchen of unspecified non-institutional (private) residence as the place of occurrence of the external cause
CPT/HCPCS: 70450; 72125; 99284